=== PATIENT | female | born 1930 | race Caucasian/White ===

== ENCOUNTER 2017-04-26 13:00 | Emergency (ER) | payer OTHER, MEDICARE ==
[~2017-04-26] VITALS: Ht 162.6 cm; Wt 69.0 kg
[2017-04-26 13:05] VITALS: TEMP 36.4; Ht 162.6 cm; Wt 69.0 kg
[2017-04-26] MEDS ORDERED: TELM80TA PO (13:28)
[2017-04-26] MEDS ORDERED: FRS/40 PO (13:28)
[2017-04-26] MEDS ORDERED: ASPI81TA28 PO (13:28)
[2017-04-26] MEDS ORDERED: FERR1TAB13 PO (13:28)
[2017-04-26] MEDS ORDERED: POTA10TA PO (13:28)
[2017-04-26] MEDS ORDERED: PRAV20TA PO (13:28)
[2017-04-26] MEDS ORDERED: ACET-1256 PO (13:28)
[2017-04-26] MEDS ORDERED: AMLO-110 PO (13:28)
[2017-04-26] MEDS ORDERED: CARV3.122 PO (13:28)
[2017-04-26 14:34] LABS: BASO % 0.4 %; BASO ABS # 0.03 K/uL (0-0.2); COMPLETE YES; EOS % 7.3 %; HEMATOCRIT 31.7 % (37-47); IG% 0.1 %; LYMPH % 13.5 %; LYMPH ABS # 0.97 K/uL (1.2-3.4); MEAN CELL VOLUME 90.6 fL (80-100); MEAN CORPUSCULAR HEMOGLOBIN 28.3 pg (25-34); MEAN CORPUSCULAR HGB CONC 31.2 g/dl (32-36); MEAN PLATELET VOLUME 9.7 fL (7.4-10.4); MONO % 7.3 %; NEUT % 71.4 %; PLATELET COUNT 215 K/uL (130-400); WHITE BLOOD COUNT 7.16 K/uL (4.8-10.8)
[2017-04-26 14:47] LABS: PROTHROMBIN TIME (PATIENT) 11.2 SECONDS (9.0-12.0)
[2017-04-26 15:05] LABS: BUN/CREATININE RATIO 14.9 (10-20); CALCIUM 9.2 mg/dl (8.5-10.1); CREATININE 1.4 mg/dl (0.60-1.20); POTASSIUM 3.5 mmol/L (3.5-5.1)
--- NOTE | 2017-04-26 15:06 | DIAGNOSTIC IMAGING REPORT ---
RIGHT TIBIA/FIBULA 2 VIEWS ROUTINE CLINICAL HISTORY: Right lower leg pain status post trauma COMPARISON: None. DISCUSSION: The bones are osteopenic. No acute fractures are visualized. There are moderate osteoarthritic changes present within the knee. There are vascular calcifications present. There is calcaneal spurring. There is a corticated ossicle adjacent medial malleolus. This is felt to be old. There is a probable joint effusion within the knee. IMPRESSION: Osteopenia and degenerative change. No acute fractures are visualized. Probable suprapatellar joint effusion. Electronically signed by: Remigio Liu M.D. 04/26/2017 3:05 PM Dictated Date/Time: 04/26/2017 3:03 PM
--- NOTE | 2017-04-26 15:07 | DIAGNOSTIC IMAGING REPORT ---
PELVIS 1 OR 2 VIEW ROUTINE CLINICAL HISTORY: Pelvic pain status post trauma COMPARISON STUDY: No previous studies for comparison. FINDINGS: Degenerative changes are present within the lumbar spine. No acute fractures or dislocations are visualized. Calcifications projected over the sacrum likely reflect calcifications within uterine fibroids. There is no SI joint diastases. There is no symphysis diastases. IMPRESSION: No acute fractures. Electronically signed by: Remigio Liu M.D. 04/26/2017 3:06 PM Dictated Date/Time: 04/26/2017 3:05 PM
--- NOTE | 2017-04-26 15:08 | DIAGNOSTIC IMAGING REPORT ---
RIGHT FEMUR 3 VIEWS CLINICAL HISTORY: Fall with right leg pain. FINDINGS: AP, frog-leg, and lateral views of the right femur are correlated with pelvic radiograph performed concurrently on 04/26/2017. The skeletal structures are osteopenic. There is no radiographic evidence of right femoral fracture. The visualized right hemipelvis appears intact. Advanced arthritic change is seen in the right hip and knee joints. The overlying soft tissues are normal in appearance noting atherosclerotic calcification of the right femoral artery. Large enthesophytes arise in the anterior superior iliac spine. IMPRESSION: Osteopenia and arthritic change as above. There is no radiographic evidence of right femoral fracture. Electronically signed by: Kian Hassan M.D. 04/26/2017 3:06 PM Dictated Date/Time: 04/26/2017 3:05 PM
--- NOTE | 2017-04-26 15:10 | DIAGNOSTIC IMAGING REPORT ---
L-SPINE MIN 4 VIEWS ROUTINE CLINICAL HISTORY: Low back pain status post trauma COMPARISON STUDY: No previous studies for comparison. FINDINGS: There are surgical clips within the right upper quadrant. There is a 6 mm calcification at the level of the right L2 transverse process. This is of uncertain etiology. There is a mild lumbar scoliosis. There are moderately advanced multilevel degenerative changes with multilevel disc space narrowing. No acute fractures are visualized. There is no pathologic bowel dilatation. Pelvic basin calcifications likely relate to calcified uterine fibroids. IMPRESSION: Moderately advanced multilevel degenerative change. No acute fractures or subluxations are visualized. Electronically signed by: Remigio Liu M.D. 04/26/2017 3:08 PM Dictated Date/Time: 04/26/2017 3:07 PM
--- NOTE | 2017-04-26 16:04 | DIAGNOSTIC IMAGING REPORT ---
ULTRASOUND RIGHT VENOUS DOPP LOWER EXT UNILAT CLINICAL HISTORY: Right leg pain and swelling COMPARISON STUDY: No previous studies for comparison. FINDINGS: Real-time and color flow Doppler imaging were performed. Flow was seen within the femoral, popliteal and calf veins with no intraluminal thrombus demonstrated. The saphenous vein is patent. There is a right popliteal fossa cyst measuring 35 x 7 x 24 mm. There is right calf edema. IMPRESSION: No evidence of right lower extremity DVT. Electronically signed by: Remigio Liu M.D. 04/26/2017 4:03 PM Dictated Date/Time: 04/26/2017 3:58 PM
--- NOTE | 2017-04-26 16:09 | EMERGENCY ROOM VISIT NOTE ---
History First contact with patient: 13:23 Chief Complaint: FALL Stated Complaint: FALL - R LEG BRUISED History of Present Illness The patient is a 86 year old female who presents to the Emergency Room with complaints of fall and right leg pain. The patient had a pacemaker placed at the Hospital in [place] hometown in March and was discharged April 16. She is here staying with a friend who is helping to take care of her. She went to her gr[facility]ons [facility] on April 19. She states that they have a sunken living room. She states that she came in from outside and her transition lenses had not lightened up and she did not see the step and fell down. She complains of pain in the right posterior hip, right knee and right leg. She reports swelling and ecchymosis. She states she is able to "hobble around" with her cane. She denies striking her head or having loss of consciousness. She denies syncope. She denies any pain in her chest or trouble breathing. She denies any abdominal pain, nausea or vomiting. She does take aspirin. She states she has had blood clots in her eye in the past. Review of Systems A 10 system review of systems was completed with positives and pertinent negatives listed in the HPI. Past Medical/Surgical History Medical Problems: (1) Hypertension (2) Pacemaker (3) Sick sinus syndrome Social History Housing Status: lives alone Current/Historical Medications Scheduled Amlodipine (Norvasc), 5 MG PO BID Aspirin (Aspirin Ec), 81 MG PO DAILY Carvedilol (Coreg), 3.125 MG PO BIDM Ferrous Sulfate (Kp Ferrous Sulfate), 325 MG PO DAILY Furosemide (Lasix), 40 MG PO DAILY Potassium Chloride (K-Tabs), 10 MEQ PO DAILY Pravastatin (Pravachol ), 20 MG PO DAILY Telmisartan (Micardis), 80 MG PO DAILY Scheduled PRN Acetaminophen (Tylenol), 500 MG PO Q6 PRN for Mild Pain Allergies Coded Allergies: Celecoxib (Unverified Allergy, Intermediate, ., 04/26/17) Conjugated Estrogens (Unverified Allergy, Intermediate, ., 04/26/17) Levofloxacin (Unverified Allergy, Intermediate, ., 04/26/17) Nitrofurantoin (Unverified Allergy, Intermediate, ., 04/26/17) Quinidine (Unverified Allergy, Intermediate, HEART ALMOST STOPPED, 04/26/17 ) Tetanus Toxoid (Unverified Allergy, Intermediate, HIVES, 04/26/17) Sulfisoxazole (Unverified Adverse Reaction, Intermediate, HEADACHE, ) Physical Exam Vital Signs Date Time Temp Pulse Resp B/P (MAP) Pulse Ox O2 Delivery O2 Flow Rate FiO2 04/26/17 19:46 58 18 145/76 96 Room Air 04/26/17 19:00 60 16 137/72 96 Room Air 04/26/17 18:05 52 16 145/72 96 Room Air 04/26/17 17:07 61 18 165/92 96 Room Air 04/26/17 15:00 62 16 150/66 97 Room Air 04/26/17 13:05 36.4 66 18 155/54 97 Room Air Physical Exam VITALS: Vitals are noted on the nurse's note and reviewed by myself. Vital signs stable. GENERAL: This is an 86-year-old female, in no acute distress, nondiaphoretic, well-developed well-nourished. SKIN: There is moderate diffuse edema and ecchymosis noted over the right lower extremity particularly from the knee to the ankle. There is no tenting of the skin. Capillary reflex less than 2 seconds. HEAD: Normocephalic atraumatic. EARS: External auditory canals clear, tympanic membranes pearly farmer without erythema or effusion bilaterally. EYES: Pupils equal round and reactive to light and accommodation. Conjunctivae without injection, sclerae without icterus. Extraocular movements intact. NOSE: Patent, turbinates without inflammation or discharge. MOUTH: Mucous membranes moist. Tonsils are not enlarged. Pharynx without erythema or exudate. Uvula midline. Airway patent. Tongue does not deviate. NECK: Supple without nuchal rigidity. No lymphadenopathy. No thyromegaly. Cervical spine is nontender. No JVD. HEART: Regular rate and rhythm without murmurs gallops or rubs. LUNGS: Clear to auscultation bilaterally without wheezes, rales or rhonchino retractions or accessory muscle use. MUSCULOSKELETAL: There is tenderness to palpation in the right sciatic notch. There is no significant tenderness to palpation over the lumbar vertebrae or coccyx. There is diffuse ecchymosis and edema to the right lower extremity particularly from the knee to the ankle. There are no palpable cords. There is no significant warmth. The patient has decreased range of motion at the knee , ankle and foot secondary to pain. The calf is supple. There is no exquisite tenderness. NEURO: Patient was alert and oriented to person place and time. Deep tendon reflexes 2+ in the lower extremities bilaterally. No focal neurological deficits. Medical Decision & Procedures ER Provider Diagnostic Interpretation: [~ rep ct add3]] ULTRASOUND RIGHT VENOUS DOPP LOWER EXT UNILAT CLINICAL HISTORY: Right leg pain and swelling COMPARISON STUDY: No previous studies for comparison. FINDINGS: Real-time and color flow Doppler imaging were performed. Flow was seen within the femoral, popliteal and calf veins with no intraluminal thrombus demonstrated. The saphenous vein is patent. There is a right popliteal fossa cyst measuring 35 x 7 x 24 mm. There is right calf edema. IMPRESSION: No evidence of right lower extremity DVT. [~ rep ct add3]] RIGHT FEMUR 3 VIEWS CLINICAL HISTORY: Fall with right leg pain. FINDINGS: AP, frog-leg, and lateral views of the right femur are correlated with pelvic radiograph performed concurrently on 04/26/2017. The skeletal structures are osteopenic. There is no radiographic evidence of right femoral fracture. The visualized right hemipelvis appears intact. Advanced arthritic change is seen in the right hip and knee joints. The overlying soft tissues are normal in appearance noting atherosclerotic calcification of the right femoral artery. Large enthesophytes arise in the anterior superior iliac spine. IMPRESSION: Osteopenia and arthritic change as above. There is no radiographic evidence of right femoral fracture. L-SPINE MIN 4 VIEWS ROUTINE CLINICAL HISTORY: Low back pain status post trauma COMPARISON STUDY: No previous studies for comparison. FINDINGS: There are surgical clips within the right upper quadrant. There is a 6 mm calcification at the level of the right L2 transverse process. This is of uncertain etiology. There is a mild lumbar scoliosis. There are moderately advanced multilevel degenerative changes with multilevel disc space narrowing. No acute fractures are visualized. There is no pathologic bowel dilatation. Pelvic basin calcifications likely relate to calcified uterine fibroids. IMPRESSION: Moderately advanced multilevel degenerative change. No acute fractures or subluxations are visualized. [~ rep ct add3]] PELVIS 1 OR 2 VIEW ROUTINE CLINICAL HISTORY: Pelvic pain status post trauma COMPARISON STUDY: No previous studies for comparison. FINDINGS: Degenerative changes are present within the lumbar spine. No acute fractures or dislocations are visualized. Calcifications projected over the sacrum likely reflect calcifications within uterine fibroids. There is no SI joint diastases. There is no symphysis diastases. IMPRESSION: No acute fractures. RIGHT TIBIA/FIBULA 2 VIEWS ROUTINE CLINICAL HISTORY: Right lower leg pain status post trauma COMPARISON: None. DISCUSSION: The bones are osteopenic. No acute fractures are visualized. There are moderate osteoarthritic changes present within the knee. There are vascular calcifications present. There is calcaneal spurring. There is a corticated ossicle adjacent medial malleolus. This is felt to be old. There is a probable joint effusion within the knee. IMPRESSION: Osteopenia and degenerative change. No acute fractures are visualized. Probable suprapatellar joint effusion. Laboratory Results 04/26/17 14:15 Red Blood Count 3.50, Mean Corpuscular Volume 90.6, Mean Corpuscular Hemoglobin 28.3, Mean Corpuscular Hemoglobin Concent 31.2, Mean Platelet Volume 9.7, Neutrophils (%) (Auto) 71.4, Lymphocytes (%) (Auto) 13.5, Monocytes (%) (Auto) 7.3, Eosinophils (%) (Auto) 7.3, Basophils (%) (Auto) 0.4, Neutrophils # (Auto) 5.11, Lymphocytes # (Auto) 0.97, Monocytes # (Auto) 0.52, Eosinophils # (Auto) 0.52, Basophils # (Auto) 0.03 04/26/17 14:15 Test 04/26/17 14:15 White Blood Count 7.16 K/uL (4.8-10.8) Red Blood Count 3.50 M/uL (4.2-5.4) Hemoglobin 9.9 g/dL (12.0-16.0) Hematocrit 31.7 % (37-47) Mean Corpuscular Volume 90.6 fL (80-100) Mean Corpuscular Hemoglobin 28.3 pg (25-34) Mean Corpuscular Hemoglobin Concent 31.2 g/dl (32-36) Platelet Count 215 K/uL (130-400) Mean Platelet Volume 9.7 fL (7.4-10.4) Neutrophils (%) (Auto) 71.4 % Lymphocytes (%) (Auto) 13.5 % Monocytes (%) (Auto) 7.3 % Eosinophils (%) (Auto) 7.3 % Basophils (%) (Auto) 0.4 % Neutrophils # (Auto) 5.11 K/uL (1.4-6.5) Lymphocytes # (Auto) 0.97 K/uL (1.2-3.4) Monocytes # (Auto) 0.52 K/uL (0.11-0.59) Eosinophils # (Auto) 0.52 K/uL (0-0.5) Basophils # (Auto) 0.03 K/uL (0-0.2) RDW Standard Deviation 48.3 fL (36.4-46.3) RDW Coefficient of Variation 14.5 % (11.5-14.5) Immature Granulocyte % (Auto) 0.1 % Immature Granulocyte # (Auto) 0.01 K/uL (0.00-0.02) Prothrombin Time 11.2 SECONDS (9.0-12.0) Prothromb Time International Ratio 1.0 (0.9-1.1) Activated Partial Thromboplast Time 25.2 SECONDS (21.0-31.0) Partial Thromboplastin Ratio 1.0 Anion Gap 10.0 mmol/L (3-11) Est Creatinine Clear Calc Drug Dose 27.0 ml/min Estimated GFR () 39.1 Estimated GFR (Non- 33.7 BUN/Creatinine Ratio 14.9 (10-20) Calcium Level 9.2 mg/dl (8.5-10.1) Total Bilirubin 0.8 mg/dl (0.2-1) Aspartate Amino Transf (AST/SGOT) 25 U/L (15-37) Alanine Aminotransferase (ALT/SGPT) 25 U/L (12-78) Alkaline Phosphatase 88 U/L (45-117) Total Creatine Kinase 56 U/L (26-192) Total Protein 8.4 gm/dl (6.4-8.2) Albumin 4.1 gm/dl (3.4-5.0) Globulin 4.3 gm/dl (2.5-4.0) Albumin/Globulin Ratio 1.0 (0.9-2) ED Course The patient was seen and examined. The patient has a mild anemia. She has mild renal insufficiency. There is no previous for comparison. The patient is recovering from a hospital admission and pacemaker placement. The patient has not been active. She is not getting around well. She has fallen. She has pain and swelling in the right leg. This may represent a ligamentous or meniscal injury in the right knee. This could represent musculoskeletal pain. However, the patient is not doing well at home and may benefit from inpatient rehabilitation. At this time, case management was involved to begin a referral to [facility]. The case was signed out to Joanie Lundberg PA-C. Please see her dictation for disposition. The patient was also seen and examined by who agrees with the assessment and treatment plan. Medical Decision The differential diagnosis includes ambulatory dysfunction, cellulitis, hematoma , DVT, among others Impression Primary Impression: Fall Additional Impressions: Contusion of multiple sites Knee effusion Ambulatory dysfunction Departure Information Referrals No Doctor, Assigned (PCP) Patient Instructions [facility] Health Problem Qualifiers
--- NOTE | 2017-04-26 17:21 | EMERGENCY ROOM VISIT NOTE ---
ED Visit Note First contact with patient: 17:16 This patient was signed out to me from Jessi Salmon PA-C at change of shift. She is an 86-year-old female that presented to the emergency department after a fall. Please see her note for details. The patient and the patient's family do not feel that they are able to care for her at home. We are currently awaiting their arrival of the patient's son to make a decision whether or not the patient is going to be admitted to the hospital or discharged to [facility]. Once the patient's son arrived, the decision was made to send the patient to [facility]. Case management was involved. Transportation arrangements were made, and the patient was discharged in good condition Diagnosis: Fall, leg contusion Dispo: transfer to [facility]
--- NOTE | 2017-04-26 17:38 | EMERGENCY ROOM VISIT NOTE ---
ED Visit Note First contact with patient: 15:05 The patient was seen and examined with Ruma Salmon PA-c. I agree with the history, physical and findings. Please see the note for disposition and details.
[2017-04-26 19:46] VITALS: BP 145/76; PULSE 58; O2SAT 96
== END 2017-04-26 19:48 ==
LOC: C.EDB 13:02 → C.EDD 19:48
DX: S80.11XA Contusion of right lower leg, initial encounter (principal); S70.01XA Contusion of right hip, initial encounter; S80.01XA Contusion of right knee, initial encounter; M25.461 Effusion, right knee; R26.89 Other abnormalities of gait and mobility; W10.9XXA Fall (on) (from) unspecified stairs and steps, initial encounter; Y92.018 Other place in single-family (private) house as the place of occurrence of the external cause; I10 Essential (primary) hypertension; I49.5 Sick sinus syndrome; Z95.0 Presence of cardiac pacemaker; Z79.82 Long term (current) use of aspirin; Z86.718 Personal history of other venous thrombosis and embolism

== ENCOUNTER → 2017-04-28 | Outpatient (CLI) | payer OTHER ==
[~2017-04-28] MED LIST: ACET-1256 PO; AMLO-110 PO; ASPI81TA28 PO; CARV3.122 PO; FERR1TAB13 PO; FRS/40 PO; POTA10TA PO; PRAV20TA PO; TELM80TA PO
--- NOTE | 2017-04-28 16:29 | DIAGNOSTIC IMAGING REPORT ---
RIGHT ANKLE MIN 3 VIEWS ROUTINE CLINICAL HISTORY: Right ankle pain following injury. COMPARISON: Right tibia and fibula radiographs April 26, 2017. FINDINGS: A lucency projects over the distal right fibula. This is probably artifactual. There is no definite acute fracture. There is moderate ankle soft tissue swelling. Irregularity of the medial malleolus is chronic. Talar dome is intact. There is moderate plantar calcaneal spurring. There is mild posterior calcaneal spurring. IMPRESSION: 1. No definite fracture of the right ankle. Lucency projecting over the distal right fibula is likely artifactual. 2. Moderate ankle soft tissue swelling. Electronically signed by: Fredy Larson M.D. 04/28/2017 4:27 PM Dictated Date/Time: 04/28/2017 4:25 PM
--- NOTE | 2017-05-16 07:20 | CODING QUERY NO DIAGNOSIS ---
TREATMENT RENDERED WITHOUT A DIAGNOSIS To promote full compliance with coding requirements relating to patient care, physician participation is requested in all cases of pit operator uncertainty. Please assist us with providing a diagnosis/symptom for the test(s) below: A diagnosis/symptom was not documented on your Order. A valid diagnosis/symptom is required to bill all insurances. Please remember that we are unable to code a diagnosis of rule out, probable, possible, questionable, or suspected. Tests that require a diagnosis: * ANKLE MIN 3 VIEWS ROUTINE DIAGNOSIS: Provider Signature: Date: Thank you Mady Croton [employer] Once completed, please kindly fax back to [phone] For questions please call [phone]
== END | disposition home or self-care (01) ==
LOC: C.RAD 15:55
PROVIDERS: ATTEND Physical Medicine & Rehabilitation
DX: S82.899A Other fracture of unspecified lower leg, initial encounter for closed fracture (principal); X58.XXXA Exposure to other specified factors, initial encounter; M79.89 Other specified soft tissue disorders

== ENCOUNTER 2018-10-31 09:00 | Inpatient (IN) ==
[2018-10-31] MEDS ORDERED: MoRPHine SULFATE 4 MG/ML 1 ML CARP\\VIAL IV PRN (09:47)
[2018-10-31] MEDS ORDERED: ONDANSETRON INJ 2 MG/ML 2 ML VIAL IV STA (09:47)
--- NOTE | 2018-10-31 09:51 | XRay Report ---
XR chest 1V portable HISTORY: Sepsis COMPARISON: None. FINDINGS: No pneumothorax. There are small bilateral pleural effusions. The heart is mildly enlarged. Postoperative changes and a cardiac valve prosthesis are noted. Left-sided dual-chamber pacemaker. T here is mild central pulmonary vascular congestion without overt edema. Old, healed right-sided rib f ractures. Bibasilar densities favor atelectasis from the pleural effusions. Advanced degenerative shayan nges within the right shoulder. IMPRESSION: 1. Cardiomegaly with mild central pulmonary vascular congestion. 2. Small bilateral pleural effusions. Electronically signed by: Reid Silver M.D. 10/31/2018 9:49 AM
--- NOTE | 2018-10-31 10:03 | Emergency Department Note ---
Entered by Benita Patel acting as a scribe for Marcos Martínez DO History of Present Illness General Chief complaint: Illness Stated complaint: abd pain Source: patient, family (son) and other (nursing staff) History of Present Illness Provider complaint: abdominal pain Onset (ago): hour(s) (this morning) Location: abdomen Quality: + other (pain) Associated symptoms: + nausea/vomiting and + other (diarrhea); no fever/chills The patient is an 88 year old female who presents to the Emergency Room with complaints of abdominal pain beginning this morning. She states that she vomited this morning and has had dry heaves since. She reports a history of heart failure but denies a history of liver problems. Per nursing staff, the patient has also had diarrhea and vomiting. Nursing staff states that the patient is not febrile. Her son states that the patient has had an upset stomach since yesterday morning. Her son states that the patient ate a hamburger last night and was able to keep that down but threw up her breakfast and medications this morning. Home Medications Home Medications Medication Instructions Recorded Confirmed Type acetaminophen 325 mg PO Q6H PRN 10/31/18 10/31/18 History aspirin 81 mg PO QAM 10/31/18 10/31/18 History bacitracin 1 applic TOPICAL DAILY PRN 10/31/18 10/31/18 History carvedilol [Coreg] 3.125 mg PO HS 10/31/18 10/31/18 History dextromethorphan-guaifenesin 10 ml PO Q4 PRN 10/31/18 10/31/18 History [Robitussin Cough-Chest Joseph DM] diphenhydramine HCl [Benadryl] 25 mg PO Q8 PRN 10/31/18 10/31/18 History iron ag,[id number] 1 tab PO BID 10/31/18 10/31/18 History [Niferex (Sumalate-Quatrefolic)] losartan [Cozaar] 100 mg PO QAM 10/31/18 10/31/18 History magnesium hydroxide [Milk of 30 ml PO DAILY PRN 10/31/18 10/31/18 History Magnesia] pantoprazole [Protonix] 40 mg PO QAM 10/31/18 10/31/18 History phenyleph-min oil-petrolatum 1 applic AR BID PRN 10/31/18 10/31/18 History [Preparation H] potassium chloride [Klor-Con 10] 10 meq PO QAM 10/31/18 10/31/18 History pravastatin [Pravachol] 20 mg PO HS 10/31/18 10/31/18 History torsemide [Demadex] 20 mg PO BID 10/31/18 10/31/18 History Allergies Allergy/AdvReac Type Severity Reaction Status Date / Time celecoxib Allergy Intermediate . Unverified 10/31/18 10:50 estrogens, conjugated Allergy Intermediate . Unverified 10/31/18 10:50 levofloxacin Allergy Intermediate . Unverified 10/31/18 10:50 nitrofurantoin Allergy Intermediate . Unverified 10/31/18 10:50 quinidine Allergy Intermediate HEART Unverified 10/31/18 10:50 ALMOST STOPPED tetanus toxoid, adsorbed Allergy Intermediate HIVES Unverified 10/31/18 10:50 sulfisoxazole AdvReac Intermediate HEADACHE Unverified 10/31/18 10:50 Past Med/Surg History Medical History HTN (hypertension) (Chronic) Pacemaker (Chronic) Family History Other No pertinent family history Social History Current Living Situation: Family Other Information That Helps Us Care for You: No Feels Safe at Home: Yes Safety Concerns: Feels Safe At This Time Smoking Status: Never smoker Do You Dip or Chew Tobacco: No Second Hand Exposure: No Tobacco Cessation Education Requested by Patient: No Hx Alcohol Use: No Hx Substance Use: No Beliefs That Will Affect Care: None Preferred Language: Kinyarwanda Communication Ability: Effective 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 and A total of 10 systems reviewed and were otherwise negative Physical Exam Vital Signs Vital Signs - 24 hr 10/31/18 09:16 10/31/18 10:12 10/31/18 12:00 Temperature 36.6 C Temperature Source Oral Sepsis Recent Fever Within 48 Hours No Sepsis New/Unexplained Change in Mental Status No Sepsis Action Taken by Nursing No Action Required Pulse Rate 74 Pulse Rate [Apical] 60 60 Respiratory Rate 16 16 20 Respiratory Effort / Characteristics Non-Labored Respiratory Depth Normal Respiratory Pattern Blood Pressure 143/67 H Blood Pressure [Right Arm] 157/50 H 121/45 L Blood Pressure Mean 92 Blood Pressure Mean [Right Arm] 85 70 Pulse Oximetry 88 L 99 99 Oxygen Delivery Method Room Air Room Air Nasal Cannula Oxygen Flow Rate 3 10/31/18 12:33 10/31/18 13:00 10/31/18 13:11 Temperature Temperature Source Sepsis Recent Fever Within 48 Hours Sepsis New/Unexplained Change in Mental Status Sepsis Action Taken by Nursing Pulse Rate Pulse Rate [Apical] 60 60 Respiratory Rate 10 L 12 Respiratory Effort / Characteristics Non-Labored Non-Labored Spontaneous Short of Breath SOB on Exertion Respiratory Depth Normal Normal Shallow Respiratory Pattern Regular Blood Pressure Blood Pressure [Right Arm] 122/77 131/71 Blood Pressure Mean Blood Pressure Mean [Right Arm] 92 91 Pulse Oximetry 96 98 Oxygen Delivery Method Nasal Cannula Nasal Cannula Nasal Cannula Oxygen Flow Rate 3 3 3 10/31/18 13:30 Temperature Temperature Source Sepsis Recent Fever Within 48 Hours Sepsis New/Unexplained Change in Mental Status Sepsis Action Taken by Nursing Pulse Rate Pulse Rate [Apical] 59 L Respiratory Rate 15 Respiratory Effort / Characteristics Non-Labored Respiratory Depth Normal Respiratory Pattern Blood Pressure Blood Pressure [Right Arm] 128/51 L Blood Pressure Mean Blood Pressure Mean [Right Arm] 76 Pulse Oximetry 99 Oxygen Delivery Method Nasal Cannula Oxygen Flow Rate 3 GENERAL: The patient is awake and very uncomfortable appearing. EYES: The conjunctivae are clear. The pupils are round and reactive. EARS, NOSE, MOUTH AND THROAT: The nose is without any evidence of any deformity. Mucous membranes are moist tongue is midline NECK: There is significant JVD bilaterally. RESPIRATORY: Diminished breath sounds were noted throughout. There are rales in all lung mata. Hi or rales CARDIOVASCULAR: Regular rate and rhythm noted there no murmurs rubs or gallops normal S1 normal S2 GASTROINTESTINAL: The abdomen is very distended and diffusely tender. There is no guarding or rigidity. MUSCULOSKELETAL/EXTREMITIES: There is no evidence of gross deformity full range of motion is noted in the hips and shoulders SKIN: There is lower extremity edema noted up to the abdominal wall. NEUROLOGIC: Patient is awake alert and oriented x3. Course 0914: Past medical records reviewed. The patient was evaluated in room C1B, and a complete history and physical examination were performed. 1233: I updated the patient's family. 1244: I discussed the patient's case with Dr. Myrna Maddox who will evaluate the patient for further management. Consultations Consultation #1: Dr. Myrna Maddox Time: 12:44 Administered Medications Fentanyl Citrate (Fentanyl Citrate) 50 mcg IV Q15M PRN PRN Reason: Pain Stop: 11/14/18 12:05 Last Admin: 10/31/18 12:15 Dose: 50 mcg Discontinued Medications Furosemide (Lasix) 40 mg IV NOW STA Stop: 10/31/18 12:04 Last Admin: 10/31/18 12:16 Dose: 40 mg Ondansetron HCl (Zofran) 4 mg IV NOW STA Stop: 10/31/18 09:48 Last Admin: 10/31/18 10:13 Dose: 4 mg Medical Decision Making Differential Diagnosis Differential diagnosis: Etiologies such as biliary colic, cholecystitis, hepatitis, perihepatitis, pancreatitis, cardiac disease, pancreatitis, gastritis, peptic ulcer disease, appendicitis, ovarian cyst, ovarian torsion, pelvic inflammatory disease, cystitis, diverticulitis, mesenteric ischemia, inflammatory bowel disease, ileus , bowel obstruction, aortic pathology, shingles, as well as others were considered. Medical Records Attestation: I reviewed the patient's medical records. Home Medications Current Medication List: was personally reviewed by me Laboratory Data Attestation: I reviewed the patient's lab results. Result diagrams: 10/31/18 09:52 10/31/18 09:52 Lab Results 10/31/18 10/31/18 10/31/18 Range/Units 09:10 09:52 09:52 WBC 4.17 L (4.8-10.8) K/uL RBC 3.82 L (4.2-5.4) M/uL Hgb 9.1 L (12.0-16.0) g/dL Hct 29.8 L (37-47) % MCV 78.0 L (80-100) fL MCH 23.8 L (25-34) pg MCHC 30.5 L (32-36) g/dL RDW Std Deviation 53.3 H (36.4-46.3) fL RDW Coeff of Amos 18.6 H (11.5-14.5) % Plt Count 111 L (130-400) K/uL MPV 10.5 H (7.4-10.4) fL Immature Gran % (Auto) 0.2 % Neut % (Auto) 67.1 % Lymph % (Auto) 8.9 % Dukes % (Auto) 19.7 % Eos % (Auto) 3.4 % Baso % (Auto) 0.7 % Immature Gran # (Auto) 0.01 (0.00-0.02) K/uL Neut # (Auto) 2.80 (1.4-6.5) K/uL Lymph # (Auto) 0.37 L (1.2-3.4) K/uL Dukes # (Auto) 0.82 H (0.11-0.59) K/uL Eos # (Auto) 0.14 (0-0.5) K/uL Baso # (Auto) 0.03 (0-0.2) K/uL PT 12.5 H (9.0-12.0) Seconds INR 1.3 H (0.9-1.1) APTT 29.3 (21.0-31.0) Seconds PTT Ratio 1.1 VBG pH (7.36-7.41) VBG pCO2 (38-50) mmHg VBG pO2 mmHg VBG HCO3 mmol/L VBG O2 Saturation % VBG Base Excess mEq/L Barometric Pressure mm/Hg Sodium (136-145) mmol/L Potassium (3.5-5.1) mmol/L Chloride (98-107) mmol/L Carbon Dioxide (21-32) mmol/L Anion Gap (3-11) BUN (7-18) mg/dl Creatinine (0.6-1.2) mg/dl Est Cr Clr Drug Dosing Est GFR ( Amer) Est GFR (Non-Af Amer) BUN/Creatinine Ratio (10-20) Glucose (70-99) mg/dl Lactate (0.4-2.0) mmol/L Calcium (8.5-10.1) mg/dl Total Bilirubin (0.2-1) mg/dl AST (15-37) U/L ALT (12-78) U/L Alkaline Phosphatase (45-117) U/L Troponin I (0-0.045) ng/ml C-Reactive Protein (0-0.29) mg/dl Total Protein (6.4-8.2) gm/dl Albumin (3.4-5.0) gm/dl Globulin (2.5-4.0) gm/dl Albumin/Globulin Ratio (0.9-2) Procalcitonin (0-0.5) ng/ml Urine Color Urine Appearance (Clear) Urine pH (4.5-7.5) Ur Specific Mccausland (1.000-1.030) Urine Protein (Negative) Urine Glucose (UA) (Negative) Urine Ketones (Negative) Urine Blood (Negative) Urine Nitrite (Negative) Urine Bilirubin (Negative) Urine Urobilinogen (Negative) Ur Leukocyte Esterase (Negative) Urine WBC (Auto) (0-5) /hpf Urine RBC (Auto) (0-4) /hpf U Hyaline Cast (Auto) (0-5) /lpf U Epithel Cells (Auto) (0-5) /lpf Urine Bacteria (Auto) (Negative) Ur Renal Epithelial Cell (0-5) /lpf Amorphous Sediment (None Prsent) Stl C. diff Tox B Gene Neg C.diff Toxin B (Neg) 10/31/18 10/31/18 10/31/18 Range/Units 09:52 09:52 09:52 WBC (4.8-10.8) K/uL RBC (4.2-5.4) M/uL Hgb (12.0-16.0) g/dL Hct (37-47) % MCV (80-100) fL MCH (25-34) pg MCHC (32-36) g/dL RDW Std Deviation (36.4-46.3) fL RDW Coeff of Amos (11.5-14.5) % Plt Count (130-400) K/uL MPV (7.4-10.4) fL Immature Gran % (Auto) % Neut % (Auto) % Lymph % (Auto) % Dukes % (Auto) % Eos % (Auto) % Baso % (Auto) % Immature Gran # (Auto) (0.00-0.02) K/uL Neut # (Auto) (1.4-6.5) K/uL Lymph # (Auto) (1.2-3.4) K/uL Dukes # (Auto) (0.11-0.59) K/uL Eos # (Auto) (0-0.5) K/uL Baso # (Auto) (0-0.2) K/uL PT (9.0-12.0) Seconds INR (0.9-1.1) APTT (21.0-31.0) Seconds PTT Ratio VBG pH (7.36-7.41) VBG pCO2 (38-50) mmHg VBG pO2 mmHg VBG HCO3 mmol/L VBG O2 Saturation % VBG Base Excess mEq/L Barometric Pressure mm/Hg Sodium 139 (136-145) mmol/L Potassium 4.0 (3.5-5.1) mmol/L Chloride 105 (98-107) mmol/L Carbon Dioxide 26 (21-32) mmol/L Anion Gap 7.0 (3-11) BUN 47 H (7-18) mg/dl Creatinine 2.49 H (0.6-1.2) mg/dl Est Cr Clr Drug Dosing Not Reportable Est GFR ( Amer) 19.2 Est GFR (Non-Af Amer) 16.6 BUN/Creatinine Ratio 19.0 (10-20) Glucose 113 H (70-99) mg/dl Lactate 1.4 (0.4-2.0) mmol/L Calcium 8.5 (8.5-10.1) mg/dl Total Bilirubin 1.3 H (0.2-1) mg/dl AST 20 (15-37) U/L ALT 19 (12-78) U/L Alkaline Phosphatase 74 (45-117) U/L Troponin I 0.049 H* (0-0.045) ng/ml C-Reactive Protein 0.65 H (0-0.29) mg/dl Total Protein 8.3 H (6.4-8.2) gm/dl Albumin 3.4 (3.4-5.0) gm/dl Globulin 4.9 H (2.5-4.0) gm/dl Albumin/Globulin Ratio 0.7 L (0.9-2) Procalcitonin 0.09 (0-0.5) ng/ml Urine Color Urine Appearance (Clear) Urine pH (4.5-7.5) Ur Specific Mccausland (1.000-1.030) Urine Protein (Negative) Urine Glucose (UA) (Negative) Urine Ketones (Negative) Urine Blood (Negative) Urine Nitrite (Negative) Urine Bilirubin (Negative) Urine Urobilinogen (Negative) Ur Leukocyte Esterase (Negative) Urine WBC (Auto) (0-5) /hpf Urine RBC (Auto) (0-4) /hpf U Hyaline Cast (Auto) (0-5) /lpf U Epithel Cells (Auto) (0-5) /lpf Urine Bacteria (Auto) (Negative) Ur Renal Epithelial Cell (0-5) /lpf Amorphous Sediment (None Prsent) Stl C. diff Tox B Gene (Neg) 10/31/18 10/31/18 Range/Units 09:52 11:30 WBC (4.8-10.8) K/uL RBC (4.2-5.4) M/uL Hgb (12.0-16.0) g/dL Hct (37-47) % MCV (80-100) fL MCH (25-34) pg MCHC (32-36) g/dL RDW Std Deviation (36.4-46.3) fL RDW Coeff of Amos (11.5-14.5) % Plt Count (130-400) K/uL MPV (7.4-10.4) fL Immature Gran % (Auto) % Neut % (Auto) % Lymph % (Auto) % Dukes % (Auto) % Eos % (Auto) % Baso % (Auto) % Immature Gran # (Auto) (0.00-0.02) K/uL Neut # (Auto) (1.4-6.5) K/uL Lymph # (Auto) (1.2-3.4) K/uL Dukes # (Auto) (0.11-0.59) K/uL Eos # (Auto) (0-0.5) K/uL Baso # (Auto) (0-0.2) K/uL PT (9.0-12.0) Seconds INR (0.9-1.1) APTT (21.0-31.0) Seconds PTT Ratio VBG pH 7.37 (7.36-7.41) VBG pCO2 43 (38-50) mmHg VBG pO2 36 mmHg VBG HCO3 24 mmol/L VBG O2 Saturation 65.4 % VBG Base Excess -1.4 mEq/L Barometric Pressure 736.4 mm/Hg Sodium (136-145) mmol/L Potassium (3.5-5.1) mmol/L Chloride (98-107) mmol/L Carbon Dioxide (21-32) mmol/L Anion Gap (3-11) BUN (7-18) mg/dl Creatinine (0.6-1.2) mg/dl Est Cr Clr Drug Dosing Est GFR ( Amer) Est GFR (Non-Af Amer) BUN/Creatinine Ratio (10-20) Glucose (70-99) mg/dl Lactate (0.4-2.0) mmol/L Calcium (8.5-10.1) mg/dl Total Bilirubin (0.2-1) mg/dl AST (15-37) U/L ALT (12-78) U/L Alkaline Phosphatase (45-117) U/L Troponin I (0-0.045) ng/ml C-Reactive Protein (0-0.29) mg/dl Total Protein (6.4-8.2) gm/dl Albumin (3.4-5.0) gm/dl Globulin (2.5-4.0) gm/dl Albumin/Globulin Ratio (0.9-2) Procalcitonin (0-0.5) ng/ml Urine Color Yellow Urine Appearance Turbid H (Clear) Urine pH 5.0 (4.5-7.5) Ur Specific Mccausland 1.016 (1.000-1.030) Urine Protein Negative (Negative) Urine Glucose (UA) Negative (Negative) Urine Ketones Negative (Negative) Urine Blood 2+ H (Negative) Urine Nitrite Negative (Negative) Urine Bilirubin Negative (Negative) Urine Urobilinogen Negative (Negative) Ur Leukocyte Esterase Negative (Negative) Urine WBC (Auto) 1-5 (0-5) /hpf Urine RBC (Auto) 5-10 H (0-4) /hpf U Hyaline Cast (Auto) 0 (0-5) /lpf U Epithel Cells (Auto) >30 H (0-5) /lpf Urine Bacteria (Auto) Negative (Negative) Ur Renal Epithelial Cell 5-10 H (0-5) /lpf Amorphous Sediment Present H (None Prsent) Stl C. diff Tox B Gene (Neg) Imaging Data Radiologist's Impression: Radiology results as stated below per my review and the radiologist's interpretation: XR chest 1V portable HISTORY: Sepsis COMPARISON: None. FINDINGS: No pneumothorax. There are small bilateral pleural effusions. The heart is mildly enlarged. Postoperative changes and a cardiac valve prosthesis are noted. Left-sided dual-chamber pacemaker. There is mild central pulmonary vascular congestion without overt edema. Old, healed right-sided rib fractures. Bibasilar densities favor atelectasis from the pleural effusions. Advanced degenerative changes within the right shoulder. IMPRESSION: 1. Cardiomegaly with mild central pulmonary vascular congestion. 2. Small bilateral pleural effusions. Electronically signed by: Reid Silver M.D. 10/31/2018 9:49 AM ABDOMEN AND PELVIS CT WITHOUT CONTRAST CT DOSE: 1093.70 mGy.cm HISTORY: Generalized abdominal pain. vomiting TECHNIQUE: Multiaxial CT images of the abdomen and pelvis were performed without contrast. A dose lowering technique was utilized adhering to the principles of ALARA. COMPARISON STUDY: None. FINDINGS: Moderate right and small left pleural effusions. Consolidation within the bilateral lower lobes posteriorly likely represent compressive atelectasis. The heart is mildly enlarged. Pacemaker wires are noted. Aortic valve prosthesis is noted. No pneumoperitoneum. No pneumatosis. No suspicious lytic or blastic osseous lesions. Severe body wall edema. Cholecystectomy. The unenhanced liver, adrenal glands, pancreas, and kidneys are unremarkable. No renal or ureteral stones. No hydronephrosis. The spleen is mildly enlarged measuring 13 cm in length. Calcified plaque throughout the normal caliber abdominal aorta. No significant retroperitoneal lymphadenopathy. Small amount of ascites is present. Calcifications within the uterus consistent with fibroids. The bladder is not well-distended but appears unremarkable. Suboptimal evaluation for bowel pathology due to the lack of intravenous and oral contrast. However, there is no definite bowel wall thickening or obstruction. Sigmoid diverticulosis. No evidence for diverticulitis. IMPRESSION: 1. Severe body wall edema, bilateral pleural effusions, and a small amount of ascites. 2. Mild splenomegaly. 3. No definite bowel wall thickening or obstruction. 4. Cholecystectomy. 5. Calcified uterine fibroids. 6. Colonic diverticulosis. No evidence for diverticulitis. Electronically signed by: Reid Silver M.D. 10/31/2018 11:37 AM ECG Data Attestation: I personally reviewed and interpreted this ECG as follows: Indication: abdominal pain Rate (beats per minute): 61 Rhythm: other (atrial paced) Findings: + ST depression (inferior and lateral); no PAC, no PVC and no ectopy Comparison ECG Date: no prior available Blood Pressure Blood Pressure Findings: Low blood pressure Blood Pressure Disposition: further management by hospitalist CHELA Valentino The patient is an 88-year-old female who presented to the emergency department for an evaluation of difficulty breathing and abdominal pain nausea vomiting and diarrhea. The patient had very distended abdomen with anasarca. I discussed the patient's laboratory and radiographic studies with her. She was found to have signs of congestive failure with an elevated creatinine. She was treated with a small amount of Lasix and a Meade catheter was placed. She was reevaluated multiple times. The patient does not have a local physician. At this time this does appear to be consistent with volume overload. I discussed this case with the on-call [facility] hospitalist. They have agreed to evaluate the patient in the emergency department for further management and disposition. Impression & Plan Pancytopenia, Anasarca, CHF (congestive heart failure) Discharge Plan Visit Data Chief Complaint: Illness Stated Complaint: abd pain ED Provider: Marcos Martínez Discharge Problem: Pancytopenia, Anasarca, CHF (congestive heart failure) Patient Disposition: Being Evaluated by Hospitalist Forms Stand Alone Forms: My [facility] Prescriptions Prescriptions: No Action acetaminophen 325 mg Tablet 325 mg PO Q6H PRN (Reason: Pain) RF: 0 torsemide [Demadex] 20 mg Tablet 20 mg PO BID RF: 0 bacitracin 500 unit/gram Ointment 1 applic TOPICAL DAILY PRN (Reason: REMOVAL OF PICC) RF: 0 potassium chloride [Klor-Con 10] 10 mEq tablet extended release 10 meq PO QAM RF: 0 aspirin 81 mg Tablet,Delayed Release (Dr/Ec) 81 mg PO QAM RF: 0 carvedilol [Coreg] 3.125 mg tablet 3.125 mg PO HS RF: 0 magnesium hydroxide [Milk of Magnesia] 400 mg/5 mL Suspension 30 ml PO DAILY PRN (Reason: Constipation) RF: 0 pantoprazole [Protonix] 40 mg Tablet,Delayed Release (Dr/Ec) 40 mg PO QAM RF: 0 diphenhydramine HCl [Benadryl] 25 mg Capsule 25 mg PO Q8 PRN (Reason: Itching) RF: 0 pravastatin [Pravachol] 20 mg tablet 20 mg PO HS RF: 0 dextromethorphan-guaifenesin [Robitussin Cough-Chest Joseph DM] 5-100 mg/5 mL Liquid 10 ml PO Q4 PRN (Reason: Cough) RF: 0 losartan [Cozaar] 100 mg tablet 100 mg PO QAM RF: 0 phenyleph-min oil-petrolatum [Preparation H] 0.25-14-74.9 % Ointment 1 applic AR BID PRN (Reason: Itching) RF: 0 iron ag,[id number] [Niferex (Sumalate-Quatrefolic)] 150 mg iron- 60 mg-1 mg Tablet 1 tab PO BID RF: 0 Referrals Referrals: PCP,NO [Primary Care Provider] - The scribe's documentation has been prepared under my direction and personally reviewed by me in its entirety. I confirm that the note above accurately reflects all work, treatment, procedures, and medical decision making performed by me.
[2018-10-31 10:07] LABS: Base Excess VBG -1.4 mEq/L; Oxygen Saturation VBG 65.4 %; pH VBG 7.37 (7.36-7.41)
[2018-10-31 10:12] LABS: INR 1.3 (0.9-1.1); Partial Thromboplastin Ratio 1.1; Partial Thromboplastin Time 29.3 Seconds (21.0-31.0); Prothrombin Time 12.5 Seconds (9.0-12.0)
[2018-10-31 10:16] LABS: Hematocrit (blood only) 29.8 % (37-47); Hemoglobin 9.1 g/dL (12.0-16.0); Mean Corpuscular Hgb Conc 30.5 g/dL (32-36); Mean Platelet Volume 10.5 fL (7.4-10.4); Platelet Count 111 K/uL (130-400); RDW Coefficient of Variation 18.6 % (11.5-14.5); RDW Standard Deviation 53.3 fL (36.4-46.3); Red Blood Count 3.82 M/uL (4.2-5.4); White Blood Count 4.17 K/uL (4.8-10.8)
[2018-10-31 10:19] LABS: Alanine Aminotransferase 19 U/L (12-78); Albumin Level 3.4 gm/dl (3.4-5.0); Aspartate Aminotransferase 20 U/L (15-37); Blood Urea Nitrogen 47 mg/dl (7-18); C Reactive Protein 0.65 mg/dl (0-0.29); Calcium 8.5 mg/dl (8.5-10.1); Carbon Dioxide 26 mmol/L (21-32); Chloride 105 mmol/L (98-107); Est GFR (African American) 19.2; Est GFR (Non-African American) 16.6; Glucose 113 mg/dl (70-99); Sodium 139 mmol/L (136-145)
[2018-10-31 10:28] LABS: Albumin Globulin Ratio 0.7 (0.9-2); Alkaline Phosphatase 74 U/L (45-117); Bilirubin,Total 1.3 mg/dl (0.2-1); Globulin 4.9 gm/dl (2.5-4.0); Total Protein 8.3 gm/dl (6.4-8.2); Troponin I 0.049 ng/ml (0-0.045)
[2018-10-31 10:30] LABS: Basophils # (auto) 0.03 K/uL (0-0.2); Basophils % (auto) 0.7 %; Eosinophils # (auto) 0.14 K/uL (0-0.5); Eosinophils % (auto) 3.4 %; Immature Granulocytes # (auto) 0.01 K/uL (0.00-0.02); Immature Granulocytes % (auto) 0.2 %; Lymphocytes # (auto) 0.37 K/uL (1.2-3.4); Lymphocytes % (auto) 8.9 %; Monocytes # (auto) 0.82 K/uL (0.11-0.59); Monocytes % (auto) 19.7 %; Neutrophils % (auto) 67.1 %
--- NOTE | 2018-10-31 11:38 | CT Scan Report ---
ABDOMEN AND PELVIS CT WITHOUT CONTRAST CT DOSE: 1093.70 mGy.cm HISTORY: Generalized abdominal pain. vomiting TECHNIQUE: Multiaxial CT images of the abdomen and pelvis were performed without contrast. A dose lo wering technique was utilized adhering to the principles of ALARA. COMPARISON STUDY: None. FINDINGS: Moderate right and small left pleural effusions. Consolidation within the bilateral lower l obes posteriorly likely represent compressive atelectasis. The heart is mildly enlarged. Pacemaker wi res are noted. Aortic valve prosthesis is noted. No pneumoperitoneum. No pneumatosis. No suspicious l ytic or blastic osseous lesions. Severe body wall edema. Cholecystectomy. The unenhanced liver, adren al glands, pancreas, and kidneys are unremarkable. No renal or ureteral stones. No hydronephrosis. Th e spleen is mildly enlarged measuring 13 cm in length. Calcified plaque throughout the normal caliber abdominal aorta. No significant retroperitoneal lymphadenopathy. Small amount of ascites is present. Calcifications within the uterus consistent with fibroids. The bladder is not well-distended but madelaine ears unremarkable. Suboptimal evaluation for bowel pathology due to the lack of intravenous and oral contrast. However, there is no definite bowel wall thickening or obstruction. Sigmoid diverticulosis. No evidence for diverticulitis. IMPRESSION: 1. Severe body wall edema, bilateral pleural effusions, and a small amount of ascites. 2. Mild splenomegaly. 3. No definite bowel wall thickening or obstruction. 4. Cholecystectomy. 5. Calcified uterine fibroids. 6. Colonic diverticulosis. No evidence for diverticulitis. Electronically signed by: Reid Silver M.D. 10/31/2018 11:37 AM
[2018-10-31] MEDS ORDERED: FUROSEMIDE 40 MG/4 ML VIAL IV STA (12:03)
[2018-10-31] MEDS ORDERED: fentaNYL citrate 100 MCG/2 ML VIAL IV PRN (12:06)
[2018-10-31 12:07] LABS: Appearance Urine Turbid (Clear); Bacteria Urine Automated Negative (Negative); Bilirubin Urine Negative (Negative); Blood Urine 2+ (Negative); Color Urine Yellow; Epithelial Cell Urine Auto >30 /lpf (0-5); Glucose Urine UA Negative (Negative); Ketones Urine Negative (Negative); Leukocyte Esterase Urine Negative (Negative); Nitrite Urine Negative (Negative); Protein Urine Negative (Negative); Specific Gravity Urine 1.016 (1.000-1.030); Urobilinogen Urine Negative (Negative)
[2018-10-31 12:27] LABS: Amorphous Sediment Urine Present (None Prsent); Cast Urine Automated 0 /lpf (0-5)
--- NOTE | 2018-10-31 13:01 | History & Physical Report ---
Date of Service October 31, 2018 Assessment & Plan (1) CHF (congestive heart failure): - Admit to tele PCU - Trend cardiac biomarkers, initial set was elevated - EKG reviewed showing an atrial paced rhythm - Check 2 D echo - Cardiology consulted - Have requested HIM records from [facility] from recent hospitalization - Lasix 40 mg IV given in the ER, will continue with 60 mg IV twice daily with severe anasarca. Patient's creatinine = 2.49 currently, likely will improve with diuresis with severe hypervolemia. - PT/OT consulted (2) Anasarca: -Checking hepatic panel -Continue diuresis as above -Will consult nephrology to assist with volume status and electrolytes, Dr. Villafuerte. -abdominal CT reviewed: 1. Severe body wall edema, bilateral pleural effusions, and a small amount of ascites. 2. Mild splenomegaly. 3. No definite bowel wall thickening or obstruction. 4. Cholecystectomy. 5. Calcified uterine fibroids. 6. Colonic diverticulosis. No evidence for diverticulitis. (3) Pacemaker: -Cardiology to determine if needs for pacemaker interrogation (4) Hypertension: Continue on carvedilol 3.125 mg p.o. HS, losartan 100 mg daily, aspirin 81 mg daily -Holding torsemide with IV diuresis as above (5) HLD (hyperlipidemia): -Continue pravastatin 20 mg HS (6) Sick sinus syndrome: -Status post pacemaker insertion. (7) Pancytopenia: -Follow a.m. labs, unknown cause of the underlying pancytopenia. Await records from outside hospital for more history. (8) Nausea & vomiting: (9) Diarrhea: - Possible GI virus? Monitor for increased signs of infection - FOllow BCx - C diff pending - No fluids with severe hypervolemia (10) DVT prophylaxis: -Teds, SCDs, Lovenox subcu History of Present Illness Primary Care Provider: NO PCP This is a 88 yo F with PMHx of HTN, HLD, CHF, baseline kidney disease, recent history of pneumonia. Discussion was held with her son over the phone as the patient is unable to provide adequate history. Pt was recently admitted to [facility] for about 6 weeks for possible cellulitis and pneumonia as well as CHF exacerbation. She was recently discharged from inpatient rehab on 10/27/18 and went to live with her son, Skyler in [place]. Prior to this admission at [facility] she was living at home by herself. Today the pt breathing worsened while sitting at rest, but had been progressively getting worse over the past ~3d. Patient is poorly compliant with fluid restriction guidelines and sodium restriction despite her excess of fluid and has chronically dry mouth. Patient's son notes she has had increased confusion as well with baseline difficulty with recall of events and lack of short term memory. She does use a walker at baseline. Does not require supplemental O2. Pt had increased nausea and vomiting, diarrhea which started last evening and called 911 this morning. Pts son and were home but report she did not remember that she was in her son's house, and thought that she was alone. Allergies Allergy/AdvReac Type Severity Reaction Status Date / Time celecoxib Allergy Intermediate . Unverified 10/31/18 10:50 estrogens, conjugated Allergy Intermediate . Unverified 10/31/18 10:50 levofloxacin Allergy Intermediate . Unverified 10/31/18 10:50 nitrofurantoin Allergy Intermediate . Unverified 10/31/18 10:50 quinidine Allergy Intermediate HEART Unverified 10/31/18 10:50 ALMOST STOPPED tetanus toxoid, adsorbed Allergy Intermediate HIVES Unverified 10/31/18 10:50 sulfisoxazole AdvReac Intermediate HEADACHE Unverified 10/31/18 10:50 Home Medications Home Medications Medication Instructions Recorded Confirmed Type acetaminophen 325 mg PO Q6H PRN 10/31/18 10/31/18 History aspirin 81 mg PO QAM 10/31/18 10/31/18 History bacitracin 1 applic TOPICAL DAILY PRN 10/31/18 10/31/18 History carvedilol [Coreg] 3.125 mg PO HS 10/31/18 10/31/18 History dextromethorphan-guaifenesin 10 ml PO Q4 PRN 10/31/18 10/31/18 History [Robitussin Cough-Chest Joseph DM] diphenhydramine HCl [Benadryl] 25 mg PO Q8 PRN 10/31/18 10/31/18 History iron ag,[id number] 1 tab PO BID 10/31/18 10/31/18 History [Niferex (Sumalate-Quatrefolic)] losartan [Cozaar] 100 mg PO QAM 10/31/18 10/31/18 History magnesium hydroxide [Milk of 30 ml PO DAILY PRN 10/31/18 10/31/18 History Magnesia] pantoprazole [Protonix] 40 mg PO QAM 10/31/18 10/31/18 History phenyleph-min oil-petrolatum 1 applic [place] BID PRN 10/31/18 10/31/18 History [Preparation H] potassium chloride [Klor-Con 10] 10 meq PO QAM 10/31/18 10/31/18 History pravastatin [Pravachol] 20 mg PO HS 10/31/18 10/31/18 History torsemide [Demadex] 20 mg PO BID 10/31/18 10/31/18 History Past Med/Surg History Medical History HTN (hypertension) (Chronic) Pacemaker (Chronic) Family History Other No pertinent family history Social History Current Living Situation: Family Other Information That Helps Us Care for You: No Feels Safe at Home: Yes Safety Concerns: Feels Safe At This Time Smoking Status: Never smoker Do You Dip or Chew Tobacco: No Second Hand Exposure: No Tobacco Cessation Education Requested by Patient: No Hx Alcohol Use: No Hx Substance Use: No Beliefs That Will Affect Care: None Preferred Language: Nepali Communication Ability: Effective Rehab Specialist Required: No Review of Systems Unobtainable due to cognitive status Physical Exam 2 Vital Signs (Past 24 Hours): Last Vital Signs Temp 36.6 C 10/31/18 09:16 Pulse 60 10/31/18 12:33 Resp 10 L 10/31/18 12:33 BP 122/77 10/31/18 12:33 Pulse Ox 96 10/31/18 12:33 Physical Exam: General: awake, alert, complaining of catheter, unable to provide history. Head: Normocephalic, atraumatic ENT: PERRL, EOMI, no pharyngeal exudate, mucous membranes dry Chest: + on 3L via NC, + crackles throughout, faint inspiratory wheeze Cardiac: Regular rate and rhythm, HR in 60s, faint murmur, 2+ JVD, normal peripheral pulses, good capillary refill, vertical chest scar and pacer in the L chest wall. Abdominal: + anasarca, NABS x 4 quadrants, +distended, nontender to light palpation, + grimace with deep palpation, no rebound, guarding or tenderness Extremities: +gross edema with 2+ pitting throughout BLE, no peripheral edema or erythema, calfs nontender to palpation Neuro: AA, oriented to self, not to date or place. speech is clear, + difficulty with recall of events, short-term memory Constitutional: WD/WN, vitals as above Eyes: normal visual mata by confrontation and + anicteric sclerae Neck: normal visual inspection and trachea midline Respiratory: normal respiratory effort Auscultation: + wheezes neg resp distress Cardiovascular: Rate/Rhythm: regular rate and regular rhythm Gastrointestinal (Abdomen): Inspection/Auscultation: abdomen not distended Percussion/Palpation: abdomen soft; abdomen nontender Musculoskeletal: Head/Neck/Chest: normocephalic and head atraumatic b/l LE edema, + pedal pulses Skin: no rashes, warm and dry Neurologic: awake and + confused (answers some questions but needs aroused frequently. Does not answer all questions) Speech / Cognition: normal speech Psychiatric: Orientation: alert and oriented to person Lymphatic: Exam as done by Mady Roy DO Results & Data Diagnostic Findings ABDOMEN AND PELVIS CT WITHOUT CONTRAST CT DOSE: 1093.70 mGy.cm HISTORY: Generalized abdominal pain. vomiting TECHNIQUE: Multiaxial CT images of the abdomen and pelvis were performed without contrast. A dose lowering technique was utilized adhering to the principles of ALARA. COMPARISON STUDY: None. FINDINGS: Moderate right and small left pleural effusions. Consolidation within the bilateral lower lobes posteriorly likely represent compressive atelectasis. The heart is mildly enlarged. Pacemaker wires are noted. Aortic valve prosthesis is noted. No pneumoperitoneum. No pneumatosis. No suspicious lytic or blastic osseous lesions. Severe body wall edema. Cholecystectomy. The unenhanced liver, adrenal glands, pancreas, and kidneys are unremarkable. No renal or ureteral stones. No hydronephrosis. The spleen is mildly enlarged measuring 13 cm in length. Calcified plaque throughout the normal caliber abdominal aorta. No significant retroperitoneal lymphadenopathy. Small amount of ascites is present. Calcifications within the uterus consistent with fibroids. The bladder is not well-distended but appears unremarkable. Suboptimal evaluation for bowel pathology due to the lack of intravenous and oral contrast. However, there is no definite bowel wall thickening or obstruction. Sigmoid diverticulosis. No evidence for diverticulitis. IMPRESSION: 1. Severe body wall edema, bilateral pleural effusions, and a small amount of ascites. 2. Mild splenomegaly. 3. No definite bowel wall thickening or obstruction. 4. Cholecystectomy. 5. Calcified uterine fibroids. 6. Colonic diverticulosis. No evidence for diverticulitis. XR chest 1V portable HISTORY: Sepsis COMPARISON: None. FINDINGS: No pneumothorax. There are small bilateral pleural effusions. The heart is mildly enlarged. Postoperative changes and a cardiac valve prosthesis are noted. Left-sided dual-chamber pacemaker. There is mild central pulmonary vascular congestion without overt edema. Old, healed right-sided rib fractures. Bibasilar densities favor atelectasis from the pleural effusions. Advanced degenerative changes within the right shoulder. IMPRESSION: 1. Cardiomegaly with mild central pulmonary vascular congestion. 2. Small bilateral pleural effusions. ECG Additional Comments: 31-OCT-2018 10:02:24 [facility] Poor data quality, interpretation may be adversely affected Atrial-paced rhythm with prolonged AV conduction Nonspecific ST and T wave abnormality Abnormal ECG No previous ECGs available Vent. rate 61 BPM GA interval 266 ms QRS duration 90 ms QT/QTc 442/444 ms P-R-T axes -[id number] 221 Code Status & VTE Plan Code Status DNR-discussed with son over the phone who is power of time study statistician. Supervising Physician Co-Signing Physician Notes Pt seen and examined by me. Denies chest pain or SOB. Her biggest concern is discomfort from li placement. States she has been eating. Family not present during my exam. Agree with HPI/ROS as noted by PA See above for my exam in PE section Agree with plan as outlined above LE swelling and anasarca--lasix Elevated cr CXR noted for pleural effusions Neg for infection on CXR, UA _ (1) CHF (congestive heart failure) Heart failure chronicity: unspecified Heart failure type: unspecified Qualified Code(s): I50.9 - Heart failure, unspecified
--- NOTE | 2018-10-31 17:04 | Communication Note ---
Date of Service: October 31, 2018 Patient new to the area. Brought to the ED today because of confusion, abdominal pain, fluid retention. She was thought to be an unassigned patient and was admitted by the [facility] Medicine team. It became apparent that she is establishing with Dr. Feliz ([facility]) for primary care. We will transfer the patient to the [facility] Medicine service and assume care. Son Skyler called and given update. Recently hospitalized at [facility] in [place] with CHF, pneumonia, cellulitis. Transferred to [facility] in [place] for skilled care, discharged last week. Now staying in [facility] with family. Skyler will sign release of information for [facility] and [facility] when he returns to the hospital.
[2018-10-31] MEDS ORDERED: ACETAMINOPHEN 325 MG TAB PO PRN (17:05)
[2018-10-31] MEDS ORDERED: ACETAMINOPHEN 325 MG TAB ONE (17:41)
[2018-10-31 17:45] LABS: Albumin Level 3.3 gm/dl (3.4-5.0); Bilirubin Direct 0.6 mg/dl (0-0.2); Bilirubin,Total 1.1 mg/dl (0.2-1); Total Protein 7.8 gm/dl (6.4-8.2); Troponin I 0.047 ng/ml (0-0.045)
[2018-10-31] MEDS ORDERED: PATIENT'S HEIGHT AND/OR WEIGHT NEEDED SCH (18:00)
[2018-10-31] MEDS: ENOXAPARIN INJ 30 MG/0.3 ML SYR SQ SCH ×2 (18:41→19:46)
[2018-10-31] MEDS: IRON POLYSACCHARIDE COMPLEX 150 MG CAPSULE PO SCH (19:47)
[2018-10-31] MEDS: CARVEDILOL 3.125 MG TAB PO SCH (19:47)
[2018-10-31] MEDS: PRAVASTATIN SOD 20 MG TAB PO SCH (19:48)
--- NOTE | 2018-10-31 20:00 | XRay Report ---
XR hip LT 2-3V w pelvis CLINICAL HISTORY: left hip pain COMPARISON: 04/26/2017 DISCUSSION: No acute fractures are visualized. There are no destructive lesions. There are mild degen erative changes. Pelvic basin calcifications likely related to calcified uterine fibroids. IMPRESSION: No significant change from the preceding 2017 study. Minor degenerative change. No acute fractures Electronically signed by: Remigio Liu M.D. 10/31/2018 7:58 PM
[2018-10-31] MEDS ORDERED: FUROSEMIDE 40 MG/4 ML VIAL IV SCH (21:00)
[2018-10-31] MEDS: FUROSEMIDE 60 MG in SYRINGE 0 ML IV SCH (21:22)
[2018-11-01] MEDS: HYDROmorphone INJ 0.5 MG/0.5 ML SYR IV PRN ×2 (05:49→23:10)
[2018-11-01 05:57] LABS: Hematocrit (blood only) 28.5 % (37-47); Hemoglobin 8.4 g/dL (12.0-16.0); Mean Corpuscular Hgb Conc 29.5 g/dL (32-36); Mean Corpuscular Volume 79.4 fL (80-100); Platelet Count 105 K/uL (130-400); RDW Coefficient of Variation 18.4 % (11.5-14.5); RDW Standard Deviation 53.9 fL (36.4-46.3); Red Blood Count 3.59 M/uL (4.2-5.4); White Blood Count 4.02 K/uL (4.8-10.8)
[2018-11-01 06:02] LABS: INR 1.3 (0.9-1.1); Prothrombin Time 12.5 Seconds (9.0-12.0)
[2018-11-01 06:29] LABS: Albumin Level 3.1 gm/dl (3.4-5.0); BUN Creatinine Ratio 19.7 (10-20); Calcium 8.2 mg/dl (8.5-10.1); Creatinine Clr Calc Pharmacy 14.6 ml/min; Est GFR (African American) 17.5; Est GFR (Non-African American) 15.1; Magnesium 2.7 mg/dl (1.8-2.4); Potassium 4.4 mmol/L (3.5-5.1)
[2018-11-01 06:31] LABS: Albumin Globulin Ratio 0.7 (0.9-2); Bilirubin,Total 0.9 mg/dl (0.2-1); Globulin 4.3 gm/dl (2.5-4.0); Phosphorus 5.5 mg/dl (2.5-4.9); Total Protein 7.4 gm/dl (6.4-8.2)
[2018-11-01] MEDS: FUROSEMIDE 60 MG in SYRINGE 0 ML IV SCH ×2 (08:23→17:24)
[2018-11-01] MEDS: PANTOprazole 40 MG TAB PO SCH (08:23)
[2018-11-01] MEDS: POTASSIUM CHLORIDE 10 MEQ TABCR PO SCH (08:23)
[2018-11-01] MEDS: ASPIRIN 81 MG ECTAB PO SCH (08:23)
[2018-11-01] MEDS: IRON POLYSACCHARIDE COMPLEX 150 MG CAPSULE PO SCH ×2 (08:24→21:57)
[2018-11-01] MEDS: BACITRACIN OINT 15 GM TUBE TOP PRN (08:24)
--- NOTE | 2018-11-01 08:46 | Nephrology Consultation ---
Date of Consultation November 01, 2018 Assessment & Plan (1) Renal insufficiency: baseline creatinine unknown; presenting creatinine 2.4, up to 2.7 today; chemistries acceptable; no obvious renal lesions on imaging, though UA suggestive of tubular damage. no information available in EPIC or scanned charts -hold cozaar while we get more info about baseline renal function -recommend HIM consult to get outside records from recent [facility] stay >> H&P, d/c summary; consults done. I would order but not sure where that facility is located; nursing efforts to locate this appreciated -bladder scan -- some concern for urinary retention after li removed at her request Present on Admission?: Yes (2) Anasarca: concern for liver dysfunction >> given low plts, anemia, mild elevation in INR; need to eval for other causes such as HF, nephrotic syndrome. no reported hx of liver dz; mild elevation in direct bilirubin noted -agree w/ lasix as currently ordered and FR 1.2L -added <2 gm daily Na diet -will eval for nephrotic syndrome -f/u cardiology recs -daily standing wts, I/O ordered Present on Admission?: Yes History of Present Illness Reason for Consultation: volume mgt Requesting Physician: Dr Roy Attending Physician: Ana Ulloa, DO History of Present Illness 88 y/o F whom I'm asked to evaluate for best mgt of anasarca and volume overload. PMH includes HTN, HF, CKD w/ unknown baseline, baseline cognitive impairment, recent 6 wk admission per report to OSH for cellulitis, HF, PNA, chronic ambulatory dysfunction/walker dependent. She had been d/c from inpt rehab to stay w/ her son who lives locally. Noted there to have 72 hrs of worsening sob, confusion, N/V. She takes full dose cozaar and 20 mg bid torsemide as OP. her presenting creatinine was 2.5, up to 2.7 today. UA w/ some renal epithelial cells. She was started on lasix 60 mg IV bid on presentation. At eval today on rounds 0900 she was obtunded/unable to answer questions or give ROS; had had some pain meds for L hip pain. No report of fall and hip Xray w/o frx. Cardiology following as well. Allergies Allergy/AdvReac Type Severity Reaction Status Date / Time celecoxib Allergy Intermediate . Unverified 10/31/18 10:50 estrogens, conjugated Allergy Intermediate . Unverified 10/31/18 10:50 levofloxacin Allergy Intermediate . Unverified 10/31/18 10:50 nitrofurantoin Allergy Intermediate . Unverified 10/31/18 10:50 quinidine Allergy Intermediate HEART Unverified 10/31/18 10:50 ALMOST STOPPED tetanus toxoid, adsorbed Allergy Intermediate HIVES Unverified 10/31/18 10:50 sulfisoxazole AdvReac Intermediate HEADACHE Unverified 10/31/18 10:50 Home Medications Home Medications Medication Instructions Recorded Confirmed Type acetaminophen 325 mg PO Q6H PRN 10/31/18 10/31/18 History aspirin 81 mg PO QAM 10/31/18 10/31/18 History bacitracin 1 applic TOPICAL DAILY PRN 10/31/18 10/31/18 History carvedilol [Coreg] 3.125 mg PO HS 10/31/18 10/31/18 History dextromethorphan-guaifenesin 10 ml PO Q4 PRN 10/31/18 10/31/18 History [Robitussin Cough-Chest Joseph DM] diphenhydramine HCl [Benadryl] 25 mg PO Q8 PRN 10/31/18 10/31/18 History iron ag,[id number] 1 tab PO BID 10/31/18 10/31/18 History [Niferex (Sumalate-Quatrefolic)] losartan [Cozaar] 100 mg PO QAM 10/31/18 10/31/18 History magnesium hydroxide [Milk of 30 ml PO DAILY PRN 10/31/18 10/31/18 History Magnesia] pantoprazole [Protonix] 40 mg PO QAM 10/31/18 10/31/18 History phenyleph-min oil-petrolatum 1 applic [place] BID PRN 10/31/18 10/31/18 History [Preparation H] potassium chloride [Klor-Con 10] 10 meq PO QAM 10/31/18 10/31/18 History pravastatin [Pravachol] 20 mg PO HS 10/31/18 10/31/18 History torsemide [Demadex] 20 mg PO BID 10/31/18 10/31/18 History Patient History Medical History HTN (hypertension) (Chronic) Surgical History Pacemaker (Chronic) Family History Other No pertinent family history Social History Current Living Situation: Family Other Information That Helps Us Care for You: No Feels Safe at Home: Yes Safety Concerns: Feels Safe At This Time Smoking Status: Never smoker Do You Dip or Chew Tobacco: No Second Hand Exposure: No Tobacco Cessation Education Requested by Patient: No Hx Alcohol Use: No Hx Substance Use: No Beliefs That Will Affect Care: None Communication Ability: Unable Review of Systems unable to obtain d/t clinical condition Physical Exam 2 Vital Signs (Past 24 Hours): Last Vital Signs Temp 36.7 C 11/01/18 08:06 Pulse 60 11/01/18 08:06 Resp 14 11/01/18 08:06 BP 130/60 11/01/18 08:06 Pulse Ox 97 11/01/18 08:06 Constitutional: well developed and well nourished lying flat on 02NC, slight belly breathing/ snoring and arouseable but can't participate in hx/ ros Eyes: EOM intact bilaterally ENMT: Ears: no external ear abnormality Nose: no external nose abnormality Mouth: + dry oral mucous membranes Neck: no nuchal rigidity Respiratory: normal respiratory effort and + paradoxical thoraco-abdominal movement; no respiratory distress and no labored breathing Auscultation: + diminished lung sounds Cardiovascular: Rate/Rhythm: regular rate and regular rhythm Extremities: no edema Gastrointestinal (Abdomen): Inspection/Auscultation: + abdomen distended and normal bowel sounds Percussion/Palpation: + guarding (some abd fullness); abdomen nontender +bs Musculoskeletal: Extremities: + muscle atrophy; no cyanosis and no petechiae Skin: + rash (? contact dermatitis base of R neck) Neurologic: + obtunded Psychiatric: Motor Behavior: no abnormal motor movements Genitourinary: no li Results & Data Laboratory Results Abnormal lab results 10/31/18 10/31/18 10/31/18 Range/Units 09:52 09:52 09:52 WBC 4.17 L (4.8-10.8) K/uL RBC 3.82 L (4.2-5.4) M/uL Hgb 9.1 L (12.0-16.0) g/dL Hct 29.8 L (37-47) % MCV 78.0 L (80-100) fL MCH 23.8 L (25-34) pg MCHC 30.5 L (32-36) g/dL RDW Std Deviation 53.3 H (36.4-46.3) fL RDW Coeff of Amos 18.6 H (11.5-14.5) % Plt Count 111 L (130-400) K/uL MPV 10.5 H (7.4-10.4) fL Lymph # (Auto) 0.37 L (1.2-3.4) K/uL [place] # (Auto) 0.82 H (0.11-0.59) K/uL ESR (0-21) mm/hr PT 12.5 H (9.0-12.0) Seconds INR 1.3 H (0.9-1.1) BUN 47 H (7-18) mg/dl Creatinine 2.49 H (0.6-1.2) mg/dl Glucose 113 H (70-99) mg/dl Calcium (8.5-10.1) mg/dl Phosphorus (2.5-4.9) mg/dl Magnesium (1.8-2.4) mg/dl Total Bilirubin 1.3 H (0.2-1) mg/dl Direct Bilirubin (0-0.2) mg/dl Troponin I 0.049 H* (0-0.045) ng/ml C-Reactive Protein 0.65 H (0-0.29) mg/dl Total Protein 8.3 H (6.4-8.2) gm/dl Albumin (3.4-5.0) gm/dl Globulin 4.9 H (2.5-4.0) gm/dl Albumin/Globulin Ratio 0.7 L (0.9-2) Urine Appearance (Clear) Urine Blood (Negative) Urine RBC (Auto) (0-4) /hpf U Epithel Cells (Auto) (0-5) /lpf Ur Renal Epithelial Cell (0-5) /lpf Amorphous Sediment (None Prsent) 10/31/18 10/31/18 10/31/18 Range/Units 09:52 11:30 16:33 WBC (4.8-10.8) K/uL RBC (4.2-5.4) M/uL Hgb (12.0-16.0) g/dL Hct (37-47) % MCV (80-100) fL MCH (25-34) pg MCHC (32-36) g/dL RDW Std Deviation (36.4-46.3) fL RDW Coeff of Amos (11.5-14.5) % Plt Count (130-400) K/uL MPV (7.4-10.4) fL Lymph # (Auto) (1.2-3.4) K/uL [place] # (Auto) (0.11-0.59) K/uL ESR 44 H (0-21) mm/hr PT (9.0-12.0) Seconds INR (0.9-1.1) BUN (7-18) mg/dl Creatinine (0.6-1.2) mg/dl Glucose (70-99) mg/dl Calcium (8.5-10.1) mg/dl Phosphorus (2.5-4.9) mg/dl Magnesium (1.8-2.4) mg/dl Total Bilirubin 1.1 H (0.2-1) mg/dl Direct Bilirubin 0.6 H (0-0.2) mg/dl Troponin I 0.047 H* (0-0.045) ng/ml C-Reactive Protein (0-0.29) mg/dl Total Protein (6.4-8.2) gm/dl Albumin 3.3 L (3.4-5.0) gm/dl Globulin (2.5-4.0) gm/dl Albumin/Globulin Ratio (0.9-2) Urine Appearance Turbid H (Clear) Urine Blood 2+ H (Negative) Urine RBC (Auto) 5-10 H (0-4) /hpf U Epithel Cells (Auto) >30 H (0-5) /lpf Ur Renal Epithelial Cell 5-10 H (0-5) /lpf Amorphous Sediment Present H (None Prsent) 11/01/18 11/01/18 11/01/18 Range/Units 05:48 05:48 05:48 WBC 4.02 L (4.8-10.8) K/uL RBC 3.59 L (4.2-5.4) M/uL Hgb 8.4 L (12.0-16.0) g/dL Hct 28.5 L (37-47) % MCV 79.4 L (80-100) fL MCH 23.4 L (25-34) pg MCHC 29.5 L (32-36) g/dL RDW Std Deviation 53.9 H (36.4-46.3) fL RDW Coeff of Amos 18.4 H (11.5-14.5) % Plt Count 105 L (130-400) K/uL MPV (7.4-10.4) fL Lymph # (Auto) (1.2-3.4) K/uL [place] # (Auto) (0.11-0.59) K/uL ESR (0-21) mm/hr PT 12.5 H (9.0-12.0) Seconds INR 1.3 H (0.9-1.1) BUN 53 H (7-18) mg/dl Creatinine 2.69 H (0.6-1.2) mg/dl Glucose 113 H (70-99) mg/dl Calcium 8.2 L (8.5-10.1) mg/dl Phosphorus 5.5 H (2.5-4.9) mg/dl Magnesium 2.7 H (1.8-2.4) mg/dl Total Bilirubin (0.2-1) mg/dl Direct Bilirubin (0-0.2) mg/dl Troponin I (0-0.045) ng/ml C-Reactive Protein (0-0.29) mg/dl Total Protein (6.4-8.2) gm/dl Albumin 3.1 L (3.4-5.0) gm/dl Globulin 4.3 H (2.5-4.0) gm/dl Albumin/Globulin Ratio 0.7 L (0.9-2) Urine Appearance (Clear) Urine Blood (Negative) Urine RBC (Auto) (0-4) /hpf U Epithel Cells (Auto) (0-5) /lpf Ur Renal Epithelial Cell (0-5) /lpf Amorphous Sediment (None Prsent) Diagnostic Findings CT abd/pelvis noncon HISTORY: Generalized abdominal pain. vomiting COMPARISON STUDY: None. FINDINGS: Moderate right and small left pleural effusions. Consolidation within the bilateral lower lobes posteriorly likely represent compressive atelectasis. The heart is mildly enlarged. Pacemaker wires are noted. Aortic valve prosthesis is noted. No pneumoperitoneum. No pneumatosis. No suspicious lytic or blastic osseous lesions. Severe body wall edema. Cholecystectomy. The unenhanced liver, adrenal glands, pancreas, and kidneys are unremarkable. No renal or ureteral stones. No hydronephrosis. The spleen is mildly enlarged measuring 13 cm in length. Calcified plaque throughout the normal caliber abdominal aorta. No significant retroperitoneal lymphadenopathy. Small amount of ascites is present. Calcifications within the uterus consistent with fibroids. The bladder is not well-distended but appears unremarkable. Suboptimal evaluation for bowel pathology due to the lack of intravenous and oral contrast. However, there is no definite bowel wall thickening or obstruction. Sigmoid diverticulosis. No evidence for diverticulitis. IMPRESSION: 1. Severe body wall edema, bilateral pleural effusions, and a small amount of ascites. 2. Mild splenomegaly. 3. No definite bowel wall thickening or obstruction. 4. Cholecystectomy. 5. Calcified uterine fibroids. 6. Colonic diverticulosis. No evidence for diverticulitis. cxr 1. Cardiomegaly with mild central pulmonary vascular congestion. 2. Small bilateral pleural effusions.
[2018-11-01] MEDS ORDERED: LOSARTAN POTASSIUM 50 MG TAB PO SCH (09:00)
--- NOTE | 2018-11-01 10:49 | Hospitalist Progress Note ---
Date of Service November 01, 2018 Assessment & Plan (1) CHF (congestive heart failure): The patient examined as fluid overload, however, appears intravascularly dry with low urine output that is concentrated appearing. Despite no urine output despite minimal urine output overnight, she has 100 cc of urine on bladder scan this morning. Echocardiogram revealed severe RV dysfunction. Appreciate cardiology and nephrology input continue Lasix IV for now. Low-salt diet and fluid restriction per nephrology. Still awaiting records from outside hospital where she was recently admitted. (2) Renal insufficiency: Uncertain baseline. Continue management per nephrology. (3) Anasarca: Plan as above. (4) Diarrhea: Uncertain if this is improved as patient is somnolent. (5) Nausea & vomiting: Uncertain if this is improved as patient is somnolent (6) Left hip pain: Severe left hip pain on arrival and throughout the night. Patient was given 0.25 mg of IV Dilaudid this morning and is extremely somnolent. Left hip x-ray yesterday revealed degenerative changes of the joint but no acute fracture. Will reassess further once patient is more awake. She may benefit from scheduled Tylenol to stay ahead of pain but would want her to wake up more and discuss this plan with her prior to starting. (7) Pacemaker: Defer to cardiology for pacemaker interrogation. (8) DVT prophylaxis: Switch Lovenox to heparin in setting of renal insufficiency. DO NOT RESUSCITATE Ana Ulloa DO [facility] hospitalist Subjective 88-year-old female presented to the ER with abdominal pain in conjunction with nausea, vomiting, diarrhea. The vomiting began that same day. No fever was reported. The patient was recently admitted to an outside hospital for cellulitis, pneumonia, CHF exacerbation. She was discharged from an inpatient rehab on 27 October and went to live with her son. She was living alone prior to this. On arrival to the ER she was hemodynamically stable and afebrile and oxygenating 88% on room air. She was administered nasal cannula with improvement in oxygen saturation to the high 90s. Clinically she was felt to be volume overloaded likely secondary to CHF. Anasarca was present on exam. Creatinine was elevated with no baseline renal function. She was given 40 mg of IV Lasix in the ER. A Meade is not present, and she was recorded to have approximately 450 cc output in response. An echo reveals severe right ventricular dysfunction and moderate TR with an EF of 55%. This morning she was administered approximately 0.25 mg of IV Dilaudid, and currently is very somnolent. She is unable to answer questions. Physical Exam 2 Vital Signs (Past 24 Hours): Last Vital Signs Temp 36.7 C 11/01/18 08:06 Pulse 60 11/01/18 08:06 Resp 14 11/01/18 08:06 BP 130/60 11/01/18 08:06 Pulse Ox 97 11/01/18 08:06 CONSTITUTIONAL: WNWD, vitals as above, somnolent EYES: PERRL, normal conjuctivae, no scleral icterus ENT: MMM NECK: non-vesicular erythematous papular rash that is scattered on the R neck/ shoulder. There is a well-healed punctum site where a prior R IJ was present. RESPIRATORY: clear to auscultation bilaterally, no crackles, rales or wheezes, normal respiratory effort CARDIOVASCULAR: regular rate and rhythm, S1 and 2 heard without murmurs, gallops or rubs, 3+ pitting edema up to and involving abdomen. GASTROINTESTINAL: normal bowel sounds, soft, nondistended, 3+ pitting edema MUSCULOSKELETAL: unable to examine as patient is somnolent. SKIN: warm and dry, rash as above. NEUROLOGIC: unable to examine 2/2 somnolence. Results & Data Laboratory Results Short CBC 11/01/18 Range/Units 05:48 WBC 4.02 L (4.8-10.8) K/uL Hgb 8.4 L (12.0-16.0) g/dL Hct 28.5 L (37-47) % Plt Count 105 L (130-400) K/uL BMP 11/01/18 05:48 Sodium 136 Potassium 4.4 Chloride 104 Carbon Dioxide 27 BUN 53 H Creatinine 2.69 H Glucose 113 H Calcium 8.2 L Cardiac Enzymes 10/31/18 11/01/18 Range/Units 16:33 00:22 Troponin I 0.047 H* 0.037 (0-0.045) ng/ml Liver Function 10/31/18 11/01/18 Range/Units 16:33 05:48 Total Bilirubin 1.1 H 0.9 (0.2-1) mg/dl Direct Bilirubin 0.6 H (0-0.2) mg/dl AST 21 20 (15-37) U/L ALT 16 15 (12-78) U/L Alkaline Phosphatase 73 68 (45-117) U/L Albumin 3.3 L 3.1 L (3.4-5.0) gm/dl Urine 10/31/18 Range/Units 11:30 Urine Color Yellow Urine Appearance Turbid H (Clear) Urine pH 5.0 (4.5-7.5) Ur Specific [place] 1.016 (1.000-1.030) Urine Protein Negative (Negative) Urine Glucose (UA) Negative (Negative) Medications Administered Current Inpatient Medications Acetaminophen (Tylenol) 325 mg PO Q6H PRN PRN Reason: Pain Stop: 11/30/18 17:04 Last Admin: 10/31/18 17:50 Dose: 325 mg Aspirin (Ecotrin Ectab) 81 mg PO QAM [facility] Stop: 12/01/18 08:59 Last Admin: 11/01/18 08:23 Dose: 81 mg Bacitracin (Bacitracin) 1 appln TOP DAILY PRN PRN Reason: REMOVAL OF PICC Stop: 11/30/18 17:04 Last Admin: 11/01/18 08:24 Dose: 1 appln Carvedilol (Coreg) 3.125 mg PO HS [facility], [facility]1983 Stop: 11/30/18 20:59 Last Admin: 10/31/18 19:47 Dose: 3.125 mg Diphenhydramine HCl (Benadryl) 25 mg PO Q8 PRN PRN Reason: Itching Stop: 11/30/18 17:04 Guaifenesin/Dextromethorphan (Robitussin Cough-Chest Dm) 10 ml PO Q4 PRN PRN Reason: Cough Stop: 11/30/18 17:04 Heparin Sodium (Porcine) (Heparin Sodium (Porcine)) 5,000 units SQ Q8 ROSALINE Stop: 12/01/18 13:59 Hydromorphone HCl (Dilaudid) 0.25 mg IV Q2H PRN PRN Reason: Severe Pain Stop: 11/14/18 18:31 Last Admin: 11/01/18 05:49 Dose: 0.25 mg Furosemide 60 mg/ Syringe 6 mls @ 4 mls/min IV [id number] ROSALINE Stop: 11/30/18 20:59 Last Admin: 11/01/18 08:23 Dose: 4 mls/min Magnesium Hydroxide (Milk Of Magnesia) 30 ml PO DAILY PRN PRN Reason: Constipation Stop: 11/30/18 17:04 Miscellaneous (Order Awaiting Action) 1 ea N/A QS [facility] Stop: 12/01/18 00:00 Last Admin: 11/01/18 08:22 Dose: Not Given Ondansetron HCl (Zofran) 4 mg IV Q6H PRN PRN Reason: Nausea Stop: 11/30/18 23:17 Pantoprazole Sodium (Protonix) 40 mg PO QAM [facility] Stop: 12/01/18 08:59 Last Admin: 11/01/18 08:23 Dose: 40 mg Polysaccharide Iron Complex (Niferex-150 W/Vit C Cap) 150 mg PO BID [facility] Stop: 11/30/18 20:59 Last Admin: 11/01/18 08:24 Dose: 150 mg Potassium Chloride (Klor-Con M10) 10 meq PO QAM [facility] Stop: 12/01/18 08:59 Last Admin: 11/01/18 08:23 Dose: 10 meq Pravastatin Sodium (Pravachol) 20 mg PO HS [facility] Stop: 11/30/18 20:59 Last Admin: 10/31/18 19:48 Dose: 20 mg _ (1) CHF (congestive heart failure) Heart failure chronicity: unspecified Heart failure type: unspecified Qualified Code(s): I50.9 - Heart failure, unspecified
--- NOTE | 2018-11-01 11:47 | Cardiology Consultation ---
Date of Consultation November 01, 2018 Assessment & Plan (1) Acute on chronic right heart failure: (2) Renal insufficiency: (3) Pacemaker: On telemetry, sinus rhythm with atrial pacing is present. As noted above, she does have a midline sternotomy incision which is well-healed , and although I do not make mention of this on her echocardiogram report, question if she has had a history of aortic valve replacement perhaps with a stentless bioprosthetic aortic valve as there appears to be postoperative changes noted on the limited visualization of the heart on the noncontrast CT of the abdomen and pelvis. Based on her medication list, would speculate that volume overload has been an issue because she has been on torsemide 20 mg twice daily. Not sure what her baseline renal function is, but as noted by other providers, record release has been performed. I believe that institution may have Epic and therefore may be able to link our outpatient records with [facility] once appropriate consent form filled out in the meantime, fax reports have been requested. Patient apparently recently received Dilaudid for ongoing abdominal discomfort this would explain her somnolence. She received 40 mg of IV furosemide on arrival to the emergency room yesterday, and is currently on furosemide 60 mg IV twice daily. Agree with transitioning her DVT prophylaxis to subcutaneous heparin instead of Lovenox given renal insufficiency. Nephrology input is noted and appreciated. 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 We need to cautiously monitor her electrolytes given renal insufficiency. She apparently had lived independently prior to her recent hospitalization earlier this month, but I am still uncertain of what her baseline level of disability is. We will attempt to determine what kind of pacemaker she has when her records arrive. History of Present Illness Attending Physician: Ana Ulloa DO History of Present Illness Jamaal Gray is an 88 year old female seen in cardiology consultation per the request of Dr. Delgadillo and Dr. Ulloa of the [facility] hospitalist group for the evaluation of right heart failure. The patient has received her past care at [facility] where she was apparently admitted approximately 6 weeks ago for cellulitis, pneumonia, and CHF. She was subsequently discharged from inpatient rehabilitation on 10/27/18, and has since been living in [place] with her son. Records are not available at present, and the patient is somnolent and unable to provide history. The admitting team had apparently reached out to the patient's son, Skyler, but he was unable to provide much in the way of details of her past history and recent events. Apparently yesterday patient had increased nausea, vomiting, last evening prompting transfer from home to the emergency department at [facility] by EMS. She has since been found to have marketed volume overload with significant lower extremity edema, ascites, and moderate to large bilateral pleural effusions. Significant renal insufficiency is present with presenting creatinine of 2.49 which is trended up to 2.69 today. Her calculated GFR is in the range of 15-16 mL/min/m. PMH: -Unobtainable at present, however, she does have a midline sternotomy on exam, and based on her EKG, chest x-ray, and CT findings she has a dual-chamber pacemaker (ui architect unknown), and I would speculate that she has had a bioprosthetic aortic valve replacement with a stentless bioprosthesis based on her CT. Allergies Allergy/AdvReac Type Severity Reaction Status Date / Time celecoxib Allergy Intermediate . Unverified 10/31/18 10:50 estrogens, conjugated Allergy Intermediate . Unverified 10/31/18 10:50 levofloxacin Allergy Intermediate . Unverified 10/31/18 10:50 nitrofurantoin Allergy Intermediate . Unverified 10/31/18 10:50 quinidine Allergy Intermediate HEART Unverified 10/31/18 10:50 ALMOST STOPPED tetanus toxoid, adsorbed Allergy Intermediate HIVES Unverified 10/31/18 10:50 sulfisoxazole AdvReac Intermediate HEADACHE Unverified 10/31/18 10:50 Home Medications Home Medications Medication Instructions Recorded Confirmed Type acetaminophen 325 mg PO Q6H PRN 10/31/18 10/31/18 History aspirin 81 mg PO QAM 10/31/18 10/31/18 History bacitracin 1 applic TOPICAL DAILY PRN 10/31/18 10/31/18 History carvedilol [Coreg] 3.125 mg PO HS 10/31/18 10/31/18 History dextromethorphan-guaifenesin 10 ml PO Q4 PRN 10/31/18 10/31/18 History [Robitussin Cough-Chest Joseph DM] diphenhydramine HCl [Benadryl] 25 mg PO Q8 PRN 10/31/18 10/31/18 History iron [id number] 1 tab PO BID 10/31/18 10/31/18 History [Niferex (Sumalate-Quatrefolic)] losartan [Cozaar] 100 mg PO QAM 10/31/18 10/31/18 History magnesium hydroxide [Milk of 30 ml PO DAILY PRN 10/31/18 10/31/18 History Magnesia] pantoprazole [Protonix] 40 mg PO QAM 10/31/18 10/31/18 History phenyleph-min oil-petrolatum 1 applic HI BID PRN 10/31/18 10/31/18 History [Preparation H] potassium chloride [Klor-Con 10] 10 meq PO QAM 10/31/18 10/31/18 History pravastatin [Pravachol] 20 mg PO HS 10/31/18 10/31/18 History torsemide [Demadex] 20 mg PO BID 10/31/18 10/31/18 History Patient History Medical History HTN (hypertension) (Chronic) Pacemaker (Chronic) Family History Other No pertinent family history Social History Current Living Situation: Family Other Information That Helps Us Care for You: No Feels Safe at Home: Yes Safety Concerns: Feels Safe At This Time Smoking Status: Never smoker Do You Dip or Chew Tobacco: No Second Hand Exposure: No Tobacco Cessation Education Requested by Patient: No Hx Alcohol Use: No Hx Substance Use: No Beliefs That Will Affect Care: None Preferred Language: Romanian Communication Ability: Effective Civil Transportation Engineer Required: No Review of Systems Unobtainable due to current somnolence Physical Exam 2 Vital Signs (Past 24 Hours): Last Vital Signs Temp 36.7 C 11/01/18 08:06 Pulse 60 11/01/18 08:06 Resp 14 11/01/18 08:06 BP 130/60 11/01/18 08:06 Pulse Ox 97 11/01/18 08:06 Constitutional: + ill appearing Respiratory: Decreased breath sounds bilaterally at the bases Cardiovascular: Rate/Rhythm: regular rhythm Heart Sounds: + murmur (1/6 systolic murmur) Extremities: + edema (2+ lower extremity edema to the thighs /waist, abdomen findings consistent with fluid retention) Gastrointestinal (Abdomen): Percussion/Palpation: + abdomen tender (Mildly tender on palpation) and + ascites Results & Data Laboratory Results Mild troponin elevation of 0.049 and 0.047 NG per mL x2, the third measurement performed this morning was normal at 0.037. EKG performed 10/31/18 revealed sinus rhythm with atrial pacing nonspecific diffuse T wave flattening. Echocardiogram performed today and reviewed independently by the undersigned Moderate concentric left ventricular hypertrophy is present, abnormal septal motion is present consistent with pressure/volume overload, the remaining left ventricular segments are normal. The qualitative left ventricular ejection fraction equals 55%. The right ventricle is not well visualized, however severe right ventricular chamber dilatation and severe right ventricular systolic dysfunction appears present on limited visualization. Mild mitral regurgitation is present Moderate tricuspid regurgitation is present. At least mild pulmonary hypertension is present with Of the pulmonary artery systolic pressure 45 mmHg Large bilateral pleural effusions noted on echocardiogram
--- NOTE | 2018-11-01 13:35 | XRay Report ---
XR chest 1V portable CLINICAL HISTORY: persistent hypoxia/wheezing, track changes dyspnea COMPARISON STUDY: 10/31/2018 FINDINGS: Mild cardiomegaly. Small bilateral pleural effusions unchanged. Prominent pulmonary vascula ture. Bipolar cardiac pacemaker in good position. IMPRESSION: Mild congestive heart failure. No change from the prior study. The above report was generated using voice recognition software. It may contain grammatical, syntax or spelling errors. Electronically signed by: Stefano Avendano M.D. 11/01/2018 1:33 PM
[2018-11-01] MEDS: HEPARIN SOD 5,000 UNIT/0.5 ML VIAL SQ SCH ×2 (14:20→21:57)
[2018-11-01] MEDS: PRAVASTATIN SOD 20 MG TAB PO SCH (21:56)
[2018-11-01] MEDS: CARVEDILOL 3.125 MG TAB PO SCH (21:57)
[2018-11-02 05:56] LABS: Hematocrit (blood only) 27.2 % (37-47); Hemoglobin 8.1 g/dL (12.0-16.0); Mean Corpuscular Hgb Conc 29.8 g/dL (32-36); Mean Corpuscular Volume 78.6 fL (80-100); Platelet Count 108 K/uL (130-400); RDW Coefficient of Variation 18.5 % (11.5-14.5); RDW Standard Deviation 53.6 fL (36.4-46.3); Red Blood Count 3.46 M/uL (4.2-5.4); White Blood Count 4.29 K/uL (4.8-10.8)
[2018-11-02] MEDS: HEPARIN SOD 5,000 UNIT/0.5 ML VIAL SQ SCH ×3 (06:23→21:35)
[2018-11-02 06:36] LABS: Albumin Level 2.9 gm/dl (3.4-5.0); BUN Creatinine Ratio 18.8 (10-20); Creatinine Clr Calc Pharmacy 11.4 ml/min; Est GFR (Non-African American) 11.2; Potassium 4.9 mmol/L (3.5-5.1)
[2018-11-02 06:39] LABS: Albumin Globulin Ratio 0.7 (0.9-2); Bilirubin,Total 0.8 mg/dl (0.2-1); Globulin 3.9 gm/dl (2.5-4.0); Total Protein 6.8 gm/dl (6.4-8.2)
--- NOTE | 2018-11-02 07:30 | Nephrology Progress Note ---
Date of Service November 02, 2018 Assessment & Plan (1) Renal insufficiency: baseline creatinine unknown; presenting creatinine 2.4, up to 2.7 then 3.4 today; oliguric. chemistries acceptable; no obvious renal lesions on imaging, though UA suggestive of tubular damage. no information available in EPIC or scanned charts -hold cozaar while we get more info about baseline renal function -there is a stat HIM consult to get outside records from recent [facility] stay > > H&P, d/c summary; consults done. no documents yet; have asked floor team to f /u on this -no indication for dialysis at this time; she is a poor candidate should the need arise -given how fast her renal function is worsening, ordered repeat bmp 1500 >> up to 3.6 now WORRISOME for her overall prx; alerted Dr Ulloa who is assessing pt, discussing goals of care w/ son (2) Anasarca: likeliest cause is R HF; concern though for liver dysfunction (again likeliest congestive hepatopathy) >> given low plts, anemia/pancytopenia, mild elevation in INR; need to eval for other causes such as nephrotic syndrome. -w/ worsening renal function, lowered lasix to 30 mg and increased frequency to qid iv -cont FR 1.2L and <2 gm daily Na diet -will eval for nephrotic syndrome --waiting on prot/creat ratio which is 400 mg daily -f/u cardiology recs -daily standing wts, I/O ordered Subjective seen on rounds this am. has sitter. once again obtunded -- only time I get any reaction from pt is rolling her slightly to listen to lungs -- at which poin tshe screams in pain; states from back. oliguric. no other ROS; takint minimal PO Physical Exam 2 Vital Signs (Past 24 Hours): Last Vital Signs Temp 36.8 C 11/02/18 06:58 Pulse 68 11/02/18 06:58 Resp 14 11/02/18 06:58 BP 113/46 L 11/02/18 06:58 Pulse Ox 96 11/02/18 06:58 Constitutional: well developed and well nourished obtunded; responds to noxious stimuli only, on 02nc ENMT: Ears: no external ear abnormality Nose: no external nose abnormality Mouth: + dry oral mucous membranes Neck: no nuchal rigidity Respiratory: + labored breathing and + paradoxical thoraco-abdominal movement ; no respiratory distress Auscultation: + diminished lung sounds, + rhonchi and + wheezes Cardiovascular: Rate/Rhythm: regular rate and regular rhythm anasarca Gastrointestinal (Abdomen): Inspection/Auscultation: + abdomen distended and normal bowel sounds Percussion/Palpation: abdomen nontender Musculoskeletal: Extremities: + muscle atrophy; no cyanosis and no petechiae Skin: + rash (? contact dermatitis base of R neck) Neurologic: + obtunded Psychiatric: Motor Behavior: no abnormal motor movements Genitourinary: li w/ scant urine Results & Data Laboratory Results Abnormal lab results 11/02/18 11/02/18 Range/Units 05:42 05:42 WBC 4.29 L (4.8-10.8) K/uL RBC 3.46 L (4.2-5.4) M/uL Hgb 8.1 L (12.0-16.0) g/dL Hct 27.2 L (37-47) % MCV 78.6 L (80-100) fL MCH 23.4 L (25-34) pg MCHC 29.8 L (32-36) g/dL RDW Std Deviation 53.6 H (36.4-46.3) fL RDW Coeff of Amos 18.5 H (11.5-14.5) % Plt Count 108 L (130-400) K/uL Sodium 135 L (136-145) mmol/L BUN 64 H (7-18) mg/dl Creatinine 3.43 H D (0.6-1.2) mg/dl Calcium 8.0 L (8.5-10.1) mg/dl Albumin 2.9 L (3.4-5.0) gm/dl Albumin/Globulin Ratio 0.7 L (0.9-2) Diagnostic Findings TTE mod CLVH; EF 55%; suboptimal study but strong suggestions of poor RV systolic function
[2018-11-02] MEDS: POTASSIUM CHLORIDE 10 MEQ TABCR PO SCH (08:55)
[2018-11-02] MEDS: FUROSEMIDE 30 MG in SYRINGE 0 ML IV SCH ×4 (08:55→20:49)
[2018-11-02] MEDS: PANTOprazole 40 MG TAB PO SCH (08:55)
[2018-11-02] MEDS: IRON POLYSACCHARIDE COMPLEX 150 MG CAPSULE PO SCH ×2 (08:55→20:51)
[2018-11-02] MEDS: ASPIRIN 81 MG ECTAB PO SCH (08:55)
--- NOTE | 2018-11-02 09:01 | Hospitalist Progress Note ---
Date of Service November 02, 2018 Assessment & Plan (1) CHF (congestive heart failure): Acute right heart failure. I discussed the options of continued diuresis versus he assist with both the patient and her son, Skyler. They need to discuss the decision together later this morning, however, Skyler is leaning towards continuing diuresis without hemodialysis at this point. He was made aware of the ramifications of this including the fact that her kidneys are not responding and she may not make it very much longer without dialysis support. He verbalized understanding of this and understands the aggressive nature of hemodialysis in this 88-year-old fragile female. Will await decision by the patient and her family and will proceed with diuresis per Dr. Ortiz's change Lasix schedule today. Repeat BMP in a.m. Wheezing present on exam likely secondary to vascular congestion, however, will offer duo nebs to see if this may improve her breathing. Continue supportive oxygen. Continue carvedilol, holding losartan in setting of renal failure, held potassium supplementation as level is 4.9 this morning. As an aside, we are still awaiting records from [facility]. The equal opportunity specialist is actively engaging staff at medical records there to obtain these records today. (2) Renal insufficiency: Acute on chronic renal failure, CKD stage III last checked 2017. Awaiting records as above. Options for continued diuresis versus hemodialysis presented to patient as above. Awaiting patient and family decision on this. Continue diuresis and setting of significant volume overload. Holding Cozaar. (3) Anasarca: Plan as above. Not much improved today. DILIP hose applied (4) Diarrhea: Resolved, normal stool yesterday. (5) Nausea & vomiting: Resolved, patient is tolerating p.o. However, she is not eating much at this point and has significant right upper quadrant and epigastric tenderness. This may be secondary to body wall edema, however, will obtain a lipase to rule out acute pancreatitis. CT of the abdomen and pelvis on admission with no evidence of bowel obstruction or thickening and there was no evidence of infection present. Scheduled Tylenol to take the edge off and reduce the need for narcotic medication. (6) Left hip pain: appears to be intermittent which is consistent with son's report (7) Pacemaker: (8) Contact dermatitis: Rash on R shoulder has improved significantly without treatment. It is nonvesicular and more consistent with a contact dermatitis secondary to an adhesive dressing applied during her recent hospital stay around a R IJ central catheter. Zoster not favored, and isolation precautions were removed. (9) DVT prophylaxis: Heparin DO NOT RESUSCITATE Ana Ulloa DO [facility] Hospitalist Subjective 88-year-old female with severe acute right heart failure and worsening kidney function despite diuretic therapy. She reports her breathing is somewhat improved today. She reports abdominal pain that she feels is about the same as last hospitalization with not much change. She cannot identify if this pain is more superficial consistent with body wall edema versus a deeper more internal pain but reports she has pain in her vaginal area as well as the right upper quadrant. She earlier reported back pain to another provider but denies this now. She had been placed on a one-to-one observation overnight for some intermittent delirium. She appears to be more clear this morning is answering questions appropriately. I discussed the options moving forward regarding continued diuresis versus hemodialysis and she prefers to talk to her children first before making decision. She understands that if she was to go on hemodialysis she would need to be a full code and okay with that. She has not vomited, but is eating very little. She reports a rash on her neck is itchy but is not burning or painful. Overnight she was given Dilaudid IV again and did very well with it without becoming somnolent as she was yesterday morning. Physical Exam 2 Vital Signs (Past 24 Hours): Last Vital Signs Temp 36.8 C 11/02/18 06:58 Pulse 68 11/02/18 06:58 Resp 14 11/02/18 06:58 BP 113/46 L 11/02/18 06:58 Pulse Ox 96 11/02/18 06:58 CONSTITUTIONAL: WNWD, vitals as above, somnolent EYES: normal conjuctivae, no scleral icterus, pupils are equal and round ENT: MMM NECK: non-vesicular erythematous papular rash that is scattered on the R neck/ shoulder which is improved today. There is a well-healed punctum site where a prior R IJ was present. RESPIRATORY: significant wheezing throughout all lung mata with occasional rales-appears improved today. (Of note yesterday's documentation was inaccurate. 11/01: lungs were not assessed initially 2/2 somnolence. Later when she was more awake, significant wheezing throughout lungs was noted.) CARDIOVASCULAR: regular rate and rhythm, S1 and 2 heard without murmurs, gallops or rubs, 3+ pitting edema of bilateral lower extremities up to and involving abdomen. GASTROINTESTINAL: normal bowel sounds, soft, nondistended, 3+ pitting edema MUSCULOSKELETAL: generalized weakness. SKIN: warm and dry, rash as above. NEUROLOGIC: alert and oriented, except to what day it is. She answers all questions appropriately. She is able to recall events that lead to the hospitalization. CN 2-12 grossly intact. Results & Data Laboratory Results Short CBC 11/02/18 Range/Units 05:42 WBC 4.29 L (4.8-10.8) K/uL Hgb 8.1 L (12.0-16.0) g/dL Hct 27.2 L (37-47) % Plt Count 108 L (130-400) K/uL BMP 11/02/18 05:42 Sodium 135 L Potassium 4.9 Chloride 104 Carbon Dioxide 25 BUN 64 H Creatinine 3.43 H D Glucose 82 Calcium 8.0 L Liver Function 11/02/18 Range/Units 05:42 Total Bilirubin 0.8 (0.2-1) mg/dl AST 17 (15-37) U/L ALT 14 (12-78) U/L Alkaline Phosphatase 57 (45-117) U/L Albumin 2.9 L (3.4-5.0) gm/dl Medications Administered Current Inpatient Medications Acetaminophen (Tylenol) 1,000 mg PO Q8H [facility] Stop: 12/02/18 08:59 Albuterol (Duoneb) 3 ml NEB QIDR [facility] Stop: 12/02/18 11:59 Aspirin (Ecotrin Ectab) 81 mg PO QAM [facility] Stop: 12/01/18 08:59 Last Admin: 11/02/18 08:55 Dose: 81 mg Bacitracin (Bacitracin) 1 appln TOP DAILY PRN PRN Reason: REMOVAL OF PICC Stop: 11/30/18 17:04 Last Admin: 11/01/18 08:24 Dose: 1 appln Carvedilol (Coreg) 3.125 mg PO HS [facility] Stop: 11/30/18 20:59 Last Admin: 11/01/18 21:57 Dose: 3.125 mg Guaifenesin/Dextromethorphan (Robitussin Cough-Chest Dm) 10 ml PO Q4 PRN PRN Reason: Cough Stop: 11/30/18 17:04 Heparin Sodium (Porcine) (Heparin Sodium (Porcine)) 5,000 units SQ Q8 [facility] Stop: 12/01/18 13:59 Last Admin: 11/02/18 06:23 Dose: 5,000 units Hydromorphone HCl (Dilaudid) 0.25 mg IV Q2H PRN PRN Reason: Severe Pain Stop: 11/14/18 18:31 Last Admin: 11/01/18 23:10 Dose: 0.25 mg Furosemide 30 mg/ Syringe 3 mls @ 4 mls/min IV QID [facility] Stop: 12/02/18 07:59 Last Admin: 11/02/18 08:55 Dose: 4 mls/min Magnesium Hydroxide (Milk Of Magnesia) 30 ml PO DAILY PRN PRN Reason: Constipation Stop: 11/30/18 17:04 Ondansetron HCl (Zofran) 4 mg IV Q6H PRN PRN Reason: Nausea Stop: 11/30/18 23:17 Pantoprazole Sodium (Protonix) 40 mg PO QAM [facility] Stop: 12/01/18 08:59 Last Admin: 11/02/18 08:55 Dose: 40 mg Polysaccharide Iron Complex (Niferex-150 W/Vit C Cap) 150 mg PO BID [facility] Stop: 11/30/18 20:59 Last Admin: 11/02/18 08:55 Dose: 150 mg Pravastatin Sodium (Pravachol) 20 mg PO HS [facility] Stop: 11/30/18 20:59 Last Admin: 11/01/18 21:56 Dose: 20 mg _ (1) CHF (congestive heart failure) Heart failure chronicity: unspecified Heart failure type: unspecified Qualified Code(s): I50.9 - Heart failure, unspecified
[2018-11-02] MEDS ORDERED: ACETAMINOPHEN 500 MG TAB ONE (09:10)
--- NOTE | 2018-11-02 10:13 | Cardiology Progress Note ---
Date of Service November 02, 2018 Assessment & Plan (1) Acute on chronic right heart failure: (2) Pacemaker: Telemetry reveals sinus rhythm and atrial paced rhythm in the 60-70 bpm range. The patient has a midline sternotomy, although records are not available, I believe she may have had valve surgery perhaps a bioprosthetic aortic valve in the past. Await records. Meade catheter in place as I had seen her yesterday, and IV diuretics had been continued. She does not have significant urine output however and her creatinine continues to climb. Echocardiogram reveals right ventricular chamber Dilatation and diffuse RV hypokinesis with preserved LVEF. Prognosis is poor. She is actually not mobilizing much in way of fluid, and I anticipate hemodialysis would be tolerated poorly from a hemodynamic standpoint given her RV dysfunction. Her primary Lining Caser is Dr Lombardo of [facility]. I left a message requesting Dr Lombardo call me back to discuss her history and condition. I think it would be helpful in terms of prognosis to determine the chronicity vs acuity of these issues as our team has not seen the patient in the past. Case discussed with Dr Ulloa. Subjective Chief complaint: Follow-up lower extremity edema Subjective: Patient continues to have significant abdominal, lower extremity swelling. She is more alert today, but very hard of hearing. A Meade catheter has been placed, however her urine output has been minimal and her creatinine continues to trend up from 2.49 on admission to 2.69 yesterday at 3.43 today With diuretics. Physical Exam 2 Vital Signs (Past 24 Hours): Last Vital Signs Temp 36.8 C 11/02/18 06:58 Pulse 68 11/02/18 06:58 Resp 14 11/02/18 06:58 BP 113/46 L 11/02/18 06:58 Pulse Ox 96 11/02/18 06:58 Constitutional: Chronically ill in appearance, Frail Respiratory: Auscultation: + diminished lung sounds (Decreased breath sounds the bases bilaterally) Cardiovascular: Extremities: + edema (2-3+ lower extremity edema) Regular rhythm, 1/6 systolic murmur Gastrointestinal (Abdomen): Inspection/Auscultation: + abdominal edema
[2018-11-02 10:31] LABS: Total Protein Urine Random 52.9 mg/dl (0-11.9)
[2018-11-02] MEDS: ALBUT/IPRATROP 3MG/0.5MG NEB 3 ML VIAL NEB SCH ×3 (11:16→19:04)
[2018-11-02] MEDS: ACETAMINOPHEN 500 MG TAB PO SCH ×2 (13:32→21:36)
[2018-11-02 15:56] LABS: Calcium 8.1 mg/dl (8.5-10.1); Creatinine Clr Calc Pharmacy 10.9 ml/min; Est GFR (African American) 12.3; Est GFR (Non-African American) 10.6; Potassium 5.1 mmol/L (3.5-5.1)
[2018-11-02] MEDS: PRAVASTATIN SOD 20 MG TAB PO SCH (20:50)
[2018-11-02] MEDS: CARVEDILOL 3.125 MG TAB PO SCH (20:52)
[2018-11-02] MEDS: HYDROmorphone INJ 0.5 MG/0.5 ML SYR IV PRN (22:42)
[2018-11-03] MEDS: HEPARIN SOD 5,000 UNIT/0.5 ML VIAL SQ SCH ×3 (06:03→22:19)
[2018-11-03] MEDS: ACETAMINOPHEN 500 MG TAB PO SCH ×3 (06:04→22:19)
[2018-11-03 06:56] LABS: Hematocrit (blood only) 27.7 % (37-47); Hemoglobin 8.5 g/dL (12.0-16.0); Mean Corpuscular Hgb Conc 30.7 g/dL (32-36); Mean Corpuscular Volume 77.4 fL (80-100); Mean Platelet Volume 9.7 fL (7.4-10.4); Platelet Count 114 K/uL (130-400); RDW Coefficient of Variation 18.4 % (11.5-14.5); Red Blood Count 3.58 M/uL (4.2-5.4); White Blood Count 4.15 K/uL (4.8-10.8)
[2018-11-03] MEDS: ALBUT/IPRATROP 3MG/0.5MG NEB 3 ML VIAL NEB SCH ×3 (07:11→15:12)
--- NOTE | 2018-11-03 07:24 | Nephrology Progress Note ---
Date of Service November 03, 2018 Assessment & Plan (1) Renal insufficiency: baseline creatinine per outside records 1.3-1.5 as of 09/2018; presenting creatinine 2.4, up to 2.7 then 3.4 then 3.7 today; oliguric initially but uop improved. chemistries acceptable though K climbing; no obvious renal lesions on imaging, though UA suggestive of tubular damage. -hold cozaar -no indication for dialysis at this time; she is a poor candidate should the need arise > not sure she would tolerate sitting still for the procedure, not sure she can tolerate hemodynamic changes >> trying to promote shared decision making here; pt has little insight into her clinical condition and will need reinforcement/reiteration -- not aware of current heart, kidney issues or their connection. not wanting "a lot of things done to me" but feels alternative is "to ;" which she also naturally does not want. Tried to redirect conversation to quality of life more than quantity concerns but this will need to be reinforced. 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 -diuresis in R HF can be challenging: will increase lasix and add metolazone 2.5 mg increase lasix to 40 mg and cont increased frequency to qid iv -cont FR 1.2L and <2 gm daily Na diet -f/u cardiology recs -daily standing wts, I/O ordered -wrap legs / apply teds if cardiology does not object Subjective seen on rounds this am at 0745. for the first time (3rd day I've seen her) she is awake on my exam. denies sob though sitter states pt did sit up suddenly - exhibit orthopnea, PND. no N or vomiting. no back / hip pain mentioned. no palpitations. not aware of edema. a bit more UOP here. no rash, no f/c; some PO. no focal numbness/weakness. states she is unaware that kidneys were worse, that she has heard of dialysis but does not know much about it. states that she does not want to but also does not want "a lot of things done to me" and that "I hate needles." Physical Exam 2 Vital Signs (Past 24 Hours): Last Vital Signs Temp 36.4 C L 11/03/18 06:54 Pulse 112 H 11/03/18 06:54 Resp 18 11/03/18 06:54 BP 117/66 11/03/18 06:54 Pulse Ox 93 11/03/18 06:54 Constitutional: well developed and well nourished on RA at my exam, A& 0 x 2-3 Eyes: EOM intact bilaterally ENMT: Ears: no external ear abnormality Nose: no external nose abnormality Mouth: + dry oral mucous membranes very RUBY Neck: no nuchal rigidity Respiratory: + labored breathing; no respiratory distress Auscultation: + diminished lung sounds, + crackles, + rhonchi and + wheezes Cardiovascular: Rate/Rhythm: regular rate and regular rhythm anasarca unchanged Gastrointestinal (Abdomen): Inspection/Auscultation: + abdomen distended and normal bowel sounds Percussion/Palpation: abdomen nontender Musculoskeletal: Extremities: + muscle atrophy; no cyanosis and no petechiae Skin: + rash Neurologic: awake Motor/Sensory: normal movement gaona, fluent speech Psychiatric: A+Ox3, euthymic affect Orientation: cooperative Eye Contact : good eye contact Motor Behavior: no abnormal motor movements and + psychomotor retardation Speech: normal rate/rhythm/volume of speech Affect : + flat affect Results & Data Laboratory Results Abnormal lab results 11/02/18 11/03/18 11/03/18 Range/Units 15:10 06:05 06:05 WBC 4.15 L (4.8-10.8) K/uL RBC 3.58 L (4.2-5.4) M/uL Hgb 8.5 L (12.0-16.0) g/dL Hct 27.7 L (37-47) % MCV 77.4 L (80-100) fL MCH 23.7 L (25-34) pg MCHC 30.7 L (32-36) g/dL RDW Std Deviation 52.0 H (36.4-46.3) fL RDW Coeff of Amos 18.4 H (11.5-14.5) % Plt Count 114 L (130-400) K/uL Sodium 134 L 135 L (136-145) mmol/L BUN 68 H 73 H (7-18) mg/dl Creatinine 3.59 H 3.74 H (0.6-1.2) mg/dl Glucose 106 H (70-99) mg/dl Calcium 8.1 L 8.0 L (8.5-10.1) mg/dl Magnesium 2.9 H (1.8-2.4) mg/dl
[2018-11-03 07:30] LABS: BUN Creatinine Ratio 19.6 (10-20); Creatinine Clr Calc Pharmacy 10.4 ml/min; Est GFR (African American) 11.7; Est GFR (Non-African American) 10.1; Magnesium 2.9 mg/dl (1.8-2.4); Potassium 4.9 mmol/L (3.5-5.1)
[2018-11-03] MEDS: metOLazone 2.5 MG TABLET PO SCH ×2 (08:44→20:16)
[2018-11-03] MEDS: PANTOprazole 40 MG TAB PO SCH (09:14)
[2018-11-03] MEDS: IRON POLYSACCHARIDE COMPLEX 150 MG CAPSULE PO SCH ×2 (09:14→20:15)
[2018-11-03] MEDS: ASPIRIN 81 MG ECTAB PO SCH (09:14)
[2018-11-03] MEDS: FUROSEMIDE 40 MG in SYRINGE 0 ML IV SCH ×4 (09:15→20:15)
--- NOTE | 2018-11-03 14:30 | Hospitalist Progress Note ---
Date of Service November 03, 2018 Assessment & Plan (1) CHF (congestive heart failure): Acute right heart failure. Family is consistently against hemodialysis. Will stay the course with diuretic therapy for now. Cont carvedilol. Hold losartan in setting of HANNAH. She is mobilizing more urine today. (2) Renal insufficiency: Acute on chronic renal failure, CKD stage III last checked 2017. Continue diuresis and setting of significant volume overload. Management per Nephrology. Holding Cozaar. (3) Anasarca: (4) Nausea & vomiting: Resolved with no abdominal pain on exam today. She is tolerating PO. (5) Left hip pain: appears to be intermittent which is consistent with son's report. Not an issue today. (6) Pacemaker: (7) Contact dermatitis: Rash on R shoulder has improved significantly without treatment. It is nonvesicular and more consistent with a contact dermatitis secondary to an adhesive dressing applied during her recent hospital stay around a R IJ central catheter. Zoster not favored, and isolation precautions were removed. (8) DVT prophylaxis: Heparin DO NOT RESUSCITATE Clear discussion with son, Skyler, today regarding state of things. He is in favor of continuing dialysis efforts and if this does not work and she declines further transitioning to comfort care. For now we will continue efforts with diuresis and improving urine output. He understands that if she has a cardiac event during this hospitalization she will not be resuscitated and he is okay with that. Ana Ulloa DO [facility] Hospitalist Subjective 88-year-old female with severe acute right heart failure and worsening kidney function despite diuretic therapy. Denies SOB or pain. Has some abdominal pain in the injection site for heparin she just received. Otherwise asymptomatic. I again tried to address the overall issues with her, and despite Dr. Garcia's conversation with her about this, she didn't remember that or seem to understand her issues well. She continues to defer to her son for decision making. Physical Exam 2 Vital Signs (Past 24 Hours): Last Vital Signs Temp 36.4 C L 11/03/18 10:52 Pulse 108 H 11/03/18 11:05 Resp 16 11/03/18 11:05 BP 125/68 11/03/18 10:52 Pulse Ox 94 11/03/18 11:05 CONSTITUTIONAL: WNWD, vitals as above, alert and oriented. Sitting in bedside chair. EYES: normal conjuctivae, no scleral icterus, pupils are equal and round ENT: MMM NECK: non-vesicular erythematous papular rash that is scattered on the R neck/ shoulder which is again improved today. There is a well-healed punctum site where a prior R IJ was present. RESPIRATORY: wheezing/rhonchi throughout all lung mata but improved today. CARDIOVASCULAR: regular rate and rhythm, S1 and 2 heard without murmurs, gallops or rubs, 3+ pitting edema of bilateral lower extremities up to and involving abdomen. GASTROINTESTINAL: normal bowel sounds, soft, nondistended, 3+ pitting edema, some ecchymosis around injection sites present. MUSCULOSKELETAL: generalized weakness. SKIN: warm and dry, rash as above. NEUROLOGIC: CN 2-12 grossly intact. Results & Data Laboratory Results Short CBC 11/03/18 Range/Units 06:05 WBC 4.15 L (4.8-10.8) K/uL Hgb 8.5 L (12.0-16.0) g/dL Hct 27.7 L (37-47) % Plt Count 114 L (130-400) K/uL BMP 11/03/18 06:05 Sodium 135 L Potassium 4.9 Chloride 104 Carbon Dioxide 24 BUN 73 H Creatinine 3.74 H Glucose 83 Calcium 8.0 L Medications Administered Current Inpatient Medications Acetaminophen (Tylenol) 1,000 mg PO Q8H [facility] Stop: 12/02/18 08:59 Last Admin: 11/03/18 13:34 Dose: 1,000 mg Albuterol (Duoneb) 3 ml NEB Q2R PRN PRN Reason: SOB, wheezing Stop: 12/03/18 15:26 Aspirin (Ecotrin Ectab) 81 mg PO QAM [facility] Stop: 12/01/18 08:59 Last Admin: 11/03/18 09:14 Dose: 81 mg Bacitracin (Bacitracin) 1 appln TOP DAILY PRN PRN Reason: REMOVAL OF PICC Stop: 11/30/18 17:04 Last Admin: 11/01/18 08:24 Dose: 1 appln Carvedilol (Coreg) 3.125 mg PO HS [facility] Stop: 11/30/18 20:59 Last Admin: 11/02/18 20:52 Dose: 3.125 mg Guaifenesin/Dextromethorphan (Robitussin Cough-Chest Dm) 10 ml PO Q4 PRN PRN Reason: Cough Stop: 11/30/18 17:04 Heparin Sodium (Porcine) (Heparin Sodium (Porcine)) 5,000 units SQ Q8 [facility] Stop: 12/01/18 13:59 Last Admin: 11/03/18 13:35 Dose: 5,000 units Hydromorphone HCl (Dilaudid) 0.25 mg IV Q2H PRN PRN Reason: Severe Pain Stop: 11/14/18 18:31 Last Admin: 11/02/18 22:42 Dose: 0.25 mg Hydroxyzine HCl (Vistaril) 10 mg PO Q6H PRN PRN Reason: Itching Stop: 12/03/18 14:30 Last Admin: 11/03/18 14:55 Dose: 10 mg Furosemide 40 mg/ Syringe 4 mls @ 4 mls/min IV QID [facility] Stop: 12/03/18 07:59 Last Admin: 11/03/18 16:24 Dose: 4 mls/min Magnesium Hydroxide (Milk Of Magnesia) 30 ml PO DAILY PRN PRN Reason: Constipation Stop: 11/30/18 17:04 Metolazone (Zaroxolyn) 2.5 mg PO BID@0830,2030 [facility] Stop: 12/03/18 07:29 Last Admin: 11/03/18 08:44 Dose: 2.5 mg Ondansetron HCl (Zofran) 4 mg IV Q6H PRN PRN Reason: Nausea Stop: 11/30/18 23:17 Pantoprazole Sodium (Protonix) 40 mg PO QAM [facility] Stop: 12/01/18 08:59 Last Admin: 11/03/18 09:14 Dose: 40 mg Polysaccharide Iron Complex (Niferex-150 W/Vit C Cap) 150 mg PO BID [facility] Stop: 11/30/18 20:59 Last Admin: 11/03/18 09:14 Dose: 150 mg Pravastatin Sodium (Pravachol) 20 mg PO HS [facility] Stop: 11/30/18 20:59 Last Admin: 11/02/18 20:50 Dose: 20 mg _ (1) CHF (congestive heart failure) Heart failure chronicity: unspecified Heart failure type: unspecified Qualified Code(s): I50.9 - Heart failure, unspecified
[2018-11-03] MEDS: hydrOXYzine HCl 10 MG TAB PO PRN (14:55)
[2018-11-03] MEDS ORDERED: ALBUT/IPRATROP 3MG/0.5MG NEB 3 ML VIAL NEB PRN (15:27)
[2018-11-03] MEDS: CARVEDILOL 3.125 MG TAB PO SCH (20:15)
[2018-11-03] MEDS: PRAVASTATIN SOD 20 MG TAB PO SCH (20:16)
[2018-11-04] MEDS: ACETAMINOPHEN 500 MG TAB PO SCH ×4 (06:28→21:38)
[2018-11-04] MEDS: HEPARIN SOD 5,000 UNIT/0.5 ML VIAL SQ SCH ×3 (06:28→21:37)
[2018-11-04 06:58] LABS: BUN Creatinine Ratio 20.3 (10-20); Calcium 8.2 mg/dl (8.5-10.1); Creatinine Clr Calc Pharmacy 11.9 ml/min; Est GFR (African American) 13.9; Potassium 3.5 mmol/L (3.5-5.1)
[2018-11-04] MEDS: PANTOprazole 40 MG TAB PO SCH (08:32)
[2018-11-04] MEDS: ASPIRIN 81 MG ECTAB PO SCH (08:33)
[2018-11-04] MEDS: IRON POLYSACCHARIDE COMPLEX 150 MG CAPSULE PO SCH ×2 (08:33→20:59)
[2018-11-04] MEDS: metOLazone 2.5 MG TABLET PO SCH ×2 (08:33→20:59)
[2018-11-04] MEDS: FUROSEMIDE 40 MG in SYRINGE 0 ML IV SCH ×4 (08:34→21:40)
[2018-11-04] MEDS ORDERED: SODIUM CHLORIDE 0.65% NA SOLN 45 ML (OCEAN) ONE (08:43)
[2018-11-04] MEDS ORDERED: SODIUM CHLORIDE 0.65% NA SOLN 45 ML (OCEAN) NAE PRN (09:36)
--- NOTE | 2018-11-04 14:52 | Hospitalist Progress Note ---
Date of Service November 04, 2018 Assessment & Plan (1) CHF (congestive heart failure): Acute right heart failure. Improved on Metolazone and Lasix QID. Cont carvedilol. Hold losartan in setting of HANNAH. She is mobilizing more urine today, with approx 2-3 liters output daily over the past 48 hours. (2) Renal insufficiency: Acute on chronic renal failure, CKD stage III last checked 2017. Continue diuresis and setting of significant volume overload. Management per Nephrology. Holding Cozaar. (3) Anasarca: Plan as above. This is improved. (4) Pacemaker: (5) DVT prophylaxis: Heparin DO NOT RESUSCITATE Dispo-cont current treatment plan. Ana Ulloa DO [facility] Hospitalist Subjective +generalized malaise "I just dont feel well" tolerating some PO denies abdominal pain. Physical Exam 2 Vital Signs (Past 24 Hours): Last Vital Signs Temp 36.7 C 11/04/18 11:14 Pulse 83 11/04/18 11:14 Resp 19 11/04/18 11:14 BP 157/78 H 11/04/18 11:14 Pulse Ox 93 11/04/18 11:14 CONSTITUTIONAL: WNWD, vitals as above, alert and oriented. Ill-appearing, fatigued. EYES: normal conjuctivae, no scleral icterus ENT: MMM RESPIRATORY: coarse rhonchi throughout with scattered wheezes. CARDIOVASCULAR: regular rate and rhythm, S1 and 2 heard without murmurs, gallops or rubs, 1+ pitting edema of bilateral lower extremities up to and involving abdomen, but this is also improved. GASTROINTESTINAL: normal bowel sounds, soft, nondistended MUSCULOSKELETAL: generalized weakness. SKIN: warm and dry, rash as above. NEUROLOGIC: CN 2-12 grossly intact. Results & Data Laboratory Results [facility] 11/05/18 04:40 Sodium 137 Potassium 3.2 L Chloride 101 Carbon Dioxide 29 BUN 69 H Creatinine 2.99 H Glucose 107 H Calcium 8.5 Medications Administered Current Inpatient Medications Acetaminophen (Tylenol) 1,000 mg PO Q8H [facility] Stop: 12/02/18 08:59 Last Admin: 11/05/18 13:22 Dose: Not Given Albuterol (Duoneb) 3 ml NEB Q2R PRN PRN Reason: SOB, wheezing Stop: 02/17/19 15:26 Aspirin (Ecotrin Ectab) 81 mg PO QAM [facility] Stop: 12/01/18 08:59 Last Admin: 11/05/18 08:25 Dose: 81 mg Bacitracin (Bacitracin) 1 appln TOP DAILY PRN PRN Reason: REMOVAL OF PICC Stop: 11/30/18 17:04 Last Admin: 11/01/18 08:24 Dose: 1 appln Carvedilol (Coreg) 3.125 mg PO HS [facility] Stop: 11/30/18 20:59 Last Admin: 11/04/18 20:58 Dose: 3.125 mg Guaifenesin/Dextromethorphan (Robitussin Cough-Chest Dm) 10 ml PO Q4 PRN PRN Reason: Cough Stop: 11/30/18 17:04 Last Admin: 11/05/18 00:43 Dose: 10 ml Heparin Sodium (Porcine) (Heparin Sodium (Porcine)) 5,000 units SQ Q8 [facility] Stop: 12/01/18 13:59 Last Admin: 11/05/18 13:23 Dose: 5,000 units Hydromorphone HCl (Dilaudid) 0.25 mg IV Q2H PRN PRN Reason: Severe Pain Stop: 11/14/18 18:31 Last Admin: 11/05/18 02:21 Dose: 0.25 mg Hydroxyzine HCl (Vistaril) 10 mg PO Q6H PRN PRN Reason: Itching Stop: 12/03/18 14:30 Last Admin: 11/04/18 20:58 Dose: 10 mg Furosemide 40 mg/ Syringe 4 mls @ 4 mls/min IV QID [facility] Stop: 12/03/18 07:59 Last Admin: 11/05/18 18:05 Dose: 4 mls/min Magnesium Hydroxide (Milk Of Magnesia) 30 ml PO DAILY PRN PRN Reason: Constipation Stop: 11/30/18 17:04 Metolazone (Zaroxolyn) 2.5 mg PO BID@0830,2030 [facility] Stop: 12/03/18 07:29 Last Admin: 11/05/18 08:25 Dose: 2.5 mg Ondansetron HCl (Zofran) 4 mg IV Q6H PRN PRN Reason: Nausea Stop: 11/30/18 23:17 Pantoprazole Sodium (Protonix) 40 mg PO QAM [facility] Stop: 12/01/18 08:59 Last Admin: 11/05/18 08:26 Dose: 40 mg Polysaccharide Iron Complex (Niferex-150 W/Vit C Cap) 150 mg PO BID [facility] Stop: 11/30/18 20:59 Last Admin: 11/05/18 08:25 Dose: 150 mg Pravastatin Sodium (Pravachol) 20 mg PO HS [facility] Stop: 11/30/18 20:59 Last Admin: 11/04/18 20:58 Dose: 20 mg Sodium Chloride (Manati Nasal) 1 sprays SARATH QID PRN PRN Reason: Nasal Congestion Stop: 12/04/18 09:35 _ (1) CHF (congestive heart failure) Heart failure chronicity: unspecified Heart failure type: unspecified Qualified Code(s): I50.9 - Heart failure, unspecified
--- NOTE | 2018-11-04 15:30 | Nephrology Progress Note ---
Date of Service November 04, 2018 Assessment & Plan (1) Renal insufficiency: baseline creatinine per outside records 1.3-1.5 as of 09/2018; presenting creatinine 2.4, up to 2.7 then peak at 3.4. Cr down to 3.2 today; -no indication for dialysis at this time; she is a poor candidate should the need arise > not sure she would tolerate sitting still for the procedure, not sure she can tolerate hemodynamic changes. -Monitor renal function with daily BMP in setting of diuresis (2) Anasarca: from R HF; liver dysfunction likeliest from congestive hepatopathy >> given low plts, anemia/pancytopenia, mild elevation in INR; no nephrotic syndrome. -diuresis in R HF can be challenging: will Continue metolazone 2.5 mg and lasix 40 mg qid -cont FR 1.2L and <2 gm daily Na diet -Target net negative 2lires daily. Subjective Patient complaining of fatigue and abdominal pain. She is responding to diuretics but still marked swelling. Cr down to 3.2 today Review of Systems All systems reviewed & are unremarkable except as noted in HPI & below Physical Exam 2 Vital Signs (Past 24 Hours): Last Vital Signs Temp 36.7 C 11/04/18 11:14 Pulse 83 11/04/18 11:14 Resp 19 11/04/18 11:14 BP 157/78 H 11/04/18 11:14 Pulse Ox 93 11/04/18 11:14 Physical Exam: General exam: Ill appearing, no acute distress HEENT: Pupils are equal and reactive to light Neck: No JVD, neck is supple trachea is midline Respiratory system: Clear breath sounds bilaterally. Gastrointestinal: Abdomen is soft, soft tissue edema in the flanks, bowel sounds are present CVS: Regular rate and rhythm. No murmurs, rubs or gallops Musculoskeletal: No joint or muscle tenderness Extremities: Non tender, 2+ edema, peripheral pulses are present Neuro: Oriented, no tremors, no focal neurological deficits Skin: No rashes Results & Data Laboratory Results reviewed, cr 3.2 and K 3.5
[2018-11-04] MEDS: hydrOXYzine HCl 10 MG TAB PO PRN (20:58)
[2018-11-04] MEDS: CARVEDILOL 3.125 MG TAB PO SCH (20:58)
[2018-11-04] MEDS: PRAVASTATIN SOD 20 MG TAB PO SCH (20:58)
[2018-11-05] MEDS: GUAIFENESIN/DEXTROM SYRUP 200MG/20MG 10ML UDC PO PRN ×2 (00:43→20:41)
[2018-11-05] MEDS: HYDROmorphone INJ 0.5 MG/0.5 ML SYR IV PRN (02:21)
[2018-11-05 05:51] LABS: BUN Creatinine Ratio 22.9 (10-20); Calcium 8.5 mg/dl (8.5-10.1); Est GFR (African American) 15.4; Est GFR (Non-African American) 13.3; Potassium 3.2 mmol/L (3.5-5.1)
[2018-11-05] MEDS: HEPARIN SOD 5,000 UNIT/0.5 ML VIAL SQ SCH ×3 (06:25→22:20)
[2018-11-05] MEDS: ACETAMINOPHEN 500 MG TAB PO SCH ×3 (06:30→22:20)
[2018-11-05] MEDS: metOLazone 2.5 MG TABLET PO SCH ×2 (08:25→20:41)
[2018-11-05] MEDS: IRON POLYSACCHARIDE COMPLEX 150 MG CAPSULE PO SCH ×2 (08:25→20:41)
[2018-11-05] MEDS: FUROSEMIDE 40 MG in SYRINGE 0 ML IV SCH ×4 (08:25→21:25)
[2018-11-05] MEDS: ASPIRIN 81 MG ECTAB PO SCH (08:25)
[2018-11-05] MEDS: PANTOprazole 40 MG TAB PO SCH (08:26)
[2018-11-05] MEDS ORDERED: POTASSIUM CHLORIDE 20 MEQ TABCR PO ONE (08:45)
--- NOTE | 2018-11-05 15:49 | Nephrology Progress Note ---
Date of Service November 05, 2018 Assessment & Plan (1) Renal insufficiency: baseline creatinine per outside records 1.3-1.5 as of 09/2018; presenting creatinine 2.4, up to 2.7 then peak at 3.4. Cr down to 2.9 today; -no indication for dialysis at this time; she is a poor candidate should the need arise > not sure she would tolerate sitting still for the procedure, not sure she can tolerate hemodynamic changes. -Monitor renal function with daily BMP in setting of diuresis (2) Anasarca: from R HF; liver dysfunction likeliest from congestive hepatopathy >> given low plts, anemia/pancytopenia, mild elevation in INR; no nephrotic syndrome. -diuresis in R HF can be challenging: will Continue metolazone 2.5 mg and lasix 40 mg qid -cont FR 1.2L and <2 gm daily Na diet -Target net negative 2litres daily. Subjective Patient is drowsy today. Did not give much history but denied pain or shortness of breath. She continues to respond well to diuretics with net negative of 2.3 L. Review of Systems Unobtainable due to cognitive status Physical Exam 2 Vital Signs (Past 24 Hours): Last Vital Signs Temp 36.6 C 11/05/18 12:36 Pulse 60 11/05/18 12:36 Resp 16 11/05/18 12:36 BP 141/54 H 11/05/18 12:36 Pulse Ox 99 11/05/18 12:36 Physical Exam: General exam: Drowsy but arousable, appears comfortable, no acute distress HEENT: Pupils are equal and reactive to light Neck: No JVD, neck is supple trachea is midline Respiratory system: Clear breath sounds bilaterally. Gastrointestinal: Abdomen is soft, non distended, non tender, bowel sounds are present CVS: Regular rate and rhythm. No murmurs, rubs or gallops Musculoskeletal: No joint or muscle tenderness Extremities: Non tender, 3+ edema, peripheral pulses are present Neuro: Oriented, no tremors, no focal neurological deficits Skin: No rashes
[2018-11-05] MEDS: CARVEDILOL 3.125 MG TAB PO SCH (20:41)
[2018-11-05] MEDS: PRAVASTATIN SOD 20 MG TAB PO SCH (20:41)
[2018-11-06] MEDS: ACETAMINOPHEN 500 MG TAB PO SCH ×3 (06:34→22:01)
[2018-11-06] MEDS: HEPARIN SOD 5,000 UNIT/0.5 ML VIAL SQ SCH ×3 (06:34→22:01)
[2018-11-06 07:19] LABS: Hemoglobin 8.6 g/dL (12.0-16.0); Mean Corpuscular Hgb Conc 30.7 g/dL (32-36); Mean Corpuscular Volume 77.6 fL (80-100); Mean Platelet Volume 9.1 fL (7.4-10.4); Platelet Count 101 K/uL (130-400); RDW Coefficient of Variation 19.6 % (11.5-14.5); RDW Standard Deviation 52.8 fL (36.4-46.3); Red Blood Count 3.61 M/uL (4.2-5.4); White Blood Count 4.16 K/uL (4.8-10.8)
[2018-11-06] MEDS: IRON POLYSACCHARIDE COMPLEX 150 MG CAPSULE PO SCH ×2 (07:35→21:34)
[2018-11-06] MEDS: metOLazone 2.5 MG TABLET PO SCH ×2 (07:35→21:30)
[2018-11-06] MEDS: ASPIRIN 81 MG ECTAB PO SCH (07:35)
[2018-11-06] MEDS: PANTOprazole 40 MG TAB PO SCH (07:35)
[2018-11-06 07:46] LABS: BUN Creatinine Ratio 22.5 (10-20); Calcium 8.5 mg/dl (8.5-10.1); Creatinine Clr Calc Pharmacy 13.2 ml/min; Est GFR (African American) 16.4; Est GFR (Non-African American) 14.1; Magnesium 2.7 mg/dl (1.8-2.4)
--- NOTE | 2018-11-06 09:29 | Nephrology Progress Note ---
Date of Service November 06, 2018 Assessment & Plan (1) Renal insufficiency: baseline creatinine per outside records 1.3-1.5 as of 09/2018; presenting creatinine 2.4, up to 2.7 then peak at 3.4. Cr down to 2.8 today; volume status is improving with net loss of about 8.5 kg since admission -no indication for dialysis at this time; she is a poor candidate should the need arise > not sure she would tolerate sitting still for the procedure, not sure she can tolerate hemodynamic changes. -Monitor renal function with daily BMP in setting of diuresis (2) Anasarca: from R HF; liver dysfunction likeliest from congestive hepatopathy >> given low plts, anemia/pancytopenia, mild elevation in INR; no nephrotic syndrome. -diuresis in R HF can be challenging: will Continue metolazone 2.5 mg and lasix 40 mg qid -cont FR 1.2L and <2 gm daily Na diet -Target net negative 2litres daily. -She will likely need around 100 mg of torsemide daily on discharge Subjective Patient feels better today. She is sitting up in the chair eating breakfast. No shortness of breath. She has lost about 8.5 kg since admission. She continues to respond well to diuretics. Review of Systems All systems reviewed & are unremarkable except as noted in HPI & below Physical Exam 2 Vital Signs (Past 24 Hours): Last Vital Signs Temp 36.5 C 11/06/18 07:15 Pulse 61 11/06/18 07:15 Resp 16 11/06/18 07:15 BP 136/62 11/06/18 07:15 Pulse Ox 92 11/06/18 07:15 Physical Exam: General exam: Appears comfortable, sitting up in chair, no acute distress HEENT: Pupils are equal and reactive to light Neck: No JVD, neck is supple trachea is midline Respiratory system: Clear breath sounds bilaterally. Gastrointestinal: Abdomen is soft, non distended, non tender, bowel sounds are present CVS: Regular rate and rhythm. No murmurs, rubs or gallops Musculoskeletal: No joint or muscle tenderness Extremities: Non tender, 2+ edema, peripheral pulses are present Neuro: Orientedx2 , no tremors, no focal neurological deficits Skin: No rashes
[2018-11-06] MEDS ORDERED: POTASSIUM CHLORIDE 20 MEQ TABCR PO SCH (09:30)
[2018-11-06] MEDS: ONDANSETRON INJ 2 MG/ML 2 ML VIAL IV PRN (09:42)
[2018-11-06] MEDS: FUROSEMIDE 40 MG in SYRINGE 0 ML IV SCH ×4 (09:42→22:02)
[2018-11-06 10:31] LABS: Iron 20 mcg/dl (35-150)
[2018-11-06] MEDS: POTASSIUM CHLORIDE 20 MEQ TABCR PO SCH ×2 (12:57→16:47)
--- NOTE | 2018-11-06 14:54 | Hospitalist Progress Note ---
Date of Service November 06, 2018 Assessment & Plan (1) CHF (congestive heart failure): Acute right heart failure. Improved on Metolazone and Lasix QID. Cont carvedilol. Hold losartan in setting of HANNAH. Continues to make urine and diurese. she appears exhausted. We discussed palliative care options. (2) Renal insufficiency: Acute on chronic renal failure, CKD stage III last checked 2017. Continue diuresis and setting of significant volume overload. Improving. Management per Nephrology. Holding Cozaar. (3) Anasarca: Plan as above. This is improved. (4) Pacemaker: (5) DVT prophylaxis: Heparin DO NOT RESUSCITATE Dispo-cont current treatment plan. Ana Ulloa DO [facility] Hospitalist Subjective Denies abdominal pain Denies other pain ROS is limited as patient is very fatigued and needs questions repeated and sometimes doesn't respond ambrosio PO Physical Exam 2 Vital Signs (Past 24 Hours): Last Vital Signs Temp 36.6 C 11/06/18 10:55 Pulse 60 11/06/18 10:55 Resp 16 11/06/18 10:55 BP 125/43 L 11/06/18 10:55 Pulse Ox 92 11/06/18 10:55 CONSTITUTIONAL: WNWD, vitals as above, alert and oriented. Ill-appearing, fatigued. EYES: normal conjuctivae, no scleral icterus ENT: MMM RESPIRATORY: coarse rhonchi throughout are improved, no respiratory distress or conversational dyspnea. CARDIOVASCULAR: regular rate and rhythm, S1 and 2 heard without murmurs, gallops or rubs, 1+ pitting edema of bilateral lower extremities up to and involving abdomen, but this is also improved. GASTROINTESTINAL: normal bowel sounds, soft, nondistended MUSCULOSKELETAL: generalized weakness. SKIN: warm and dry, rash as above. NEUROLOGIC: CN 2-12 grossly intact. Results & Data Laboratory Results Short CBC 11/06/18 Range/Units 07:04 WBC 4.16 L (4.8-10.8) K/uL Hgb 8.6 L (12.0-16.0) g/dL Hct 28.0 L (37-47) % Plt Count 101 L (130-400) K/uL BMP 11/06/18 07:04 Sodium 138 Potassium 3.0 L Chloride 99 Carbon Dioxide 29 BUN 64 H Creatinine 2.84 H Glucose 171 H Calcium 8.5 Medications Administered Current Inpatient Medications Acetaminophen (Tylenol) 1,000 mg PO Q8H [facility] Stop: 12/02/18 08:59 Last Admin: 11/06/18 22:01 Dose: Not Given Albuterol (Duoneb) 3 ml NEB Q2R PRN PRN Reason: SOB, wheezing Stop: 12/03/18 15:26 Aspirin (Ecotrin Ectab) 81 mg PO QAM [facility] Stop: 12/01/18 08:59 Last Admin: 11/06/18 07:35 Dose: 81 mg Bacitracin (Bacitracin) 1 appln TOP DAILY PRN PRN Reason: REMOVAL OF PICC Stop: 11/30/18 17:04 Last Admin: 11/01/18 08:24 Dose: 1 appln Carvedilol (Coreg) 3.125 mg PO HS [facility] Stop: 11/30/18 20:59 Last Admin: 11/06/18 21:34 Dose: 3.125 mg Guaifenesin/Dextromethorphan (Robitussin Cough-Chest Dm) 10 ml PO Q4 PRN PRN Reason: Cough Stop: 11/30/18 17:04 Last Admin: 11/05/18 20:41 Dose: 10 ml Heparin Sodium (Porcine) (Heparin Sodium (Porcine)) 5,000 units SQ Q8 [facility] Stop: 12/01/18 13:59 Last Admin: 11/06/18 22:01 Dose: 5,000 units Hydromorphone HCl (Dilaudid) 0.25 mg IV Q2H PRN PRN Reason: Severe Pain Stop: 11/14/18 18:31 Last Admin: 11/06/18 23:19 Dose: 0.25 mg Hydroxyzine HCl (Vistaril) 10 mg PO Q6H PRN PRN Reason: Itching Stop: 12/03/18 14:30 Last Admin: 11/04/18 20:58 Dose: 10 mg Furosemide 40 mg/ Syringe 4 mls @ 4 mls/min IV QID [facility]ALINE Stop: 12/03/18 07:59 Last Admin: 11/06/18 22:02 Dose: 4 mls/min Magnesium Hydroxide (Milk Of Magnesia) 30 ml PO DAILY PRN PRN Reason: Constipation Stop: 11/30/18 17:04 Metolazone (Zaroxolyn) 2.5 mg PO BID@0830,2030 [facility] Stop: 12/03/18 07:29 Last Admin: 11/06/18 21:30 Dose: 2.5 mg Ondansetron HCl (Zofran) 4 mg IV Q6H PRN PRN Reason: Nausea Stop: 11/30/18 23:17 Last Admin: 11/06/18 09:42 Dose: 4 mg Pantoprazole Sodium (Protonix) 40 mg PO QAM [facility] Stop: 12/01/18 08:59 Last Admin: 11/06/18 07:35 Dose: 40 mg Polysaccharide Iron Complex (Niferex-150 W/Vit C Cap) 150 mg PO BID [facility] Stop: 11/30/18 20:59 Last Admin: 11/06/18 21:34 Dose: 150 mg Pravastatin Sodium (Pravachol) 20 mg PO HS [facility] Stop: 11/30/18 20:59 Last Admin: 11/06/18 21:33 Dose: 20 mg Sodium Chloride (Saline Nasal) 1 sprays SARATH QID PRN PRN Reason: Nasal Congestion Stop: 12/04/18 09:35 _ (1) CHF (congestive heart failure) Heart failure chronicity: unspecified Heart failure type: unspecified Qualified Code(s): I50.9 - Heart failure, unspecified
[2018-11-06] MEDS: PRAVASTATIN SOD 20 MG TAB PO SCH (21:33)
[2018-11-06] MEDS: CARVEDILOL 3.125 MG TAB PO SCH (21:34)
[2018-11-06] MEDS: HYDROmorphone INJ 0.5 MG/0.5 ML SYR IV PRN (23:19)
--- NOTE | 2018-11-07 03:26 | Hospitalist Progress Note ---
Date of Service November 05, 2018 Assessment & Plan (1) CHF (congestive heart failure): Acute right heart failure. Improved on Metolazone and Lasix QID. Cont carvedilol. Hold losartan in setting of HANNAH. Continues to make urine and diurese. (2) Renal insufficiency: Acute on chronic renal failure, CKD stage III last checked 2017. Continue diuresis and setting of significant volume overload. Improving. Management per Nephrology. Holding Cozaar. (3) Anasarca: Plan as above. This is improved. (4) Pacemaker: (5) DVT prophylaxis: Heparin DO NOT RESUSCITATE Dispo-cont current treatment plan. Ana Ulloa DO [facility] Hospitalist Subjective doing fine overall without much to say. intermittent abdominal discomfort seemingly related to DVT prophylaxis vs body wall edema. tolerating PO Physical Exam 2 Vital Signs (Past 24 Hours): Last Vital Signs Temp 37.0 C 11/06/18 23:54 Pulse 61 11/06/18 23:54 Resp 16 11/06/18 23:54 BP 132/46 L 11/06/18 23:54 Pulse Ox 93 11/06/18 23:54 CONSTITUTIONAL: WNWD, vitals as above, alert and oriented. Ill-appearing, fatigued. EYES: normal conjuctivae, no scleral icterus ENT: MMM RESPIRATORY: coarse rhonchi throughout with scattered wheezes. CARDIOVASCULAR: regular rate and rhythm, S1 and 2 heard without murmurs, gallops or rubs, 1+ pitting edema of bilateral lower extremities up to and involving abdomen GASTROINTESTINAL: normal bowel sounds, soft, nondistended MUSCULOSKELETAL: generalized weakness. SKIN: warm and dry, rash as above. NEUROLOGIC: CN 2-12 grossly intact. _ (1) CHF (congestive heart failure) Heart failure chronicity: unspecified Heart failure type: unspecified Qualified Code(s): I50.9 - Heart failure, unspecified
[2018-11-07] MEDS: ACETAMINOPHEN 500 MG TAB PO SCH ×3 (05:47→23:39)
[2018-11-07] MEDS: HEPARIN SOD 5,000 UNIT/0.5 ML VIAL SQ SCH ×3 (05:48→21:01)
[2018-11-07 07:19] LABS: BUN Creatinine Ratio 24.7 (10-20); Calcium 8.6 mg/dl (8.5-10.1); Creatinine Clr Calc Pharmacy 13.5 ml/min; Est GFR (African American) 16.9; Est GFR (Non-African American) 14.6; Potassium 4.6 mmol/L (3.5-5.1)
[2018-11-07] MEDS: FUROSEMIDE 40 MG in SYRINGE 0 ML IV SCH ×4 (08:31→20:59)
[2018-11-07] MEDS: IRON POLYSACCHARIDE COMPLEX 150 MG CAPSULE PO SCH ×2 (08:32→20:56)
[2018-11-07] MEDS: ASPIRIN 81 MG ECTAB PO SCH (08:32)
[2018-11-07] MEDS: PANTOprazole 40 MG TAB PO SCH (08:33)
--- NOTE | 2018-11-07 09:39 | Nephrology Progress Note ---
Date of Service November 07, 2018 Assessment & Plan (1) Renal insufficiency: baseline creatinine per outside records 1.3-1.5 as of 09/2018; presenting creatinine 2.4, up to 2.7 then peak at 3.4. Cr down to 2.77 today; volume status is improving with net loss of about 8.5 kg since admission -no indication for dialysis at this time; she is a poor candidate should the need arise > not sure she would tolerate sitting still for the procedure, not sure she can tolerate hemodynamic changes. -Monitor renal function with daily BMP in setting of diuresis (2) Anasarca: from R HF; liver dysfunction likeliest from congestive hepatopathy >> given low plts, anemia/pancytopenia, mild elevation in INR; no nephrotic syndrome. -diuresis in R HF can be challenging: will Continue metolazone 2.5 mg and lasix 40 mg qid. Will simplify regimen towards discharge. -cont FR 1.2L and <2 gm daily Na diet -Target net negative 2litres daily. -She will likely need around 100 mg of torsemide daily on discharge Subjective Patient with CKD and volume overload. Patient feels better today. She is sleepy this morning. No shortness of breath. She has lost about 8.5 kg since admission. She continues to respond well to diuretics. ROS All other systems were reviewed and negative except as noted in HPI Physical Exam 2 Vital Signs (Past 24 Hours): Last Vital Signs Temp 37.0 C 11/07/18 06:53 Pulse 61 11/07/18 06:53 Resp 18 11/07/18 06:53 BP 157/62 H 11/07/18 06:53 Pulse Ox 98 11/07/18 06:53 Physical Exam: General exam: Appears comfortable, no acute distress HEENT: Pupils are equal and reactive to light Neck: No JVD, neck is supple trachea is midline Respiratory system: Clear breath sounds bilaterally. Gastrointestinal: Abdomen is soft, non distended, non tender, bowel sounds are present CVS: Regular rate and rhythm. No murmurs, rubs or gallops Musculoskeletal: No joint or muscle tenderness Extremities: Non tender, 2+ edema, peripheral pulses are present Neuro: Oriented, no tremors, no focal neurological deficits Skin: No rashes
[2018-11-07] MEDS: metOLazone 2.5 MG TABLET PO SCH ×2 (09:50→20:56)
--- NOTE | 2018-11-07 14:45 | Hospitalist Progress Note ---
Date of Service November 07, 2018 Assessment & Plan (1) CHF (congestive heart failure): Acute right heart failure. Improved on Metolazone and Lasix QID. Cont carvedilol. Hold losartan in setting of HANNAH. Continues to make urine and diurese. (2) Renal insufficiency: Acute on chronic renal failure, CKD stage III last checked 2017. Continue diuresis and setting of significant volume overload. Continues to improve. Management per Nephrology. (3) Anasarca: Plan as above. This is improved. (4) Pacemaker: (5) Epistaxis: Some epistaxis that began overnight and is minimal in the setting of dry, wintry weather. No trauma. She is on heparin which, with her immobility and comorbidities I would like to continue, for DVT prophylaxis. However, if her bleeding becomes more consistent or concerning to family or staff, we will plan to hold. (6) DVT prophylaxis: Heparin DO NOT RESUSCITATE Dispo-cont current treatment plan. I spoke wtih both son and DIL today and addressed her clear exhaustion. Despite the improvement we are making from a treatment standpoint, she is absolutely exhausted. We again readdressed the palliative care option-which I also addressed with her overnight. Cont to monitor progress. Ana Ulloa, DO [facility] Hospitalist Subjective 88 yo F who appears exhausted again today. Some development of epistaxis on heparin overnight that is reported to be minimal by nursing staff. The patient denies any symptoms at this time. DIL at bedside, care plan discussed with her. Physical Exam 2 Vital Signs (Past 24 Hours): Last Vital Signs Temp 36.2 C L 11/07/18 11:07 Pulse 60 11/07/18 11:07 Resp 18 11/07/18 11:07 BP 129/56 L 11/07/18 11:07 Pulse Ox 98 11/07/18 06:53 CONSTITUTIONAL: WNWD, vitals as above, alert and oriented. Ill-appearing, fatigued, exhausted. so tired it appears difficult to speak. Some bright red blood on her gown. EYES: normal conjuctivae, no scleral icterus ENT: MMM, no trauma or bleeding in nose. RESPIRATORY: coarse rhonchi throughout are again improved, more air movement today that is clear. No respiratory distress. CARDIOVASCULAR: regular rate and rhythm, S1 and 2 heard without murmurs, gallops or rubs, 1+ pitting edema of bilateral lower extremities up to thighs, but this is also improved. GASTROINTESTINAL: normal bowel sounds, soft, nondistended. Limited exam as patient cannot move well and she is sitting up in the chair. MUSCULOSKELETAL: generalized weakness. SKIN: warm and dry NEUROLOGIC: CN 2-12 grossly intact. Results & Data Laboratory Results [facility] 11/07/18 06:00 Sodium 139 Potassium 4.6 D Chloride 101 Carbon Dioxide 30 BUN 69 H Creatinine 2.77 H Glucose 98 Calcium 8.6 Medications Administered Current Inpatient Medications Acetaminophen (Tylenol) 1,000 mg PO Q8H [facility] Stop: 12/02/18 08:59 Last Admin: 11/07/18 08:34 Dose: 1,000 mg Albuterol (Duoneb) 3 ml NEB Q2R PRN PRN Reason: SOB, wheezing Stop: 12/03/18 15:26 Aspirin (Ecotrin Ectab) 81 mg PO QAM [facility] Stop: 12/01/18 08:59 Last Admin: 11/07/18 08:32 Dose: 81 mg Bacitracin (Bacitracin) 1 appln TOP DAILY PRN PRN Reason: REMOVAL OF PICC Stop: 11/30/18 17:04 Last Admin: 11/01/18 08:24 Dose: 1 appln Carvedilol (Coreg) 3.125 mg PO HS [facility] Stop: 11/30/18 20:59 Last Admin: 11/06/18 21:34 Dose: 3.125 mg Guaifenesin/Dextromethorphan (Robitussin Cough-Chest Dm) 10 ml PO Q4 PRN PRN Reason: Cough Stop: 11/30/18 17:04 Last Admin: 11/05/18 20:41 Dose: 10 ml Heparin Sodium (Porcine) (Heparin Sodium (Porcine)) 5,000 units SQ Q8 [facility] Stop: 12/01/18 13:59 Last Admin: 11/07/18 05:48 Dose: 5,000 units Hydromorphone HCl (Dilaudid) 0.25 mg IV Q2H PRN PRN Reason: Severe Pain Stop: 11/14/18 18:31 Last Admin: 11/06/18 23:19 Dose: 0.25 mg Hydroxyzine HCl (Vistaril) 10 mg PO Q6H PRN PRN Reason: Itching Stop: 12/03/18 14:30 Last Admin: 11/04/18 20:58 Dose: 10 mg Furosemide 40 mg/ Syringe 4 mls @ 4 mls/min IV QID [facility] Stop: 12/03/18 07:59 Last Admin: 11/07/18 08:31 Dose: 4 mls/min Magnesium Hydroxide (Milk Of Magnesia) 30 ml PO DAILY PRN PRN Reason: Constipation Stop: 11/30/18 17:04 Metolazone (Zaroxolyn) 2.5 mg PO BID@0830,2030 [facility] Stop: 12/03/18 07:29 Last Admin: 11/07/18 09:50 Dose: 2.5 mg Ondansetron HCl (Zofran) 4 mg IV Q6H PRN PRN Reason: Nausea Stop: 11/30/18 23:17 Last Admin: 11/06/18 09:42 Dose: 4 mg Pantoprazole Sodium (Protonix) 40 mg PO QAM [facility] Stop: 12/01/18 08:59 Last Admin: 11/07/18 08:33 Dose: 40 mg Polysaccharide Iron Complex (Niferex-150 W/Vit C Cap) 150 mg PO BID [facility] Stop: 11/30/18 20:59 Last Admin: 11/07/18 08:32 Dose: 150 mg Pravastatin Sodium (Pravachol) 20 mg PO HS [facility] Stop: 11/30/18 20:59 Last Admin: 11/06/18 21:33 Dose: 20 mg Sodium Chloride ([place] Nasal) 1 sprays SARATH QID PRN PRN Reason: Nasal Congestion Stop: 12/04/18 09:35 _ (1) CHF (congestive heart failure) Heart failure chronicity: unspecified Heart failure type: unspecified Qualified Code(s): I50.9 - Heart failure, unspecified
[2018-11-07] MEDS ORDERED: INFLUENZA VACCINE HIGH DOSE 65+ 0.5 ML SYR IM ONE (15:30)
[2018-11-07] MEDS ORDERED: PNEUMOCOCCAL POLYSACCHARIDES 25 MCG/0.5 ML VIAL/SYR IM ONE (15:30)
[2018-11-07] MEDS ORDERED: SODIUM CHLORIDE 0.65% NA SOLN 45 ML (OCEAN) PRN (19:16)
[2018-11-07] MEDS: PRAVASTATIN SOD 20 MG TAB PO SCH (20:56)
[2018-11-07] MEDS: CARVEDILOL 3.125 MG TAB PO SCH (20:59)
[2018-11-08] MEDS: HYDROmorphone INJ 0.5 MG/0.5 ML SYR IV PRN (01:06)
[2018-11-08] MEDS: ACETAMINOPHEN 500 MG TAB PO SCH ×3 (05:35→22:58)
[2018-11-08] MEDS: HEPARIN SOD 5,000 UNIT/0.5 ML VIAL SQ SCH ×3 (05:36→22:08)
[2018-11-08 07:02] LABS: BUN Creatinine Ratio 28.9 (10-20); Calcium 8.9 mg/dl (8.5-10.1); Creatinine Clr Calc Pharmacy 14.8 ml/min; Est GFR (African American) 18.9; Est GFR (Non-African American) 16.3; Potassium 4.1 mmol/L (3.5-5.1)
[2018-11-08] MEDS: IRON POLYSACCHARIDE COMPLEX 150 MG CAPSULE PO SCH ×2 (07:45→20:20)
[2018-11-08] MEDS: FUROSEMIDE 40 MG in SYRINGE 0 ML IV SCH ×4 (07:45→22:08)
[2018-11-08] MEDS: ASPIRIN 81 MG ECTAB PO SCH (07:46)
[2018-11-08] MEDS: PANTOprazole 40 MG TAB PO SCH (08:30)
[2018-11-08] MEDS: metOLazone 2.5 MG TABLET PO SCH ×2 (08:31→20:20)
[2018-11-08] MEDS: MAGNESIUM HYDROXIDE SUSP 30 ML UDC PO PRN ×2 (12:11→22:27)
[2018-11-08] MEDS ORDERED: COUGH DROP (SUGAR FREE) LOZ 24 LOZ/1 BOX BUCCAL ONE (13:35)
[2018-11-08] MEDS ORDERED: COUGH DROP (SUGAR FREE) LOZ 24 LOZ/1 BOX BUCCAL PRN (13:40)
--- NOTE | 2018-11-08 14:05 | Hospitalist Progress Note ---
Date of Service November 08, 2018 Assessment & Plan (1) CHF (congestive heart failure): Acute on chronic right heart failure. Receiving diuretic therapy with furosemide and metoloazone. Improved. (2) Renal insufficiency: Serum creatinine 2.19 day of admission, cristhian as high as 3.74. CKD III with superimposed HANNAH. Nephrology consulted. Creatinine today = 2.52. (3) Anasarca: Receiving diuretic therapy with furosemide and metoloazone. (4) Cough: Congested cough. Afebrile. Check chest x-ray and influenza PCR. (5) DVT prophylaxis: SQ heparin. Ambulate as tolerated. (6) Discharge planning issues: Anticipated need for skilled care. Case Management following. Family Medicine follow-up with Dr. Seymour. Family visiting and given update. Subjective Recheck for multiple medical problems. Patient was seen in her room around 1350. [id number] was visiting. Patient is very fatigued. No fever. Congested cough and mild dyspnea. No chest pain. Appetite fair. No nausea or vomiting. Meade catheter removed. Physical Exam 2 Vital Signs (Past 24 Hours): Last Vital Signs Temp 36.4 C L 11/08/18 11:31 Pulse 60 11/08/18 11:31 Resp 16 11/08/18 11:31 BP 150/50 H 11/08/18 11:31 Pulse Ox 95 11/08/18 11:31 Constitutional: + ill appearing; no acute distress Respiratory: no respiratory distress Auscultation: + rhonchi and + wheezes Cardiovascular: Rate/Rhythm: regular rate and regular rhythm Heart Sounds: + murmur (II/ sys murmur LSB); no gallop and no cardiac rub Vessels: no JVD Extremities: + edema (2+); no calf tenderness Gastrointestinal (Abdomen): normal bowel sounds, soft, nontender, no hepatosplenomegaly Skin: no rashes, warm and dry Psychiatric: Orientation: alert and oriented x 3 Results & Data Laboratory Results Laboratory Results - last 24 hr 11/08/18 06:16 Sodium 137 Potassium 4.1 Chloride 98 Carbon Dioxide 31 Anion Gap 7.0 BUN 73 H Creatinine 2.52 H Est Cr Clr Drug Dosing 14.8 Est GFR ( Amer) 18.9 Est GFR (Non-Af Amer) 16.3 BUN/Creatinine Ratio 28.9 H Glucose 119 H Calcium 8.9 _ (1) CHF (congestive heart failure) Heart failure chronicity: unspecified Heart failure type: unspecified Qualified Code(s): I50.9 - Heart failure, unspecified
--- NOTE | 2018-11-08 14:42 | XRay Report ---
XR chest 1V portable CLINICAL HISTORY: 88 years-old Female presenting with cough. TECHNIQUE: Portable upright AP view of the chest was obtained. COMPARISON: 11/01/2018. FINDINGS: Left subclavian pacer with leads to the right atrium and right ventricular apex. 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 Atherosclerosis of aortic arch. Cardiac silhouette moderately enlarg ed. Heterogeneity of lung parenchyma. Bibasilar hazy opacities with small bilateral layering pleural effusions. No pneumothorax. Degenerative changes of the thoracic spine. Upper abdomen normal. IMPRESSION: 1. Cardiomegaly. No piper volume overload or pulmonary edema. Findings have improved since prior exa m. 2. Bilateral layering pleural effusions and extensive passive atelectasis. Electronically signed by: Benjamin Au M.D. 11/08/2018 2:41 PM
[2018-11-08 18:00] LABS: Influenza A virus by PCR Neg for Influ A (Neg); Influenza B virus by PCR Neg for Influ B (Neg)
--- NOTE | 2018-11-08 18:40 | Nephrology Progress Note ---
Date of Service November 08, 2018 Assessment & Plan (1) Renal insufficiency: baseline creatinine per outside records 1.3-1.5 as of 09/2018; presenting creatinine 2.4, up to 2.7 then peak at 3.4. Cr down to 2.5 today; volume status is improving with net loss over 8.5 kg since admission -Monitor renal function with daily BMP in setting of diuresis (2) Anasarca: from R HF; liver dysfunction likeliest from congestive hepatopathy >> given low plts, anemia/pancytopenia, mild elevation in INR; no nephrotic syndrome. -diuresis in R HF can be challenging: will Continue metolazone 2.5 mg bid and lasix 40 mg qid. Will simplify regimen towards discharge. -cont FR 1.2L and <2 gm daily Na diet -Target net negative 2litres daily. -She will likely need around 100 mg of torsemide daily on discharge Subjective Patient with CKD and volume overload. Patient feels better today. She wants us to remove li citing pain and discomfort. No shortness of breath. She has lost about 8.5 kg since admission. She continues to respond well to diuretics. ROS All other systems were reviewed and negative except as noted in HPI Physical Exam 2 Vital Signs (Past 24 Hours): Last Vital Signs Temp 36.4 C L 11/08/18 15:06 Pulse 62 11/08/18 15:06 Resp 16 11/08/18 15:06 BP 147/71 H 11/08/18 15:06 Pulse Ox 91 11/08/18 15:06 Physical Exam: General exam: Appears comfortable, no acute distress HEENT: Pupils are equal and reactive to light Neck: No JVD, neck is supple trachea is midline Respiratory system: Clear breath sounds bilaterally. Gastrointestinal: Abdomen is soft, non distended, non tender, bowel sounds are present CVS: Regular rate and rhythm. No murmurs, rubs or gallops Musculoskeletal: No joint or muscle tenderness Extremities: Non tender, 2+ edema, peripheral pulses are present Neuro: Oriented, no tremors, no focal neurological deficits Skin: No rashes
[2018-11-08] MEDS: PRAVASTATIN SOD 20 MG TAB PO SCH (20:19)
[2018-11-08] MEDS: CARVEDILOL 3.125 MG TAB PO SCH (20:22)
[2018-11-09] MEDS: HEPARIN SOD 5,000 UNIT/0.5 ML VIAL SQ SCH ×3 (06:06→22:17)
[2018-11-09 06:44] LABS: Hematocrit (blood only) 31.3 % (37-47); Hemoglobin 9.6 g/dL (12.0-16.0); Mean Corpuscular Hgb Conc 30.7 g/dL (32-36); Mean Corpuscular Volume 78.4 fL (80-100); Mean Platelet Volume 10.3 fL (7.4-10.4); Platelet Count 132 K/uL (130-400); RDW Coefficient of Variation 21.5 % (11.5-14.5); RDW Standard Deviation 60.1 fL (36.4-46.3); Red Blood Count 3.99 M/uL (4.2-5.4); White Blood Count 6.27 K/uL (4.8-10.8)
[2018-11-09 07:11] LABS: BUN Creatinine Ratio 34.8 (10-20); Calcium 9.2 mg/dl (8.5-10.1); Creatinine Clr Calc Pharmacy 17.4 ml/min; Est GFR (African American) 22.7; Est GFR (Non-African American) 19.6; Potassium 3.6 mmol/L (3.5-5.1)
[2018-11-09] MEDS: metOLazone 2.5 MG TABLET PO SCH ×2 (07:25→20:05)
[2018-11-09] MEDS: IRON POLYSACCHARIDE COMPLEX 150 MG CAPSULE PO SCH ×2 (09:23→20:05)
[2018-11-09] MEDS: FUROSEMIDE 40 MG in SYRINGE 0 ML IV SCH ×4 (09:23→20:04)
[2018-11-09] MEDS: ASPIRIN 81 MG ECTAB PO SCH (09:23)
[2018-11-09] MEDS: ACETAMINOPHEN 325 MG TAB PO SCH ×2 (09:23→17:33)
[2018-11-09] MEDS: PANTOprazole 40 MG TAB PO SCH (09:23)
--- NOTE | 2018-11-09 10:41 | Nephrology Progress Note ---
Date of Service November 09, 2018 Assessment & Plan (1) Renal insufficiency: baseline creatinine per outside records 1.3-1.5 as of 09/2018; presenting creatinine 2.4, up to 2.7 then peak at 3.4. Cr down to 2.1 today; volume status is improving. Weight today of 75 kg a 2.5 kg increase in 1 day might not to be accurate. Family members looking into rehab choices. They appreciated the progress in terms of diuresis. Try to get standing weights whenever possible. -Monitor renal function with daily BMP in setting of diuresis (2) Anasarca: from R HF; liver dysfunction likeliest from congestive hepatopathy >> given low plts, anemia/pancytopenia, mild elevation in INR; no nephrotic syndrome. -diuresis in R HF can be challenging: will Continue metolazone 2.5 mg bid and lasix 40 mg qid for today. Starting tomorrow morning we will give torsemide 100 mg daily and metolazone 2.5 mg Tuesday. -cont FR 1.2L and <2 gm daily Na diet -Target net negative 2litres daily. Subjective Patient with CKD and volume overload. Patient feels better today. She was sitting up in the chair. Meade catheter was removed yesterday. Son was at the bedside, although with the progress in terms of diuresis. Still making decisions about rehab choices.. No shortness of breath. She continues to respond well to diuretics, today's weight may not be accurate. Still has fatigue ROS All other systems were reviewed and negative except as noted in HPI Physical Exam 2 Vital Signs (Past 24 Hours): Last Vital Signs Temp 36.6 C 11/09/18 06:57 Pulse 62 11/09/18 06:57 Resp 18 11/09/18 06:57 BP 165/78 H 11/09/18 06:57 Pulse Ox 91 11/09/18 06:57 Physical Exam: General exam: Appears comfortable, no acute distress HEENT: Pupils are equal and reactive to light Neck: No JVD, neck is supple trachea is midline Respiratory system: Clear breath sounds bilaterally. Gastrointestinal: Abdomen is soft, non distended, non tender, bowel sounds are present CVS: Regular rate and rhythm. No murmurs, rubs or gallops Musculoskeletal: No joint or muscle tenderness Extremities: Non tender, 2+ edema, peripheral pulses are present Neuro: Oriented, no tremors, no focal neurological deficits Skin: No rashes Results & Data Laboratory Results Creatinine 2.1, BUN of 76
[2018-11-09] MEDS: CARVEDILOL 3.125 MG TAB PO SCH (20:03)
[2018-11-09] MEDS: PRAVASTATIN SOD 20 MG TAB PO SCH (20:04)
--- NOTE | 2018-11-09 20:13 | Hospitalist Progress Note ---
Date of Service November 09, 2018 Assessment & Plan (1) CHF (congestive heart failure): Acute on chronic right heart failure. Receiving diuretic therapy with furosemide and metoloazone. Improved. (2) Renal insufficiency: Serum creatinine 2.19 day of admission, cristhian as high as 3.74. CKD III with superimposed HANNAH. Nephrology consulted. Creatinine today = 2.17. Follow. (3) Anasarca: Receiving diuretic therapy with furosemide and metoloazone. (4) Cough: Congested cough. Afebrile. Chest x-ray 11/08 demonstrated improved pulmonary edema, no infiltrates. Influenza PCR negative. (5) DVT prophylaxis: SQ heparin. Ambulate as tolerated. (6) Discharge planning issues: Anticipated need for skilled care. Case Management following. Family Medicine follow-up with Dr. Seymour. Subjective Recheck for multiple medical problems. Patient was seen in her room around 1999. Feels somewhat better. Out of bed to chair for several hours today. No fever. Occasional cough. No chest pain. Appetite fair. No nausea or vomiting. Voiding without difficulty. Physical Exam 2 Vital Signs (Past 24 Hours): Last Vital Signs Temp 37.1 C 11/09/18 20:00 Pulse 81 11/09/18 20:00 Resp 20 11/09/18 20:00 BP 155/51 H 11/09/18 20:00 Pulse Ox 92 11/09/18 20:00 Constitutional: no acute distress Respiratory: no respiratory distress Auscultation: + rhonchi and + wheezes Cardiovascular: Rate/Rhythm: regular rate and regular rhythm Heart Sounds: + murmur (II/ sys murmur LSB); no gallop and no cardiac rub Vessels: no JVD Extremities: + edema (2+); no calf tenderness Gastrointestinal (Abdomen): normal bowel sounds, soft, nontender, no hepatosplenomegaly Skin: no rashes, warm and dry Psychiatric: Orientation: alert Results & Data Laboratory Results Short CBC 11/09/18 Range/Units 06:28 WBC 6.27 (4.8-10.8) K/uL Hgb 9.6 L (12.0-16.0) g/dL Hct 31.3 L (37-47) % Plt Count 132 (130-400) K/uL BMP 11/09/18 06:28 Sodium 136 Potassium 3.6 Chloride 98 Carbon Dioxide 33 H BUN 76 H Creatinine 2.17 H D Glucose 122 H Calcium 9.2 _ (1) CHF (congestive heart failure) Heart failure chronicity: unspecified Heart failure type: unspecified Qualified Code(s): I50.9 - Heart failure, unspecified
[2018-11-10] MEDS: ACETAMINOPHEN 325 MG TAB PO SCH ×3 (01:07→16:20)
[2018-11-10] MEDS ORDERED: LEVALBUTEROL HCL 0.63 MG/3 ML NEB NEB PRN (02:58)
[2018-11-10 06:11] LABS: Hematocrit (blood only) 28.1 % (37-47); Hemoglobin 8.6 g/dL (12.0-16.0); Mean Corpuscular Hgb Conc 30.6 g/dL (32-36); Mean Corpuscular Volume 78.1 fL (80-100); Mean Platelet Volume 9.6 fL (7.4-10.4); Platelet Count 116 K/uL (130-400); RDW Coefficient of Variation 21.6 % (11.5-14.5); RDW Standard Deviation 60.3 fL (36.4-46.3); White Blood Count 5.43 K/uL (4.8-10.8)
[2018-11-10 06:39] LABS: BUN Creatinine Ratio 33.2 (10-20); Calcium 8.7 mg/dl (8.5-10.1); Est GFR (African American) 21.9; Est GFR (Non-African American) 18.9; Potassium 3.1 mmol/L (3.5-5.1)
[2018-11-10] MEDS ORDERED: POTASSIUM CHLORIDE 10 MEQ TABCR PO ONE (07:00)
[2018-11-10] MEDS: IRON POLYSACCHARIDE COMPLEX 150 MG CAPSULE PO SCH ×2 (08:22→19:54)
[2018-11-10] MEDS: PANTOprazole 40 MG TAB PO SCH (08:22)
[2018-11-10] MEDS: ASPIRIN 81 MG ECTAB PO SCH (08:22)
[2018-11-10] MEDS: metOLazone 2.5 MG TABLET PO SCH (08:22)
[2018-11-10] MEDS: FUROSEMIDE 40 MG in SYRINGE 0 ML IV SCH (08:22)
[2018-11-10] MEDS: HEPARIN SOD 5,000 UNIT/0.5 ML VIAL SQ SCH ×2 (08:23→19:57)
[2018-11-10] MEDS ORDERED: POTASSIUM CHLORIDE 20 MEQ TABCR PO STA (08:38)
[2018-11-10] MEDS: TORSEMIDE 20 MG TAB PO SCH (10:17)
--- NOTE | 2018-11-10 10:44 | Nephrology Progress Note ---
Date of Service November 10, 2018 Assessment & Plan (1) Renal insufficiency: baseline creatinine per outside records 1.3-1.5 as of 09/2018; presenting creatinine 2.4, peak at 3.4. Cr stable at 2.2 today; volume status is improving. Weight today of 73.5kg. Try to get standing weights whenever possible. -Monitor renal function with daily BMP in setting of diuresis (2) Anasarca: from R HF; liver dysfunction likeliest from congestive hepatopathy >> given low plts, anemia/pancytopenia, mild elevation in INR; no nephrotic syndrome. -Will reduce diuretics dose: metolazone 2.5 mg daily and torsemide 100mg mg daily. -cont FR 1.2L and <2 gm daily Na diet -Target net negative 1-2litres daily. (3) Anemia of renal disease: Hb 8.6 today. Recent iron sats of 20. Will start ferrous sulphate 325mg po bid. She might epogen at some point Subjective Patient with CKD and volume overload. Patient feels better today. Complaining of abdominal distension. No shortness of breath. She continues to respond well to diuretics, weight down to 73.5kg today. Still has fatigue, unable to ambulate. Review of Systems All systems reviewed & are unremarkable except as noted in HPI & below Physical Exam 2 Vital Signs (Past 24 Hours): Last Vital Signs Temp 36.7 C 11/10/18 07:17 Pulse 73 11/10/18 07:17 Resp 19 11/10/18 07:17 BP 156/71 H 11/10/18 07:17 Pulse Ox 91 11/10/18 07:17 Physical Exam: General exam: Appears comfortable, no acute distress HEENT: Pupils are equal and reactive to light Neck: No JVD, neck is supple trachea is midline Respiratory system: Clear breath sounds bilaterally. Gastrointestinal: Abdomen is soft, non distended, non tender, bowel sounds are present CVS: Regular rate and rhythm. No murmurs, rubs or gallops Musculoskeletal: No joint or muscle tenderness Extremities: Non tender, 2+ edema, peripheral pulses are present Neuro: Oriented, no tremors, no focal neurological deficits Skin: Chronic venous stasis changes in the legs Results & Data Laboratory Results k is 3.1 and cr stable at 2.2. hb 8.6
[2018-11-10] MEDS: hydrOXYzine HCl 10 MG TAB PO PRN (11:40)
[2018-11-10] MEDS: FERROUS SULFATE 325 MG TAB PO SCH (16:21)
[2018-11-10] MEDS: PRAVASTATIN SOD 20 MG TAB PO SCH (19:54)
[2018-11-10] MEDS: CARVEDILOL 3.125 MG TAB PO SCH (19:55)
--- NOTE | 2018-11-10 20:04 | Hospitalist Progress Note ---
Date of Service November 10, 2018 Assessment & Plan (1) CHF (congestive heart failure): Acute on chronic right heart failure. Received diuretic therapy with IV furosemide and metoloazone with improvement. Weight down about 9 kg. Transitioned to metoloazone 2.5 mg daily + torsemide 100 mg daily. (2) Anasarca: Diuretic therapy as noted above. (3) Renal insufficiency: Serum creatinine 2.19 day of admission, cristhian as high as 3.74. CKD III with superimposed HANNAH. Nephrology consulted. Creatinine today = 2.23. Follow. (4) Cough: Congested cough. Afebrile. Chest x-ray 11/08 demonstrated improved pulmonary edema, no infiltrates. Influenza PCR negative. (5) DVT prophylaxis: SQ heparin. Ambulate as tolerated. (6) Discharge planning issues: Anticipated need for skilled care. Case Management following. Family Medicine follow-up with Dr. Seymour. Subjective Recheck for multiple medical problems. Patient was seen in her room around 1945. [id number] visiting. Tired. No fever. Occasional cough. No chest pain. Appetite fair. No nausea or vomiting. Voiding without difficulty. Physical Exam 2 Vital Signs (Past 24 Hours): Last Vital Signs Temp 36.5 C 11/10/18 19:41 Pulse 60 11/10/18 19:41 Resp 17 11/10/18 19:41 BP 121/47 L 11/10/18 19:41 Pulse Ox 93 11/10/18 19:41 Constitutional: + ill appearing; no acute distress Respiratory: no respiratory distress Auscultation: + rhonchi Cardiovascular: Rate/Rhythm: regular rate and regular rhythm Heart Sounds: + murmur (II/ sys murmur LSB); no gallop and no cardiac rub Vessels: no JVD Extremities: + edema (1-2+); no calf tenderness Gastrointestinal (Abdomen): normal bowel sounds, soft, nontender, no hepatosplenomegaly Skin: no rashes, warm and dry Psychiatric: Orientation: alert and oriented x 3 Results & Data Laboratory Results Short CBC 11/10/18 Range/Units 05:48 WBC 5.43 (4.8-10.8) K/uL Hgb 8.6 L (12.0-16.0) g/dL Hct 28.1 L (37-47) % Plt Count 116 L (130-400) K/uL [facility] 11/10/18 05:48 Sodium 137 Potassium 3.1 L Chloride 97 L Carbon Dioxide 35 H BUN 74 H Creatinine 2.23 H Glucose 104 H Calcium 8.7 _ (1) CHF (congestive heart failure) Heart failure chronicity: unspecified Heart failure type: unspecified Qualified Code(s): I50.9 - Heart failure, unspecified
[2018-11-11] MEDS: ACETAMINOPHEN 325 MG TAB PO SCH ×3 (01:23→16:05)
[2018-11-11 07:32] LABS: BUN Creatinine Ratio 31.8 (10-20); Calcium 8.5 mg/dl (8.5-10.1); Creatinine Clr Calc Pharmacy 15.8 ml/min; Est GFR (African American) 20.5; Est GFR (Non-African American) 17.7; Potassium 3.4 mmol/L (3.5-5.1)
--- NOTE | 2018-11-11 09:06 | Nephrology Progress Note ---
Date of Service November 11, 2018 Assessment & Plan (1) Renal insufficiency: baseline creatinine per outside records 1.3-1.5 as of 09/2018; presenting creatinine 2.4, peak at 3.4. First standing wt from 11/04 was 79.4kg. Cr slightly up to 2.4 today; volume status is improving. Weight today of 73.3kg > 72.9. Try to get standing weights whenever possible. -Monitor renal function with daily BMP in setting of diuresis (2) Anasarca: from R HF; liver dysfunction likeliest from congestive hepatopathy >> given low plts, anemia/pancytopenia, mild elevation in INR; no nephrotic syndrome. CXR 11/08 still w/ layering effusions/passive atelectasis but improved / resolved plm edema -as of yesterday on reduced diuretics dose: metolazone 2.5 mg daily and torsemide 100mg mg daily. -cont FR 1.2L and <2 gm daily Na diet -Target net negative 1-1.5 liters daily. -started her on daily po K supplement 20 MEq (3) Anemia of renal disease: Hb 8.6 yesterday. Recent iron sats of 20. Started ferrous sulfate 325mg po bid on 11/10. could consider epogen at some point -recheck cbc tomorrow ordered Subjective states "I'm doing badly" -- struggles to say why at first; then states legs itch. c/o dry mouth not relieved by hard candy or cough drops. +generalized weakness denies sob. does not notice/bothered by cough. no chest pain; does not notice change in edema. no n/v/d/c; no dysuria/gross hematuria. no rash. no acute vision changes/unchanged hearing problems. no f/c. Physical Exam 2 Vital Signs (Past 24 Hours): Last Vital Signs Temp 36.6 C 11/11/18 06:53 Pulse 75 11/11/18 06:53 Resp 20 11/11/18 06:53 BP 129/65 11/11/18 06:53 Pulse Ox 94 11/11/18 06:53 Constitutional: well developed and well nourished very hard of hearing, sitting in chair wrapped in blankets on RA NAD Eyes: EOM intact bilaterally ENMT: Ears: no external ear abnormality Nose: no external nose abnormality Mouth: + dry oral mucous membranes Neck: no nuchal rigidity Respiratory: no respiratory distress Auscultation: + diminished lung sounds hacking thick cough multiple times in exam Cardiovascular: Rate/Rhythm: regular rate and regular rhythm Extremities: + edema (1-2+) Gastrointestinal (Abdomen): Inspection/Auscultation: + abdomen distended and normal bowel sounds Percussion/Palpation: abdomen nontender Musculoskeletal: Extremities: + muscle atrophy; no cyanosis and no petechiae Skin: no rashes Neurologic: awake Motor/Sensory: normal movement Psychiatric: A+Ox3, euthymic affect Orientation: cooperative Eye Contact : good eye contact Motor Behavior: no abnormal motor movements and + psychomotor retardation Speech: normal rate/rhythm/volume of speech Affect : + flat affect Genitourinary: no li Results & Data Laboratory Results Abnormal lab results 11/11/18 Range/Units 06:41 Potassium 3.4 L (3.5-5.1) mmol/L Chloride 97 L (98-107) mmol/L BUN 75 H (7-18) mg/dl Creatinine 2.36 H (0.6-1.2) mg/dl BUN/Creatinine Ratio 31.8 H (10-20) Glucose 106 H (70-99) mg/dl
[2018-11-11] MEDS: TORSEMIDE 20 MG TAB PO SCH (09:38)
[2018-11-11] MEDS: FERROUS SULFATE 325 MG TAB PO SCH ×2 (09:38→16:05)
[2018-11-11] MEDS: ASPIRIN 81 MG ECTAB PO SCH (09:39)
[2018-11-11] MEDS: HEPARIN SOD 5,000 UNIT/0.5 ML VIAL SQ SCH ×2 (09:39→22:29)
[2018-11-11] MEDS: IRON POLYSACCHARIDE COMPLEX 150 MG CAPSULE PO SCH ×2 (09:39→22:29)
[2018-11-11] MEDS: PANTOprazole 40 MG TAB PO SCH (09:39)
[2018-11-11] MEDS: metOLazone 2.5 MG TABLET PO SCH (09:40)
[2018-11-11] MEDS: BACITRACIN OINT 15 GM TUBE TOP PRN (10:42)
[2018-11-11] MEDS: hydrOXYzine HCl 10 MG TAB PO PRN (13:58)
[2018-11-11] MEDS: POTASSIUM CHLORIDE PWD 20 MEQ PACK PO SCH (16:06)
[2018-11-11] MEDS ORDERED: hydrOXYzine HCl 10 MG TAB PO ONE (16:28)
--- NOTE | 2018-11-11 16:29 | Hospitalist Progress Note ---
Date of Service November 11, 2018 Assessment & Plan (1) CHF (congestive heart failure): Acute on chronic right heart failure. Received diuretic therapy with IV furosemide and metoloazone with improvement. Weight down 82.1 kg --> 72.9 kg. Transitioned to metoloazone 2.5 mg daily + torsemide 100 mg daily. (2) Anasarca: Diuretic therapy as noted above. (3) Renal insufficiency: Serum creatinine 2.19 day of admission, cristhian as high as 3.74. CKD III with superimposed HANNAH. Nephrology consulted. Creatinine today = 2.36. Follow. (4) Hypokalemia: K as low as 3.0. K today = 3.4. Replace. Follow. (5) Hypertension: BP this morning = 129/65. Continue carvedilol and diuretics. (6) Cough: Congested cough. Afebrile. Chest x-ray 11/08 demonstrated improved pulmonary edema, no infiltrates. Influenza PCR negative. (7) DVT prophylaxis: SQ heparin. Ambulate as tolerated. (8) Discharge planning issues: Anticipated need for skilled care. Case Management following. Family Medicine follow-up with Dr. Seymour. Subjective Recheck for multiple medical problems. Patient was seen in her room around 1600. Ongoing malaise. No fever. Cough improved. No chest pain. Appetite fair. No nausea or vomiting. No diarrhea. Voiding without difficulty. Physical Exam 2 Vital Signs (Past 24 Hours): Last Vital Signs Temp 36.4 C L 11/11/18 15:23 Pulse 60 11/11/18 15:23 Resp 24 11/11/18 15:23 BP 134/47 L 11/11/18 15:23 Pulse Ox 94 11/11/18 15:23 Constitutional: + ill appearing; no acute distress Respiratory: no respiratory distress Auscultation: + rhonchi (few) Cardiovascular: Rate/Rhythm: regular rate and regular rhythm Heart Sounds: + murmur (II/ sys murmur LSB); no gallop and no cardiac rub Vessels: no JVD Extremities: + edema (1-2+); no calf tenderness Gastrointestinal (Abdomen): normal bowel sounds, soft, nontender, no hepatosplenomegaly Skin: no rashes, warm and dry Psychiatric: Orientation: alert and oriented x 3 _ (1) CHF (congestive heart failure) Heart failure chronicity: unspecified Heart failure type: unspecified Qualified Code(s): I50.9 - Heart failure, unspecified
[2018-11-11] MEDS: HYDROmorphone INJ 0.5 MG/0.5 ML SYR IV PRN (16:43)
[2018-11-11] MEDS: PRAVASTATIN SOD 20 MG TAB PO SCH (22:29)
[2018-11-11] MEDS: CARVEDILOL 3.125 MG TAB PO SCH (22:29)
[2018-11-12] MEDS: ACETAMINOPHEN 325 MG TAB PO SCH ×3 (01:01→15:36)
[2018-11-12] MEDS: hydrOXYzine HCl 10 MG TAB PO PRN ×3 (02:29→18:12)
[2018-11-12 07:02] LABS: Hematocrit (blood only) 27.7 % (37-47); Hemoglobin 8.5 g/dL (12.0-16.0); Mean Corpuscular Hgb Conc 30.7 g/dL (32-36); Mean Corpuscular Volume 78.7 fL (80-100); Mean Platelet Volume 9.8 fL (7.4-10.4); Platelet Count 112 K/uL (130-400); RDW Coefficient of Variation 22.4 % (11.5-14.5); RDW Standard Deviation 61.4 fL (36.4-46.3); Red Blood Count 3.52 M/uL (4.2-5.4); White Blood Count 5.97 K/uL (4.8-10.8)
[2018-11-12] MEDS: HEPARIN SOD 5,000 UNIT/0.5 ML VIAL SQ SCH (07:31)
[2018-11-12 07:35] LABS: BUN Creatinine Ratio 33.5 (10-20); Calcium 8.6 mg/dl (8.5-10.1); Creatinine Clr Calc Pharmacy 17.1 ml/min; Est GFR (African American) 22.5; Est GFR (Non-African American) 19.5; Potassium 3.4 mmol/L (3.5-5.1)
[2018-11-12] MEDS: TORSEMIDE 20 MG TAB PO SCH (08:46)
[2018-11-12] MEDS: metOLazone 2.5 MG TABLET PO SCH (08:46)
[2018-11-12] MEDS: FERROUS SULFATE 325 MG TAB PO SCH ×2 (08:46→15:36)
[2018-11-12] MEDS: IRON POLYSACCHARIDE COMPLEX 150 MG CAPSULE PO SCH ×2 (08:47→22:26)
[2018-11-12] MEDS: POTASSIUM CHLORIDE PWD 20 MEQ PACK PO SCH (08:47)
[2018-11-12] MEDS: PANTOprazole 40 MG TAB PO SCH (08:48)
--- NOTE | 2018-11-12 09:00 | Hospitalist Progress Note ---
Date of Service November 12, 2018 Assessment & Plan (1) CHF (congestive heart failure): Acute on chronic right heart failure. Received diuretic therapy with IV furosemide and metoloazone with improvement. Weight down 82.1 kg --> 72.6 kg. Transitioned to metoloazone 2.5 mg daily + torsemide 100 mg daily. (2) Anasarca: Diuretic therapy as noted above. (3) Renal insufficiency: Serum creatinine 2.19 day of admission, cristhian as high as 3.74. CKD III with superimposed HANNAH. Nephrology consulted. Creatinine today = 2.18. Follow. (4) Hypokalemia: K as low as 3.0. K today = 3.4. Replace. Liberalize K restriction in diet. Follow. (5) Hypertension: BP this morning = 139/60. Continue carvedilol and diuretics. Follow and titrate Rx. (6) Cough: Congested cough. Afebrile. Chest x-ray 11/08 demonstrated improved pulmonary edema, no infiltrates. Influenza PCR negative. (7) Hematuria: Hold aspirin and SQ heparin. Check UA with C&S if indicated. (8) DVT prophylaxis: Received SQ heparin. Now with hematuria. Hold heparin. SCD's. Ambulate as tolerated. (9) Discharge planning issues: Anticipated need for skilled care. Case Management following. Family Medicine follow-up with Dr. Seymour. Subjective Recheck for multiple medical problems. Patient was seen in her room around 0900. Ongoing malaise. No fever. Intermittent cough. No SOB at rest. No chest pain. Appetite fair. No nausea or vomiting. No diarrhea. Noted to have hematuria this morning. Complains of severe itching of her legs, apparently a chroni problem. Physical Exam 2 Vital Signs (Past 24 Hours): Last Vital Signs Temp 36.7 C 11/12/18 08:00 Pulse 68 11/12/18 08:00 Resp 21 11/12/18 08:00 BP 139/60 11/12/18 08:00 Pulse Ox 95 11/12/18 08:00 Constitutional: + ill appearing; no acute distress Respiratory: no respiratory distress Auscultation: + rhonchi (few, scattered) Cardiovascular: Rate/Rhythm: regular rate and regular rhythm Heart Sounds: + murmur (II/ sys murmur LSB); no gallop and no cardiac rub Vessels: no JVD Extremities: + edema (1-2+); no calf tenderness Gastrointestinal (Abdomen): normal bowel sounds, soft, nontender, no hepatosplenomegaly Skin: + rash (venous stasis dermatitis lower extremities below knees) Psychiatric: Orientation: alert and oriented x 3 Results & Data Laboratory Results Short CBC 11/12/18 Range/Units 06:44 WBC 5.97 (4.8-10.8) K/uL Hgb 8.5 L (12.0-16.0) g/dL Hct 27.7 L (37-47) % Plt Count 112 L (130-400) K/uL BMP 11/12/18 06:44 Sodium 137 Potassium 3.4 L Chloride 96 L Carbon Dioxide 34 H BUN 73 H Creatinine 2.18 H Glucose 92 Calcium 8.6 Urine 11/12/18 Range/Units 09:05 Urine Color Red Urine Appearance Cloudy H (Clear) Urine pH 7.0 (4.5-7.5) Ur Specific [place] 1.010 (1.000-1.030) Urine Protein 1+ H (Negative) Urine Glucose (UA) Negative (Negative) _ (1) CHF (congestive heart failure) Heart failure chronicity: unspecified Heart failure type: unspecified Qualified Code(s): I50.9 - Heart failure, unspecified
[2018-11-12 09:41] LABS: Appearance Urine Cloudy (Clear); Bilirubin Urine Negative (Negative); Blood Urine 3+ (Negative); Color Urine Red; Glucose Urine UA Negative (Negative); Ketones Urine Negative (Negative); Leukocyte Esterase Urine 1+ (Negative); Nitrite Urine Positive (Negative); Protein Urine 1+ (Negative); Urobilinogen Urine Negative (Negative)
[2018-11-12 09:53] LABS: RBC Urine >30 /hpf (0-4); WBC Urine >30 /hpf (0-5)
[2018-11-12 09:54] LABS: Bacteria Urine 2+ (Negative)
[2018-11-12] MEDS: TRIAMCINOLONE ACET 0.5% CR 15 GM TUBE EXT SCH ×2 (11:56→22:25)
[2018-11-12] MEDS: cefTRIAXone SODIUM 1,000 MG in DEXTROSE 5% 50 ML IV SCH (22:13)
[2018-11-12] MEDS: HYDROmorphone INJ 0.5 MG/0.5 ML SYR IV PRN (22:22)
[2018-11-12] MEDS: CARVEDILOL 3.125 MG TAB PO SCH (22:25)
[2018-11-12] MEDS: PRAVASTATIN SOD 20 MG TAB PO SCH (22:25)
[2018-11-13] MEDS: ACETAMINOPHEN 325 MG TAB PO SCH ×3 (01:25→16:45)
[2018-11-13] MEDS: ONDANSETRON INJ 2 MG/ML 2 ML VIAL IV PRN (03:50)
--- NOTE | 2018-11-13 07:05 | Nephrology Progress Note ---
Date of Service November 13, 2018 Assessment & Plan (1) Renal insufficiency: baseline creatinine per outside records 1.3-1.5 as of 09/2018; presenting creatinine 2.4, peak at 3.4. First standing wt from 11/04 was 79.4kg. Cr basically plateau'd at 2.2-2.4 since 11/09; today 2.2; volume status is improving. Weight steady 72.6 kg. Try to get standing weights whenever possible. -Monitor renal function with daily BMP in setting of diuresis -f/u today's labs whics show stable renal function -stopped metolazone d/t a few episodes of htn past 24 hrs; and put hold parameter on torsemide -will need f/u appt in CKD clinic in one month w/ or charis; will need bmp weekly (not tuesday) and daily standing wt, FR and Na R as she has had in house (2) Anasarca: from R HF; liver dysfunction likeliest from congestive hepatopathy >> given low plts, anemia/pancytopenia, mild elevation in INR; no nephrotic syndrome. CXR 11/08 still w/ layering effusions/passive atelectasis but improved / resolved plm edema -as of yesterday on reduced diuretics dose: metolazone 2.5 mg daily and torsemide 100mg mg daily. -cont FR 1.2L and <2 gm daily Na diet -Target net negative 1-1.5 liters daily. -cont daily po K supplement [address] Littlejohn stopped renal diet (3) Anemia of renal disease: Hb 8.6 yesterday. Recent iron sats of 20. Started ferrous sulfate 325mg po bid on 11/10. could consider epogen at some point -recheck cbc 11/14 ordered Subjective had gross hematuria yesterday; ua concerning for uti; on ceftriaxone; cx in proc ; some intermittent hypontesion and slept most of day -- did have dilaudid ON one dose no c/o pain except BL distal legs; denies voiding concerns; + ongoing cough; no sob. no n/v. not very hungry. BLE distal rash/scale. Physical Exam 2 Vital Signs (Past 24 Hours): Last Vital Signs Temp 36.4 C L 11/13/18 03:39 Pulse 78 11/13/18 03:39 Resp 18 11/13/18 03:39 BP 137/48 L 11/13/18 03:39 Pulse Ox 91 11/13/18 03:39 Constitutional: well developed and well nourished lying flat on RA, interactive Eyes: EOM intact bilaterally ENMT: Ears: no external ear abnormality Nose: no external nose abnormality Mouth: + dry oral mucous membranes [place] Neck: no nuchal rigidity Respiratory: no respiratory distress Auscultation: + diminished lung sounds Cardiovascular: Rate/Rhythm: regular rate and regular rhythm Extremities: + edema (1+) Gastrointestinal (Abdomen): Inspection/Auscultation: normal bowel sounds; abdomen not distended Percussion/Palpation: abdomen nontender Musculoskeletal: Extremities: + muscle atrophy; no cyanosis and no petechiae Skin: + rash (excoriations scale distal BLE) Neurologic: awake Motor/Sensory: normal movement Psychiatric: A+Ox3, euthymic affect Orientation: cooperative Eye Contact : good eye contact Motor Behavior: no abnormal motor movements and + psychomotor retardation Speech: normal rate/rhythm/volume of speech Affect : + flat affect Results & Data Laboratory Results Abnormal lab results 11/13/18 Range/Units 06:33 Sodium 135 L (136-145) mmol/L Chloride 96 L (98-107) mmol/L Carbon Dioxide 33 H (21-32) mmol/L BUN 75 H (7-18) mg/dl Creatinine 2.35 H (0.6-1.2) mg/dl BUN/Creatinine Ratio 31.9 H (10-20) Glucose 110 H (70-99) mg/dl Diagnostic Findings GNR x 2 types on urine cx
[2018-11-13 08:01] LABS: BUN Creatinine Ratio 31.9 (10-20); Calcium 8.5 mg/dl (8.5-10.1); Creatinine Clr Calc Pharmacy 15.8 ml/min; Est GFR (African American) 20.6; Est GFR (Non-African American) 17.8; Potassium 4.1 mmol/L (3.5-5.1)
[2018-11-13] MEDS: metOLazone 2.5 MG TABLET PO SCH (08:22)
[2018-11-13] MEDS: FERROUS SULFATE 325 MG TAB PO SCH ×2 (08:23→16:45)
[2018-11-13] MEDS: TORSEMIDE 20 MG TAB PO SCH (08:23)
[2018-11-13] MEDS: IRON POLYSACCHARIDE COMPLEX 150 MG CAPSULE PO SCH ×2 (08:23→20:59)
[2018-11-13] MEDS: PANTOprazole 40 MG TAB PO SCH (08:23)
[2018-11-13] MEDS: POTASSIUM CHLORIDE PWD 20 MEQ PACK PO SCH (08:24)
[2018-11-13] MEDS: TRIAMCINOLONE ACET 0.5% CR 15 GM TUBE EXT SCH ×2 (08:24→20:58)
--- NOTE | 2018-11-13 12:17 | Hospitalist Progress Note ---
Date of Service November 13, 2018 Assessment & Plan (1) CHF (congestive heart failure): Acute on chronic right heart failure. Received diuretic therapy with IV furosemide and metoloazone with improvement. Weight down 82.1 kg --> 72.6 kg. Transitioned to metoloazone 2.5 mg daily + torsemide 100 mg daily. (2) Anasarca: Diuretic therapy as noted above. (3) Renal insufficiency: Serum creatinine 2.19 day of admission, cristhian as high as 3.74. CKD III with superimposed HANNAH. Nephrology consulted. Creatinine today = 2.35. Follow. (4) Hypokalemia: K as low as 3.0. K today = 4.1. Replace. Liberalize K restriction in diet. Follow. (5) Hypertension: BP this morning = 123/52 Continue carvedilol and diuretics. Follow and titrate Rx. (6) Cough: Congested cough. Afebrile. Chest x-ray 11/08 demonstrated improved pulmonary edema, no infiltrates. Influenza PCR negative. (7) Hematuria: Hold aspirin and SQ heparin. UA showed WBC's and bacteria. Urine culture pending. Stated on IV ceftriaxone. (8) Anemia: Probably multifactorial, anemia of chronic kidney disease and other factors. Follow. (9) DVT prophylaxis: Received SQ heparin. Now with hematuria. Hold heparin. SCD's. Ambulate as tolerated. (10) Discharge planning issues: Anticipated need for skilled care. Case Management following. Family Medicine follow-up with Dr. Seymour. Subjective Recheck for multiple medical problems. Patient was seen in her room around 0940. Tires very easily. No fever. Intermittent cough. No chest pain. Appetite fair. No nausea or vomiting. No diarrhea. Noted to have hematuria this morning. Itching of legs improved. Physical Exam 2 Vital Signs (Past 24 Hours): Last Vital Signs Temp 36.3 C L 11/13/18 11:40 Pulse 61 11/13/18 11:40 Resp 16 11/13/18 11:40 BP 137/55 L 11/13/18 11:40 Pulse Ox 93 11/13/18 11:40 Constitutional: + ill appearing; no acute distress Respiratory: no respiratory distress Auscultation: + rhonchi (few, scattered) Cardiovascular: Rate/Rhythm: regular rate and regular rhythm Heart Sounds: + murmur (II/ sys murmur LSB); no gallop and no cardiac rub Vessels: no JVD Extremities: + edema (1+); no calf tenderness Gastrointestinal (Abdomen): normal bowel sounds, soft, nontender, no hepatosplenomegaly Skin: no rashes, warm and dry + rash (venous stasis dermatitis lower extremities below knees) Psychiatric: Orientation: alert and oriented x 3 Results & Data Laboratory Results [facility] 11/13/18 06:33 Sodium 135 L Potassium 4.1 D Chloride 96 L Carbon Dioxide 33 H BUN 75 H Creatinine 2.35 H Glucose 110 H Calcium 8.5 _ (1) CHF (congestive heart failure) Heart failure chronicity: unspecified Heart failure type: unspecified Qualified Code(s): I50.9 - Heart failure, unspecified
[2018-11-13] MEDS: cefTRIAXone SODIUM 1,000 MG in DEXTROSE 5% 50 ML IV SCH (20:56)
[2018-11-13] MEDS: CARVEDILOL 3.125 MG TAB PO SCH (20:57)
[2018-11-13] MEDS: PRAVASTATIN SOD 20 MG TAB PO SCH (20:58)
[2018-11-14] MEDS: ACETAMINOPHEN 325 MG TAB PO SCH ×3 (00:31→18:30)
[2018-11-14 06:28] LABS: Basophils # (auto) 0.03 K/uL (0-0.2); Basophils % (auto) 0.5 %; Eosinophils # (auto) 0.32 K/uL (0-0.5); Eosinophils % (auto) 5.9 %; Hematocrit (blood only) 28.4 % (37-47); Hemoglobin 8.5 g/dL (12.0-16.0); Immature Granulocytes # (auto) 0.01 K/uL (0.00-0.02); Immature Granulocytes % (auto) 0.2 %; Lymphocytes # (auto) 0.78 K/uL (1.2-3.4); Lymphocytes % (auto) 14.3 %; Mean Corpuscular Hgb Conc 29.9 g/dL (32-36); Mean Corpuscular Volume 81.1 fL (80-100); Mean Platelet Volume 10.5 fL (7.4-10.4); Monocytes # (auto) 0.79 K/uL (0.11-0.59); Monocytes % (auto) 14.5 %; Neutrophils # (auto) 3.53 K/uL (1.4-6.5); Neutrophils % (auto) 64.6 %; Platelet Count 114 K/uL (130-400); RDW Coefficient of Variation 23.4 % (11.5-14.5); RDW Standard Deviation 66.8 fL (36.4-46.3); White Blood Count 5.46 K/uL (4.8-10.8)
[2018-11-14 06:59] LABS: Anisocytosis Present; Microcytosis Present
[2018-11-14 07:00] LABS: BUN Creatinine Ratio 28.4 (10-20); Calcium 8.5 mg/dl (8.5-10.1); Creatinine Clr Calc Pharmacy 13.7 ml/min; Est GFR (African American) 17.3; Est GFR (Non-African American) 14.9; Potassium 3.9 mmol/L (3.5-5.1)
[2018-11-14] MEDS: IRON POLYSACCHARIDE COMPLEX 150 MG CAPSULE PO SCH ×2 (07:34→20:42)
[2018-11-14] MEDS: PANTOprazole 40 MG TAB PO SCH (07:34)
[2018-11-14] MEDS: POTASSIUM CHLORIDE PWD 20 MEQ PACK PO SCH (07:34)
[2018-11-14] MEDS: FERROUS SULFATE 325 MG TAB PO SCH ×2 (07:34→18:30)
[2018-11-14] MEDS: TORSEMIDE 20 MG TAB PO SCH (07:36)
[2018-11-14] MEDS: TRIAMCINOLONE ACET 0.5% CR 15 GM TUBE EXT SCH ×2 (07:37→20:43)
--- NOTE | 2018-11-14 08:42 | Nephrology Progress Note ---
Date of Service November 14, 2018 Assessment & Plan (1) Renal insufficiency: baseline creatinine per outside records 1.3-1.5 as of 09/2018; presenting creatinine 2.4, peak at 3.4. First standing wt from 11/04 was 79.4kg. Cr basically plateau'd at 2.2-2.4 since 11/09; today 2.2; volume status is improving. Weight steady 72.6 kg. Try to get standing weights whenever possible. -note she's not done standing wts for a few days -- ? if able -Monitor renal function with daily BMP in setting of diuresis -today's labs w/ worsened renal function: creat 2.4>2.7 >>>? d/t diminished po w/ decreased MS yesterday and w/ UTI -stopped metolazone yesterday; pt has hold parameter on torsemide which should continue -will need f/u appt in CKD clinic in one month w/ me or mukaya; will need bmp weekly (not tuesday) and daily standing wt, FR and Na R as she has had in house at d/c (2) Anasarca: from R HF; liver dysfunction likeliest from congestive hepatopathy >> given low plts, anemia/pancytopenia, mild elevation in INR; no nephrotic syndrome. CXR 11/08 still w/ layering effusions/passive atelectasis but improved / resolved plm edema -on reduced diuretics dose: torsemide 100mg mg daily. -cont FR 1.2L and <2 gm daily Na diet -cont daily po K supplement 20 MEq AND non renal diet (3) Anemia of renal disease: Hb 8.5 today. Recent iron sats of 20. Started ferrous sulfate 325mg po bid on 11/10. could consider epogen at some point but not now; no IV iron w/ question of active infection Subjective seen on rounds this am at 0900. c/o fatigue, dysuria. poorer po documented past 24 hrs intake. ongoing thick cough. no sob, stable edema, no chest pain, no n/v/d, no focal weakness/numbness, no palpitations Physical Exam 2 Vital Signs (Past 24 Hours): Last Vital Signs Temp 36.3 C L 11/14/18 07:39 Pulse 63 11/14/18 07:39 Resp 19 11/14/18 07:39 BP 132/43 L 11/14/18 07:39 Pulse Ox 90 11/14/18 07:39 Constitutional: well developed, well nourished and + lethargic wakens fully but tired/limbs heavy, on 02nc, thick heavy cough in exam Eyes: EOM intact bilaterally ENMT: Ears: no external ear abnormality Nose: no external nose abnormality Mouth: + dry oral mucous membranes Neck: no nuchal rigidity Respiratory: no respiratory distress Auscultation: + diminished lung sounds kyphotic spine Cardiovascular: Rate/Rhythm: regular rate and regular rhythm Extremities: + edema (trace - 1+) Gastrointestinal (Abdomen): Inspection/Auscultation: normal bowel sounds; abdomen not distended Percussion/Palpation: abdomen nontender Musculoskeletal: Extremities: + muscle atrophy; no cyanosis Skin: + rash (excoriations scale distal BLE) Neurologic: awake Motor/Sensory: + abnormal movement (delayed) Psychiatric: Orientation: oriented x 3 and cooperative Eye Contact: + fair eye contact Motor Behavior: no abnormal motor movements and + psychomotor retardation Affect: + flat affect Results & Data Laboratory Results Abnormal lab results 11/14/18 11/14/18 Range/Units 05:40 05:40 RBC 3.50 L (4.2-5.4) M/uL Hgb 8.5 L (12.0-16.0) g/dL Hct 28.4 L (37-47) % MCH 24.3 L (25-34) pg MCHC 29.9 L (32-36) g/dL RDW Std Deviation 66.8 H (36.4-46.3) fL RDW Coeff of Amos 23.4 H (11.5-14.5) % Plt Count 114 L (130-400) K/uL MPV 10.5 H (7.4-10.4) fL Lymph # (Auto) 0.78 L (1.2-3.4) K/uL [place] # (Auto) 0.79 H (0.11-0.59) K/uL Chloride 96 L (98-107) mmol/L Carbon Dioxide 33 H (21-32) mmol/L BUN 77 H (7-18) mg/dl Creatinine 2.72 H D (0.6-1.2) mg/dl BUN/Creatinine Ratio 28.4 H (10-20) Glucose 110 H (70-99) mg/dl
[2018-11-14] MEDS: MAGNESIUM HYDROXIDE SUSP 30 ML UDC PO PRN (11:40)
[2018-11-14] MEDS: ONDANSETRON INJ 2 MG/ML 2 ML VIAL IV PRN (12:59)
--- NOTE | 2018-11-14 13:40 | Hospitalist Progress Note ---
Date of Service November 14, 2018 Assessment & Plan (1) CHF (congestive heart failure): Acute on chronic right heart failure. Received diuretic therapy with IV furosemide and metoloazone with improvement. Weight down 82.1 kg --> 72.6 kg. Transitioned to torsemide 100 mg daily. (2) Anasarca: Diuretic therapy as noted above. (3) Renal insufficiency: Serum creatinine 2.19 day of admission, cristhian as high as 3.74. CKD III with superimposed HANNAH. Nephrology consulted. Creatinine today = 2.72. Follow. (4) Hypokalemia: K as low as 3.0. K today = 3.9. Replace Liberalize K restriction in diet. Follow. (5) Hypertension: Continue carvedilol and diuretics. Follow and titrate Rx. (6) Cough: Congested cough. Son had cold. Afebrile. Chest x-ray 11/08 demonstrated improved pulmonary edema, no infiltrates. Influenza PCR negative. (7) Hematuria: Hold aspirin and SQ heparin. UA showed WBC's and bacteria. Urine culture pending. Stated on IV ceftriaxone. (8) Anemia: Probably multifactorial, anemia of chronic kidney disease and other factors. Follow. (9) DVT prophylaxis: Received SQ heparin. Now with hematuria. Hold heparin. SCD's. Ambulate as tolerated. (10) Discharge planning issues: Anticipated need for skilled care. Case Management following. Family Medicine follow-up with Dr. Seymour. Subjective Recheck for multiple medical problems. Patient was seen in her room around 1230. Constipated. Fatigued. No fever. Intermittent cough. No chest pain. Appetite fair. No nausea or vomiting. No diarrhea. No dysuria. Itching of legs improved. Physical Exam 2 Vital Signs (Past 24 Hours): Last Vital Signs Temp 36.5 C 11/14/18 11:33 Pulse 65 11/14/18 11:33 Resp 14 11/14/18 11:33 BP 136/54 L 11/14/18 11:33 Pulse Ox 97 11/14/18 11:33 Constitutional: + frail appearing; no acute distress Respiratory: no respiratory distress Auscultation: + rhonchi (few, scattered) Cardiovascular: Rate/Rhythm: regular rate and regular rhythm Heart Sounds: + murmur (II/ sys murmur LSB); no gallop and no cardiac rub Vessels: no JVD Extremities: + edema (1+); no calf tenderness Gastrointestinal (Abdomen): normal bowel sounds, soft, nontender, no hepatosplenomegaly Skin: + rash (venous stasis dermatitis lower extremities below knees- improved ) Psychiatric: Orientation: alert and oriented x 3 _ (1) CHF (congestive heart failure) Heart failure chronicity: unspecified Heart failure type: unspecified Qualified Code(s): I50.9 - Heart failure, unspecified
[2018-11-14] MEDS ORDERED: PROMETHAZINE HCL 12.5 MG in SODIUM CHLORIDE 0.9% 50 ML IV ONE (15:15)
[2018-11-14] MEDS ORDERED: ONDANSETRON INJ 2 MG/ML 2 ML VIAL IV ONE (17:54)
--- NOTE | 2018-11-14 18:31 | XRay Report ---
KUB HISTORY: Acute nausea and vomiting nausea vomiting COMPARISON: CT abdomen and pelvis 10/31/2018. FINDINGS: The bowel gas pattern is non-obstructive. Prior cholecystectomy. 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 There is no organomegaly. No renal calculi. No ureteral calculi. No pneumoperitoneum or pneumatosis. No fracture. Levoscoliosis of the lumbar spine with advanced dege nerative changes. 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 Demineralized appearance of the bones. IMPRESSION: 1. Nonobstructive bowel gas pattern. 2. Prior cholecystectomy. Electronically signed by: Giancarlo Armstrong M.D. 11/14/2018 6:30 PM
[2018-11-14] MEDS: cefTRIAXone SODIUM 1,000 MG in DEXTROSE 5% 50 ML IV SCH (20:38)
[2018-11-14] MEDS: PRAVASTATIN SOD 20 MG TAB PO SCH (20:41)
[2018-11-14] MEDS: CARVEDILOL 3.125 MG TAB PO SCH (20:42)
[2018-11-14] MEDS ORDERED: GLYCERIN ADULT 12 EA SUPP PR ONE (21:00)
[2018-11-15] MEDS: ACETAMINOPHEN 325 MG TAB PO SCH ×4 (02:38→23:35)
[2018-11-15 04:32] LABS: Basophils # (auto) 0.02 K/uL (0-0.2); Basophils % (auto) 0.3 %; Eosinophils # (auto) 0.02 K/uL (0-0.5); Eosinophils % (auto) 0.3 %; Hematocrit (blood only) 30.7 % (37-47); Hemoglobin 9.4 g/dL (12.0-16.0); Immature Granulocytes # (auto) 0.01 K/uL (0.00-0.02); Immature Granulocytes % (auto) 0.2 %; Lymphocytes # (auto) 0.37 K/uL (1.2-3.4); Lymphocytes % (auto) 5.9 %; Mean Corpuscular Hgb Conc 30.6 g/dL (32-36); Mean Corpuscular Volume 81.2 fL (80-100); Mean Platelet Volume 9.6 fL (7.4-10.4); Monocytes # (auto) 0.27 K/uL (0.11-0.59); Monocytes % (auto) 4.3 %; Neutrophils # (auto) 5.59 K/uL (1.4-6.5); Platelet Count 115 K/uL (130-400); RDW Coefficient of Variation 23.8 % (11.5-14.5); RDW Standard Deviation 68.4 fL (36.4-46.3); Red Blood Count 3.78 M/uL (4.2-5.4); White Blood Count 6.28 K/uL (4.8-10.8)
[2018-11-15 04:39] LABS: HCO3 ABG 31 mmol/L (19-24); Oxygen Saturation ABG 94.2 % (90-95); PCO2 ABG 40 mmHg (35-46); PO2 ABG 74 mm/Hg (80-95)
[2018-11-15 04:41] LABS: Allen Test Pos (Pos)
[2018-11-15 04:50] LABS: Albumin Level 3.2 gm/dl (3.4-5.0); BUN Creatinine Ratio 27.7 (10-20); Calcium 8.9 mg/dl (8.5-10.1); Creatinine Clr Calc Pharmacy 12.5 ml/min; Est GFR (African American) 15.9; Est GFR (Non-African American) 13.7
[2018-11-15 04:56] LABS: Anisocytosis Present; Hypochromasia Present; Ovalocytes 1+
[2018-11-15 05:03] LABS: Albumin Globulin Ratio 0.7 (0.9-2); Bilirubin,Total 0.9 mg/dl (0.2-1); Globulin 4.5 gm/dl (2.5-4.0); Total Protein 7.7 gm/dl (6.4-8.2); Troponin I 0.093 ng/ml (0-0.045)
--- NOTE | 2018-11-15 06:39 | CT Scan Report ---
CT head/brain wo con CLINICAL HISTORY: confusion/lethargy COMPARISON STUDY: No previous studies for comparison. TECHNIQUE: Axial CT of the brain is performed from the vertex to the skull base. IV contrast was not administered for this examination. A dose lowering technique was utilized adhering to the principles of ALARA. CT DOSE: 844.62 mGy.cm FINDINGS: No intra or extra-axial mass lesions are visualized. There is no CT evidence of acute cortical infarc tion. There is no evidence of midline shift. There is no acute hemorrhage. No calvarial fractures ar e visualized. There are patchy white matter hypodensities likely on a small vessel basis. There is no evidence of pathologic ventricular dilatation. There is no evidence of acute sinusitis IMPRESSION: No acute intracranial findings Electronically signed by: Remigio Liu M.D. 11/15/2018 6:37 AM
--- NOTE | 2018-11-15 07:40 | XRay Report ---
XR chest 1V portable HISTORY: wheezing COMPARISON: Chest 11/08/2018. FINDINGS: The heart remains moderately enlarged. There are postoperative changes and a cardiac valve prosthesis. Left-sided dual-chamber pacemaker. No pneumothorax. Small bilateral pleural effusion with bibasilar densities persist. There is mild central pulmonary vascular congestion without overt edema . IMPRESSION: 1. Cardiomegaly with mild central pulmonary vascular congestion. 2. Small bilateral pleural effusions and bibasilar densities persist. Electronically signed by: Reid Silver M.D. 11/15/2018 7:38 AM
[2018-11-15] MEDS: FERROUS SULFATE 325 MG TAB PO SCH (08:33)
[2018-11-15] MEDS: TRIAMCINOLONE ACET 0.5% CR 15 GM TUBE EXT SCH ×2 (08:34→21:10)
[2018-11-15] MEDS: PANTOprazole 40 MG TAB PO SCH (08:34)
--- NOTE | 2018-11-15 08:40 | Nephrology Progress Note ---
Date of Service November 15, 2018 Assessment & Plan (1) Renal insufficiency: baseline creatinine per outside records 1.3-1.5 as of 09/2018; presenting creatinine 2.4, peak at 3.4. First standing wt from 11/04 was 79.4kg. Cr basically plateau'd at 2.2-2.4 11/09-11/13; now trending up and creat 2.9 today. Weight difficult to track > 72.6 on 11/12; Try to get standing weights whenever possible but pt cannot always do -Monitor renal function with daily BMP in setting of diuresis -today's labs again w/ worsened renal function: creat 2.4>2.7 > 2.9 >>>? d/t diminished po w/ decreased MS x 2 days and w/ UTI -stopped metolazone yesterday -torsemide on hold today and for IVF -at d/c (not imminent), will need f/u appt in CKD clinic in one month w/ me or charis; will need bmp weekly (not tuesday) and daily standing wt, FR and Na R as she has had in house at d/c (2) Anemia of renal disease: Hb 8.5 today. Recent iron sats of 20. Started ferrous sulfate 325mg po bid on 11/10. could consider epogen at some point but not now; no IV iron w/ question of active infection Subjective head CT, CXR, ABG 0400 this am d/t worse lethargy> mild metabolic alkalosis and hypoxemia; no other striking findings; NPO now; torsemide held and for 1L IVF today; noted later this am to have ammonia in 80s; unable to give ros to me this am Physical Exam 2 Vital Signs (Past 24 Hours): Last Vital Signs Temp 36.8 C 11/15/18 07:05 Pulse 60 11/15/18 07:05 Resp 20 11/15/18 07:05 BP 123/48 L 11/15/18 07:05 Pulse Ox 91 11/15/18 07:05 Constitutional: well developed, well nourished and + lethargic lying flat on 02nc, no resp distress Eyes: EOM intact bilaterally ENMT: Ears: no external ear abnormality Nose: no external nose abnormality Mouth: + dry oral mucous membranes Neck: no nuchal rigidity Respiratory: no respiratory distress Auscultation: + diminished lung sounds Cardiovascular: Rate/Rhythm: regular rate and regular rhythm Extremities: + edema (trace ) Gastrointestinal (Abdomen): Inspection/Auscultation: normal bowel sounds; abdomen not distended Percussion/Palpation: abdomen nontender Musculoskeletal: Extremities: + muscle atrophy; no cyanosis Skin: + rash (distal ble less) Neurologic: awake Motor/Sensory: + abnormal movement (delayed) Psychiatric: A+Ox3, euthymic affect Orientation: oriented x 3 and cooperative Eye Contact: + fair eye contact Motor Behavior: no abnormal motor movements and + psychomotor retardation Speech: normal rate/rhythm/ volume of speech Affect: + flat affect Results & Data Laboratory Results Abnormal lab results 11/15/18 11/15/18 11/15/18 Range/Units 04:23 04:23 04:23 RBC 3.78 L (4.2-5.4) M/uL Hgb 9.4 L (12.0-16.0) g/dL Hct 30.7 L (37-47) % MCH 24.9 L (25-34) pg MCHC 30.6 L (32-36) g/dL RDW Std Deviation 68.4 H (36.4-46.3) fL RDW Coeff of Amos 23.8 H (11.5-14.5) % Plt Count 115 L (130-400) K/uL Lymph # (Auto) 0.37 L (1.2-3.4) K/uL ABG pH 7.50 H (7.35-7.45) ABG pO2 74 L (80-95) mm/Hg ABG HCO3 31 H (19-24) mmol/L ABG Base Excess 6.9 H (-9-1.8) mEq/L Chloride 97 L (98-107) mmol/L BUN 81 H (7-18) mg/dl Creatinine 2.91 H (0.6-1.2) mg/dl BUN/Creatinine Ratio 27.7 H (10-20) Glucose 117 H (70-99) mg/dl POC Glucose (70-99) Troponin I 0.093 H* (0-0.045) ng/ml Albumin 3.2 L (3.4-5.0) gm/dl Globulin 4.5 H (2.5-4.0) gm/dl Albumin/Globulin Ratio 0.7 L (0.9-2) 11/15/18 Range/Units 04:25 RBC (4.2-5.4) M/uL Hgb (12.0-16.0) g/dL Hct (37-47) % MCH (25-34) pg MCHC (32-36) g/dL RDW Std Deviation (36.4-46.3) fL RDW Coeff of Amos (11.5-14.5) % Plt Count (130-400) K/uL Lymph # (Auto) (1.2-3.4) K/uL ABG pH (7.35-7.45) ABG pO2 (80-95) mm/Hg ABG HCO3 (19-24) mmol/L ABG Base Excess (-9-1.8) mEq/L Chloride (98-107) mmol/L BUN (7-18) mg/dl Creatinine (0.6-1.2) mg/dl BUN/Creatinine Ratio (10-20) Glucose (70-99) mg/dl POC Glucose 123 H (70-99) Troponin I (0-0.045) ng/ml Albumin (3.4-5.0) gm/dl Globulin (2.5-4.0) gm/dl Albumin/Globulin Ratio (0.9-2) Diagnostic Findings cxr 1. Cardiomegaly with mild central pulmonary vascular congestion. 2. Small bilateral pleural effusions and bibasilar densities persist. head ct IMPRESSION: No acute intracranial findings
[2018-11-15] MEDS ORDERED: D5W AND LACTATED RINGERS 1,000 ML IV SCH (09:00)
[2018-11-15] MEDS: cefTRIAXone SODIUM 1,000 MG in DEXTROSE 5% 50 ML IV SCH (19:47)
--- NOTE | 2018-11-15 20:23 | Hospitalist Progress Note ---
Date of Service November 15, 2018 Assessment & Plan (1) CHF (congestive heart failure): Acute on chronic right heart failure. Received diuretic therapy with IV furosemide and metoloazone with improvement. Weight down 82.1 kg --> 68.9 kg. Transitioned to torsemide 100 mg daily. Hold diuretics today because of worsening renal function. (2) Anasarca: Diuretic therapy as noted above. (3) Renal insufficiency: Serum creatinine 2.19 day of admission, cristhian as high as 3.74. CKD III with superimposed HANNAH. Nephrology consulted. Creatinine today = 2.91. Hold torsemide. IV fluids x 1 liter. Follow. (4) Hypokalemia: K as low as 3.0. K today = 4.0. Replace Liberalize K restriction in diet. Follow. (5) Hypertension: Continue carvedilol and diuretics. Follow and titrate Rx. (6) Cough: Congested cough. Son had cold. Afebrile. Chest x-ray 11/08 demonstrated improved pulmonary edema, no infiltrates. Influenza PCR negative. (7) Hematuria: Secondary to UTI. Hold aspirin and SQ heparin. (8) Urinary tract infection: Developed hematuria 11/12/18. UA showed WBC's and bacteria. Stated on IV ceftriaxone. Urine culture grew E coli and Enterobacter aerogenes, both sensitive to ceftriaxone. (9) Anemia: Probably multifactorial, anemia of chronic kidney disease and other factors. Follow. (10) Altered mental status: Fluctuating mental status since admission. Head CT showed chronic small vessel disease, no acute findings. Metabolic encephalopathy / delirium, multifactorial. (11) Hepatic encephalopathy: Serum ammonia 83. Hepatic encephalopathy. Suspect hepatic failure due to passive congestion of liver due to right sided CHF. Lactulose. (12) Elevated troponin level: Serum troponin slightly elevated. Doubt acute WI. Favor nonspecific elevation vs demand ischemia. (13) DVT prophylaxis: Received SQ heparin. Developed hematuria. Holding heparin. SCD's. Ambulate as tolerated. (14) Discharge planning issues: Advanced age with comorbidities- CHF, worsening renal function, worsening hepatic function. Long-term prognosis is poor. Palliative care and eventual transition to hospice discussed with family. Anticipated need for skilled care. Case Management following. Family Medicine follow-up with Dr. Seymour. Subjective Recheck for multiple medical problems. Patient was seen in her room around 0930. Constipated yesterday. Vomiting a few times last evening- no hematemsis. Moved bowels last night after receiving glycerine suppository. More confused during the night. Head CT did not show any acute changes. Somnolent this morning. Physical Exam 2 Vital Signs (Past 24 Hours): Last Vital Signs Temp 36.5 C 11/15/18 19:55 Pulse 61 11/15/18 19:55 Resp 18 11/15/18 19:55 BP 139/49 L 11/15/18 19:55 Pulse Ox 94 11/15/18 19:55 Constitutional: + ill appearing and + frail appearing; no acute distress Respiratory: no respiratory distress Auscultation: + rhonchi (few, scattered) Cardiovascular: Rate/Rhythm: regular rate and regular rhythm Heart Sounds: + murmur (II/ sys murmur LSB); no gallop and no cardiac rub Vessels: no JVD Extremities: + edema (1+); no calf tenderness Gastrointestinal (Abdomen): normal bowel sounds, soft, nontender, no hepatosplenomegaly Skin: no rashes, warm and dry + rash (venous stasis dermatitis lower extremities below knees- improved) Results & Data Laboratory Results Laboratory Results - last 24 hr 11/15/18 11/15/18 11/15/18 04:23 04:23 04:23 WBC 6.28 RBC 3.78 L Hgb 9.4 L Hct 30.7 L MCV 81.2 MCH 24.9 L MCHC 30.6 L RDW Std Deviation 68.4 H RDW Coeff of Amos 23.8 H Plt Count 115 L MPV 9.6 Immature Gran % (Auto) 0.2 Neut % (Auto) 89.0 Lymph % (Auto) 5.9 Jones % (Auto) 4.3 Eos % (Auto) 0.3 Baso % (Auto) 0.3 Immature Gran # (Auto) 0.01 Neut # (Auto) 5.59 Lymph # (Auto) 0.37 L [place] # (Auto) 0.27 Eos # (Auto) 0.02 Baso # (Auto) 0.02 Hypochromasia Present Anisocytosis Present Ovalocytes 1+ ABG pH 7.50 H ABG pCO2 40 ABG pO2 74 L ABG HCO3 31 H ABG O2 Saturation 94.2 ABG Base Excess 6.9 H Tez Test Pos Barometric Pressure 727.9 Oxygen Given 2L Sodium 136 Potassium 4.0 Chloride 97 L Carbon Dioxide 32 Anion Gap 7.0 BUN 81 H Creatinine 2.91 H Est Cr Clr Drug Dosing 12.5 Est GFR ( Amer) 15.9 Est GFR (Non-Af Amer) 13.7 BUN/Creatinine Ratio 27.7 H Glucose 117 H POC Glucose Calcium 8.9 Total Bilirubin 0.9 AST 21 ALT 15 Alkaline Phosphatase 53 Ammonia Troponin I 0.093 H* Total Protein 7.7 Albumin 3.2 L Globulin 4.5 H Albumin/Globulin Ratio 0.7 L 11/15/18 11/15/18 11/15/18 04:25 09:02 09:02 WBC RBC Hgb Hct MCV MCH MCHC RDW Std Deviation RDW Coeff of Amos Plt Count MPV Immature Gran % (Auto) Neut % (Auto) Lymph % (Auto) Jones % (Auto) Eos % (Auto) Baso % (Auto) Immature Gran # (Auto) Neut # (Auto) Lymph # (Auto) Jones # (Auto) Eos # (Auto) Baso # (Auto) Hypochromasia Anisocytosis Ovalocytes ABG pH ABG pCO2 ABG pO2 ABG HCO3 ABG O2 Saturation ABG Base Excess Tez Test Barometric Pressure Oxygen Given Sodium Potassium Chloride Carbon Dioxide Anion Gap BUN Creatinine Est Cr Clr Drug Dosing Est GFR ( Amer) Est GFR (Non-Af Amer) BUN/Creatinine Ratio Glucose POC Glucose 123 H Calcium Total Bilirubin AST ALT Alkaline Phosphatase Ammonia 83.0 H Troponin I 0.112 H* Total Protein Albumin Globulin Albumin/Globulin Ratio _ (1) CHF (congestive heart failure) Heart failure chronicity: unspecified Heart failure type: unspecified Qualified Code(s): I50.9 - Heart failure, unspecified
[2018-11-15] MEDS: LACTULOSE SYRUP 30 GM/45 ML UDP PO SCH (21:04)
[2018-11-15] MEDS: PRAVASTATIN SOD 20 MG TAB PO SCH (21:09)
[2018-11-15] MEDS: CARVEDILOL 3.125 MG TAB PO SCH (21:09)
[2018-11-16 07:13] LABS: BUN Creatinine Ratio 27.5 (10-20); Calcium 8.3 mg/dl (8.5-10.1); Creatinine Clr Calc Pharmacy 11.6 ml/min; Est GFR (African American) 14.6; Est GFR (Non-African American) 12.6; Potassium 3.3 mmol/L (3.5-5.1)
[2018-11-16] MEDS ORDERED: POTASSIUM CHLORIDE 40 MEQ in SODIUM CHLORIDE 0.9% 1000ML 1,000 ML IV SCH (07:30)
[2018-11-16] MEDS: PANTOprazole 40 MG TAB PO SCH (08:01)
[2018-11-16] MEDS: LACTULOSE SYRUP 30 GM/45 ML UDP PO SCH ×2 (08:01→21:51)
[2018-11-16] MEDS: TRIAMCINOLONE ACET 0.5% CR 15 GM TUBE EXT SCH ×2 (08:01→21:22)
[2018-11-16] MEDS: ACETAMINOPHEN 325 MG TAB PO SCH ×2 (08:01→15:56)
--- NOTE | 2018-11-16 10:29 | Hospitalist Progress Note ---
Date of Service November 16, 2018 Assessment & Plan (1) CHF (congestive heart failure): Acute on chronic right heart failure. Received diuretic therapy with IV furosemide and metoloazone with improvement. Weight down 82.1 kg --> 69.2 kg. Transitioned to torsemide 100 mg daily. Currently holding diuretics because of worsening renal function. (2) Anasarca: Diuretic therapy as noted above. (3) Renal insufficiency: Serum creatinine 2.19 day of admission, cristhian as high as 3.74. CKD III with superimposed HANNAH. Nephrology consulted. Creatinine today = 3.13. Holding torsemide. Repeat IV fluids x 1 liter. Follow. (4) Hypokalemia: K as low as 3.0. K today = 3.3. Replace Liberalized K restriction in diet. Follow. (5) Hypertension: Continue carvedilol and diuretics. Follow and titrate Rx. (6) Cough: Congested cough. Son had cold. Afebrile. Chest x-ray 11/08 demonstrated improved pulmonary edema, no infiltrates. Influenza PCR negative. Repeat chest x-ray 11/15- no definite infiltrates (bibasilar densities, probable atelectasis). (7) Hematuria: Secondary to UTI. Holding aspirin and SQ heparin. (8) Urinary tract infection: Developed hematuria 11/12/18. UA showed WBC's and bacteria. Started on IV ceftriaxone. Urine culture grew E coli and Enterobacter aerogenes, both sensitive to ceftriaxone. (9) Anemia: Probably multifactorial, anemia of chronic kidney disease and other factors. Follow. (10) Altered mental status: Fluctuating mental status since admission. Head CT showed chronic small vessel disease, no acute findings. Metabolic encephalopathy / delirium, multifactorial. (11) Hepatic encephalopathy: Serum ammonia 83. Hepatic encephalopathy. Suspect hepatic failure due to passive congestion of liver due to right sided CHF. Lactulose. (12) Elevated troponin level: Serum troponin slightly elevated. Doubt acute MO. Favor nonspecific elevation vs demand ischemia. (13) DVT prophylaxis: Received SQ heparin. Developed hematuria. Holding heparin. SCD's. Ambulate as tolerated. (14) Discharge planning issues: Advanced age with comorbidities- CHF, worsening renal function, worsening hepatic function. Long-term prognosis is poor. Palliative care and eventual transition to hospice discussed with family. Anticipated need for skilled care. Case Management following. Family Medicine follow-up with Dr. Seymour. Subjective Recheck for multiple medical problems. Patient was seen in her room around 0920. Confused during the night. No more emesis reported. Somnolent this morning. Physical Exam 2 Vital Signs (Past 24 Hours): Last Vital Signs Temp 36.8 C 11/16/18 07:47 Pulse 68 11/16/18 08:00 Resp 16 11/16/18 07:47 BP 130/62 11/16/18 07:47 Pulse Ox 98 11/16/18 07:47 Constitutional: + ill appearing and + frail appearing; no acute distress Respiratory: no respiratory distress Auscultation: + rhonchi (few, scattered) Cardiovascular: Rate/Rhythm: regular rate and regular rhythm Heart Sounds: + murmur (II/ sys murmur LSB); no gallop and no cardiac rub Vessels: no JVD Extremities: + edema (1+); no calf tenderness Gastrointestinal (Abdomen): normal bowel sounds, soft, nontender, no hepatosplenomegaly Skin: no rashes, warm and dry + rash (venous stasis dermatitis lower extremities below knees- improved) Psychiatric: somnolent Results & Data Laboratory Results Laboratory Results - last 24 hr 11/16/18 05:53 Sodium 139 Potassium 3.3 L D Chloride 99 Carbon Dioxide 32 Anion Gap 8.0 BUN 86 H Creatinine 3.13 H Est Cr Clr Drug Dosing 11.6 Est GFR ( Amer) 14.6 Est GFR (Non-Af Amer) 12.6 BUN/Creatinine Ratio 27.5 H Glucose 99 Calcium 8.3 L _ (1) CHF (congestive heart failure) Heart failure chronicity: unspecified Heart failure type: unspecified Qualified Code(s): I50.9 - Heart failure, unspecified
[2018-11-16] MEDS: cefTRIAXone SODIUM 1,000 MG in DEXTROSE 5% 50 ML IV SCH (21:21)
[2018-11-16] MEDS: CARVEDILOL 3.125 MG TAB PO SCH (21:22)
[2018-11-16] MEDS: IRON POLYSACCHARIDE COMPLEX 150 MG CAPSULE PO SCH (21:51)
[2018-11-16] MEDS ORDERED: LORATADINE 10 MG TAB PO ONE (22:00)
[2018-11-17] MEDS: ACETAMINOPHEN 325 MG TAB PO SCH ×3 (01:57→17:40)
[2018-11-17 05:55] LABS: Basophils # (auto) 0.02 K/uL (0-0.2); Basophils % (auto) 0.5 %; Eosinophils # (auto) 0.31 K/uL (0-0.5); Eosinophils % (auto) 7.2 %; Hematocrit (blood only) 30.4 % (37-47); Immature Granulocytes # (auto) 0.01 K/uL (0.00-0.02); Immature Granulocytes % (auto) 0.2 %; Lymphocytes # (auto) 0.69 K/uL (1.2-3.4); Lymphocytes % (auto) 16.1 %; Mean Corpuscular Hgb Conc 29.6 g/dL (32-36); Mean Corpuscular Volume 83.1 fL (80-100); Mean Platelet Volume 9.4 fL (7.4-10.4); Monocytes # (auto) 0.78 K/uL (0.11-0.59); Monocytes % (auto) 18.2 %; Neutrophils # (auto) 2.47 K/uL (1.4-6.5); Neutrophils % (auto) 57.8 %; Platelet Count 109 K/uL (130-400); RDW Standard Deviation 71.8 fL (36.4-46.3); Red Blood Count 3.66 M/uL (4.2-5.4); White Blood Count 4.28 K/uL (4.8-10.8)
[2018-11-17 06:12] LABS: INR 1.2 (0.9-1.1)
[2018-11-17 06:23] LABS: Anisocytosis Present; Hypochromasia Present
[2018-11-17 06:29] LABS: Albumin Level 2.9 gm/dl (3.4-5.0); BUN Creatinine Ratio 33.1 (10-20); Bilirubin Direct 0.3 mg/dl (0-0.2); Calcium 8.4 mg/dl (8.5-10.1); Creatinine Clr Calc Pharmacy 15.8 ml/min; Est GFR (African American) 21.1; Est GFR (Non-African American) 18.2; Potassium 3.8 mmol/L (3.5-5.1)
[2018-11-17 06:35] LABS: Albumin Globulin Ratio 0.7 (0.9-2); Bilirubin,Total 0.5 mg/dl (0.2-1); Globulin 4.3 gm/dl (2.5-4.0); Total Protein 7.2 gm/dl (6.4-8.2)
[2018-11-17] MEDS: LACTULOSE SYRUP 30 GM/45 ML UDP PO SCH ×2 (08:13→20:51)
[2018-11-17] MEDS: TRIAMCINOLONE ACET 0.5% CR 15 GM TUBE EXT SCH ×2 (08:13→21:06)
[2018-11-17] MEDS: IRON POLYSACCHARIDE COMPLEX 150 MG CAPSULE PO SCH ×2 (08:13→20:50)
[2018-11-17] MEDS: PANTOprazole 40 MG TAB PO SCH (08:13)
--- NOTE | 2018-11-17 14:14 | Palliative Care Consultation ---
Date of Consultation November 17, 2018 Assessment & Plan (1) Palliative care encounter: This is an 88 year old female with a long standing history of Right-sided CHF, CRF, and mental status changes who presented to the [facility] from her son's home on 10/31/18 with increased SOB, related to poor compliance of fluid restriction r/t CHF. Per review of the chart, she has had numerous inpatient hospitalizations over the past two months, mostly at [facility] in [place], [place] for A/C CHF exacerbations. At baseline, she does NOT require supplemental O2 and family has been consistent in not wanting to persue hemodialysis. Palliative Care was consulted to discuss GOALS OF CARE. -Met with patient and son, Skyler, at the bedside. Patient mental status is improving with decreasing Ammonia levels from Lactulose intake. -Discussed GOALS OF CARE and her wishes in the event she can't articulate such. 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 Patient was able to participate in this conversation and express she would like to remain a DNR and does not want to come back to the hospital, just wants to 'get her wings when its time to get her wings'. -I am; however, not certain that she understands the complexity of her illness, but she was able to tell me shes heard she has CHF. 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 She did lose one of her twins 14 years ago d/t a ruptured appendix. -I met separately with the patient's son in another empty room and discussed goals further. -Skyler would like her to go to [facility] for some rehabilitation, but wants to bring her home thereafter with Hospice and 24/7 care. -We discussed caregiver burnout and he is very understanding of having additional support and has the financial means to do so. I stressed it would not be safe for her to be alone even for a short timeframe bc of her mental status changes, which is likely related to hepatic congestion from her CHF. -A POLST form was completed and signed by Skyler indicating: DNR/DNI, Comfort measures only, trial antibiotics, and no artificial nutrition/hydration. We did discuss if she ahs a fall at a SNF/home and discussed surgical intervention of a suspected hip/bone fracture - we concluded that she likely would not be a surgical candidate and even if she was, prognosis and rehabilitation would likely be guarded; therefore, he would only like her transferred to the hospital post discharge, should her comfort needs not be met. The POLST was provided to the patients son and one placed on the chart as well. -I spoke with Franklyn, from Case Management who will provide 09/05 care duty list and hospice list. We did discuss [facility] does work closely with [facility] so may be helpful moving forward. PPS: 30% (2) Acute on chronic right heart failure: Managed by Hospitalists Acute on chronic right heart failure. Patient is responding with fluid restriction and her weight is down as well with diuretic therapy. That being said, diuretics are causing worsening renal function. This was discussed with the patient's son and plan is to eventually transition away from fluid restriction with comfort in mind. Pt and pt son state she does get pruritic in her lower extremities from the swelling. Would suggest scheduling an antihistamine for comfort, keeping in mind clearance and mental status changes with raphael BEERS criteria. (3) Hepatic encephalopathy: Managed by Hospitalists Likely hepatic congestion secondary to CHF Pt receiving Lactulose. Most recent Ammonia level was 83--> 36 with ingestion of Lactulose. Today, pt is mentating relatively clear. (4) Altered mental status: -Pt did have recent UTI, causing delirium. -Most recently related to hepatic encephalopathy which is being managed with Lactulose. -I did discuss with the pt. son, about quality of life and eventually stopping the Lactulose when looking at benefit vs risk and keeping in mind the patients comfort goal. (5) Anemia of renal disease: -Managed by hospitalists and Nephrology was on board as well. -Stage IV renal failure. -Pt and family have repeatedly declined hemodialysis; focus more on comfort. -PT creatinine fluctuates between 2-4 with most recent being 2.3, pt GFR 18 -Pt Hgb/Hct 9.0/30.4 Supervising Physician Co-Signing Physician Notes Chart reviewed, patient seen and examined-reviewed plan of care with KJ Luther Patient son and [id number] at bedside PE: Patient in no acute distress Respiratory: Decreased breath sounds bilaterally, Few rhonchi bilaterally, respirations unlabored CV:Regular rate, positive pitting edema lower extremities Abdomen: Soft, nontender Neuro: Patient alert and oriented Agree with above note, assessment and plan as per KJ Luther P-goal is to have patient participate in rehab at [facility] and then eventually return to the son's home. History of Present Illness Reason for Consultation: goals of care Requesting Physician: Dr. Ulloa Attending Physician: Regis Delgadillo MD History of Present Illness This is an 88 year old female with a long standing history of Right-sided CHF, CRF, and mental status changes who presented to the [facility] from her son's home on 10/31/18 with increased SOB, related to poor compliance of fluid restriction r/t CHF. Per review of the chart, she has had numerous inpatient hospitalizations over the past two months, mostly at [facility] in [place], [place] for A/C CHF exacerbations. At baseline, she does NOT require supplemental O2 and family has been consistent in not wanting to pursue hemodialysis. Palliative Care was consulted to discuss GOALS OF CARE. Please see Assessment and Plan for further details. Thank you kindly for involving us with this kameron patient and family. Allergies Allergy/AdvReac Type Severity Reaction Status Date / Time celecoxib Allergy Intermediate . Unverified 10/31/18 10:50 estrogens, conjugated Allergy Intermediate . Unverified 10/31/18 10:50 levofloxacin Allergy Intermediate . Unverified 10/31/18 10:50 nitrofurantoin Allergy Intermediate . Unverified 10/31/18 10:50 quinidine Allergy Intermediate HEART Unverified 10/31/18 10:50 ALMOST STOPPED tetanus toxoid, adsorbed Allergy Intermediate HIVES Unverified 10/31/18 10:50 sulfisoxazole AdvReac Intermediate HEADACHE Unverified 10/31/18 10:50 Home Medications Home Medications Medication Instructions Recorded Confirmed Type acetaminophen 325 mg PO Q6H PRN 10/31/18 10/31/18 History aspirin 81 mg PO QAM 10/31/18 10/31/18 History bacitracin 1 applic TOPICAL DAILY PRN 10/31/18 10/31/18 History carvedilol [Coreg] 3.125 mg PO HS 10/31/18 10/31/18 History dextromethorphan-guaifenesin 10 ml PO Q4 PRN 10/31/18 10/31/18 History [Robitussin Cough-Chest Joseph DM] diphenhydramine HCl [Benadryl] 25 mg PO Q8 PRN 10/31/18 10/31/18 History iron ag,[id number] 1 tab PO BID 10/31/18 10/31/18 History [Niferex (Sumalate-Quatrefolic)] losartan [Cozaar] 100 mg PO QAM 10/31/18 10/31/18 History magnesium hydroxide [Milk of 30 ml PO DAILY PRN 10/31/18 10/31/18 History Magnesia] pantoprazole [Protonix] 40 mg PO QAM 10/31/18 10/31/18 History phenyleph-min oil-petrolatum 1 applic SD BID PRN 10/31/18 10/31/18 History [Preparation H] potassium chloride [Klor-Con 10] 10 meq PO QAM 10/31/18 10/31/18 History pravastatin [Pravachol] 20 mg PO HS 10/31/18 10/31/18 History torsemide [Demadex] 20 mg PO BID 10/31/18 10/31/18 History Patient History Medical History HTN (hypertension) (Chronic) Surgical History Pacemaker (Chronic) Family History Other No pertinent family history Social History Current Living Situation: Family Other Information That Helps Us Care for You: No Feels Safe at Home: Yes Safety Concerns: Feels Safe At This Time Smoking Status: Never smoker Do You Dip or Chew Tobacco: No Second Hand Exposure: No Tobacco Cessation Education Requested by Patient: No Hx Alcohol Use: No Hx Substance Use: No Beliefs That Will Affect Care: None Communication Ability: Unable Review of Systems General: Patient denies overall pain HEENT: Pt denies CARTER, dizziness, visual changes CV: Pt denies heart palpitations, chest pain. Reports (+) swelling in her legs Resp: Pt reports cough and some difficulty breathing with activity GI/: Pt denies N/V/D, urinary changes Skin: Pt reports itching in her lower extremities Psych: Pt states she is "confused sometimes" Physical Exam 2 Vital Signs (Past 24 Hours): Last Vital Signs Temp 36.2 C L 11/17/18 07:10 Pulse 89 11/17/18 07:10 Resp 20 11/17/18 07:10 BP 161/52 H 11/17/18 07:10 Pulse Ox 94 11/17/18 11:22 Physical Exam: Pt was sitting up in her bed eating some lunch when I entered the room and was in NAD Constitutional: + ill appearing and + frail appearing Eyes: PERRL, conjunctivae normal, anicteric sclerae (no jaundice noted) Neck: trachea midline, no thyromegaly Respiratory: Auscultation: + crackles and + rhonchi on RA Cardiovascular: Vessels: + JVD (right sided JVD noted) Extremities: + edema (+2 LE B/L) and + varicosities Gastrointestinal (Abdomen): Inspection/Auscultation: abdomen normal to inspection and normal bowel sounds Percussion/Palpation: abdomen soft (non tender) Skin: normal turgor dusky LE B/L Psychiatric: Orientation: alert, oriented x 3 (patient with confusion to details and complexity of illness) and cooperative Eye Contact: good eye contact Affect: euthymic affect Insight: + limited insight Time Spent Midlevel Total time spent 70 minutes with > 50% of that time spent reviewing the chart, assessing the patient, discussing GOALS OF CARE with patient and son at the bedside and completing a POLST form with the patient's son.
[2018-11-17] MEDS: CARVEDILOL 3.125 MG TAB PO SCH (20:50)
--- NOTE | 2018-11-17 21:24 | Hospitalist Progress Note ---
Date of Service November 17, 2018 Assessment & Plan (1) CHF (congestive heart failure): Acute on chronic right heart failure. Received diuretic therapy with IV furosemide and metoloazone with improvement. Weight down 82.1 kg --> 69.2 kg. Transitioned to torsemide. Currently holding diuretics because of worsening renal function. Renal function improving. Resume torsemide tomorrow at dose of 80 mg dailiy. (2) Anasarca: Diuretic therapy as noted above. (3) Renal insufficiency: Serum creatinine 2.19 day of admission, cristhian as high as 3.74. CKD III with superimposed HANNAH. Nephrology consulted. Held diuretics. Received IV fluids. Creatinine today = 2.3. Resume torsemide tomorrow. Follow. (4) Hypokalemia: K as low as 3.0. Replaced. Liberalized K restriction in diet. K today = 3.8. Follow. (5) Hypertension: Continue carvedilol and diuretics. Follow and titrate Rx. (6) Cough: Congested cough. Son had cold. Afebrile. Chest x-ray 11/08 demonstrated improved pulmonary edema, no infiltrates. Influenza PCR negative. Repeat chest x-ray 11/15- no definite infiltrates (bibasilar densities, probable atelectasis). (7) Hematuria: Secondary to UTI. Holding aspirin and SQ heparin. (8) Urinary tract infection: Developed hematuria 11/12/18. UA showed WBC's and bacteria. Started on IV ceftriaxone. Urine culture grew E coli and Enterobacter aerogenes, both sensitive to ceftriaxone. (9) Anemia: Probably multifactorial, anemia of chronic kidney disease and other factors. Follow. (10) Altered mental status: Fluctuating mental status since admission. Head CT showed chronic small vessel disease, no acute findings. Metabolic encephalopathy / delirium, multifactorial. (11) Hepatic encephalopathy: Serum ammonia 83 11/15/18.. Hepatic encephalopathy. Suspect hepatic failure due to passive congestion of liver due to right sided CHF. Lactulose started. Encephalopathy improved. (12) Elevated troponin level: Serum troponin slightly elevated. Doubt acute NM. Favor nonspecific elevation vs demand ischemia. (13) DVT prophylaxis: Received SQ heparin. Developed hematuria. Holding heparin. SCD's. Ambulate as tolerated. (14) Discharge planning issues: Advanced age with comorbidities- CHF, worsening renal function, worsening hepatic function. Long-term prognosis is poor. Palliative care and consideration of eventual transition to hospice discussed with patient and family. Anticipated need for skilled care. Case Management following. Family Medicine follow-up with Dr. Seymour. Subjective Recheck for multiple medical problems. Patient was seen in her room around 1105. Confusion improved. Out of bed in chair. No fever. Occasional cough. No SOB. No chest pain. No nausea or vomiting. Physical Exam 2 Vital Signs (Past 24 Hours): Last Vital Signs Temp 36.7 C 11/17/18 16:31 Pulse 64 11/17/18 20:48 Resp 17 11/17/18 16:31 BP 172/64 H 11/17/18 20:48 Pulse Ox 95 11/17/18 20:48 Constitutional: + frail appearing; no acute distress Respiratory: no respiratory distress Auscultation: + rhonchi (few, scattered) Cardiovascular: Rate/Rhythm: regular rate and regular rhythm Heart Sounds: + murmur (II/ sys murmur LSB); no gallop and no cardiac rub Vessels: no JVD Extremities: + edema (1+); no calf tenderness Gastrointestinal (Abdomen): normal bowel sounds, soft, nontender, no hepatosplenomegaly Skin: no rashes, warm and dry + rash (venous stasis dermatitis lower extremities below knees- improved) Psychiatric: Orientation: alert and oriented x 3 _ (1) CHF (congestive heart failure) Heart failure chronicity: unspecified Heart failure type: unspecified Qualified Code(s): I50.9 - Heart failure, unspecified
[2018-11-18] MEDS: ACETAMINOPHEN 325 MG TAB PO SCH ×3 (01:44→17:16)
[2018-11-18 06:50] LABS: BUN Creatinine Ratio 35.6 (10-20); Calcium 8.7 mg/dl (8.5-10.1); Creatinine Clr Calc Pharmacy 21.2 ml/min; Est GFR (Non-African American) 25.9; Potassium 3.6 mmol/L (3.5-5.1)
[2018-11-18] MEDS: IRON POLYSACCHARIDE COMPLEX 150 MG CAPSULE PO SCH ×2 (07:35→21:02)
[2018-11-18] MEDS: PANTOprazole 40 MG TAB PO SCH (07:36)
[2018-11-18] MEDS: TRIAMCINOLONE ACET 0.5% CR 15 GM TUBE EXT SCH ×2 (07:40→21:01)
[2018-11-18] MEDS: TORSEMIDE 20 MG TAB PO SCH (07:44)
[2018-11-18] MEDS: HEPARIN SOD 5,000 UNIT/0.5 ML VIAL SQ SCH ×2 (07:45→21:06)
[2018-11-18] MEDS: LACTULOSE SYRUP 30 GM/45 ML UDP PO SCH ×2 (07:51→21:05)
--- NOTE | 2018-11-18 14:06 | Hospitalist Progress Note ---
Date of Service November 18, 2018 Assessment & Plan (1) CHF (congestive heart failure): Acute on chronic right heart failure. Received diuretic therapy with IV furosemide and metoloazone with improvement. Weight down 82.1 kg --> 69.2 kg. Transitioned to torsemide. Currently holding diuretics because of worsening renal function. Renal function improving. Resume torsemide at dose of 80 mg dailiy. (2) Anasarca: Diuretic therapy as noted above. (3) Renal insufficiency: Serum creatinine 2.19 day of admission, cristhian as high as 3.74. CKD III with superimposed HANNAH. Nephrology consulted. Held diuretics. Received IV fluids. Creatinine today = 1.72. Resume torsemide @ dose of 80 mg daily. Follow. (4) Hypokalemia: K as low as 3.0. Replaced. Liberalized K restriction in diet. K today = 3.6. Follow. (5) Hypertension: Continue carvedilol and diuretics. Follow and titrate Rx. (6) Cough: Congested cough. Son had cold. Afebrile. Chest x-ray 11/08 demonstrated improved pulmonary edema, no infiltrates. Influenza PCR negative. Repeat chest x-ray 11/15- no definite infiltrates (bibasilar densities, probable atelectasis). (7) Hematuria: Secondary to UTI. Holding aspirin and SQ heparin. (8) Urinary tract infection: Developed hematuria 11/12/18. UA showed WBC's and bacteria. Started on IV ceftriaxone. Urine culture grew E coli and Enterobacter aerogenes, both sensitive to ceftriaxone. (9) Anemia: Hgb 8-9. No gross GI bleeding. Probably multifactorial, anemia of chronic kidney disease and other factors. Follow. (10) Altered mental status: Fluctuating mental status since admission. Head CT showed chronic small vessel disease, no acute findings. Metabolic encephalopathy / delirium, multifactorial. (11) Hepatic encephalopathy: Serum ammonia 83 11/15/18.. Hepatic encephalopathy. Suspect hepatic failure due to passive congestion of liver due to right sided CHF. Lactulose started. Encephalopathy improved. (12) Elevated troponin level: Serum troponin slightly elevated. Doubt acute ND. Favor nonspecific elevation vs demand ischemia. (13) DVT prophylaxis: Received SQ heparin. Developed hematuria. Held heparin. SCD's. Heparin resumed once hematuria resolved. Ambulate as tolerated. (14) Discharge planning issues: Advanced age with comorbidities- CHF, worsening renal function, worsening hepatic function. Long-term prognosis is poor. Palliative care and consideration of eventual transition to hospice discussed with patient and family. Palliative Care team consulted. Anticipated short term need for skilled care to optimize functional status before returning to her son's home. Case Management following. Family Medicine follow-up with Dr. Seymour. Subjective Recheck for multiple medical problems. Patient was seen in her room around 1120. Confusion improved. More alert, conversant. No fever. Still has occasional cough. No SOB. No chest pain. No nausea or vomiting. Having intermittent loose stools on lactulose. Physical Exam 2 Vital Signs (Past 24 Hours): Last Vital Signs Temp 36.7 C 11/18/18 07:48 Pulse 70 11/18/18 07:48 Resp 18 11/18/18 07:48 BP 170/60 H 11/18/18 07:48 Pulse Ox 95 11/18/18 07:48 Constitutional: + frail appearing; no acute distress Respiratory: no respiratory distress Auscultation: + rhonchi (few, scattered) Cardiovascular: Rate/Rhythm: regular rate and regular rhythm Heart Sounds: + gallop (non appreciated) and + murmur (II/ sys murmur LSB) Vessels: no JVD Extremities: + edema (1+); no calf tenderness Gastrointestinal (Abdomen): normal bowel sounds, soft, nontender, no hepatosplenomegaly Skin: no rashes, warm and dry + rash (venous stasis dermatitis lower extremities below knees- improved) Psychiatric: Orientation: alert and oriented x 3 Results & Data Laboratory Results Laboratory Results - last 24 hr 11/18/18 05:36 Sodium 141 Potassium 3.6 Chloride 103 Carbon Dioxide 29 Anion Gap 9.0 BUN 61 H Creatinine 1.72 H D Est Cr Clr Drug Dosing 21.2 Est GFR ( Amer) 30.0 Est GFR (Non-Af Amer) 25.9 BUN/Creatinine Ratio 35.6 H Glucose 125 H Calcium 8.7 _ (1) CHF (congestive heart failure) Heart failure chronicity: unspecified Heart failure type: unspecified Qualified Code(s): I50.9 - Heart failure, unspecified
[2018-11-18] MEDS: CARVEDILOL 3.125 MG TAB PO SCH (21:00)
[2018-11-18] MEDS: POTASSIUM CHLORIDE 10 MEQ TABCR PO SCH (21:02)
[2018-11-18] MEDS: cefTRIAXone SODIUM 1,000 MG in DEXTROSE 5% 50 ML IV SCH (22:11)
[2018-11-19] MEDS: ACETAMINOPHEN 325 MG TAB PO SCH ×3 (01:01→16:47)
[2018-11-19] MEDS: IRON POLYSACCHARIDE COMPLEX 150 MG CAPSULE PO SCH ×2 (08:12→20:59)
[2018-11-19] MEDS: LACTULOSE SYRUP 30 GM/45 ML UDP PO SCH ×2 (08:12→20:58)
[2018-11-19] MEDS: TRIAMCINOLONE ACET 0.5% CR 15 GM TUBE EXT SCH ×2 (08:13→20:59)
[2018-11-19] MEDS: PANTOprazole 40 MG TAB PO SCH (08:14)
[2018-11-19] MEDS: POTASSIUM CHLORIDE 10 MEQ TABCR PO SCH ×2 (08:14→20:59)
[2018-11-19] MEDS: TORSEMIDE 20 MG TAB PO SCH (08:15)
[2018-11-19] MEDS: HEPARIN SOD 5,000 UNIT/0.5 ML VIAL SQ SCH ×2 (08:15→21:01)
--- NOTE | 2018-11-19 14:33 | Hospitalist Progress Note ---
Date of Service November 19, 2018 Assessment & Plan (1) CHF (congestive heart failure): Acute on chronic right heart failure. Received diuretic therapy with IV furosemide and metoloazone with improvement. Weight down 82.1 kg --> 69.2 kg. Transitioned to torsemide. Held diuretics because of worsening renal function. Renal function improving. Resumed torsemide at dose of 80 mg dailiy. (2) Anasarca: Diuretic therapy as noted above. (3) Renal insufficiency: Serum creatinine 2.19 day of admission, cristhian as high as 3.74. CKD III with superimposed HANNAH. Nephrology consulted. Held diuretics. Received IV fluids. Creatinine yesterday = 1.72. Resumed torsemide @ dose of 80 mg daily. Follow. (4) Hypokalemia: K as low as 3.0. Replaced. Liberalized K restriction in diet. K yesterday = 3.6. Follow. (5) Hypertension: Continue carvedilol and diuretics. Follow and titrate Rx. (6) Cough: Congested cough. Son had cold. Afebrile. Chest x-ray 11/08 demonstrated improved pulmonary edema, no infiltrates. Influenza PCR negative. Repeat chest x-ray 11/15- no definite infiltrates (bibasilar densities, probable atelectasis). (7) Hematuria: Secondary to UTI. Holding aspirin and SQ heparin. (8) Urinary tract infection: Developed hematuria 11/12/18. UA showed WBC's and bacteria. Started on IV ceftriaxone. Urine culture grew E coli and Enterobacter aerogenes, both sensitive to ceftriaxone. (9) Anemia: Hgb 8-9. No gross GI bleeding. Probably multifactorial, anemia of chronic kidney disease and other factors. Follow. (10) Altered mental status: Fluctuating mental status since admission. Head CT showed chronic small vessel disease, no acute findings. Metabolic encephalopathy / delirium, multifactorial. (11) Hepatic encephalopathy: Serum ammonia 83 11/15/18.. Hepatic encephalopathy. Suspect hepatic failure due to passive congestion of liver due to right sided CHF. Lactulose started. Encephalopathy improved. (12) Elevated troponin level: Serum troponin slightly elevated. Doubt acute [place]. Favor nonspecific elevation vs demand ischemia. (13) DVT prophylaxis: Received SQ heparin. Developed hematuria. Held heparin. SCD's. Heparin resumed once hematuria resolved. Ambulate as tolerated. (14) Discharge planning issues: Advanced age with comorbidities- CHF, worsening renal function, worsening hepatic function. Long-term prognosis is poor. Palliative care and consideration of eventual transition to hospice discussed with patient and family. Palliative Care team consulted. Anticipated short term need for skilled care to optimize functional status before returning to her son's home. Case Management following. Family Medicine follow-up with Dr. Seymour. Family visiting this afternoon and given update. Subjective Recheck for multiple medical problems. Patient was seen in her room around 0930. Confusion improved. No fever. Minimal cough. No SOB. No chest pain. No nausea or vomiting. Having intermittent loose stools on lactulose. Physical Exam 2 Vital Signs (Past 24 Hours): Last Vital Signs Temp 36.9 C 11/19/18 07:00 Pulse 62 11/19/18 07:00 Resp 23 11/19/18 07:00 BP 156/72 H 11/19/18 07:00 Pulse Ox 95 11/19/18 07:00 Constitutional: + frail appearing; no acute distress Respiratory: normal respiratory effort, lungs clear to auscultation no respiratory distress Cardiovascular: Rate/Rhythm: regular rate and regular rhythm Heart Sounds: + gallop (none appreciated) and + murmur (II/ sys murmur LSB); no cardiac rub Vessels: no JVD Extremities: + edema (1+); no calf tenderness Gastrointestinal (Abdomen): normal bowel sounds, soft, nontender, no hepatosplenomegaly Skin: no rashes, warm and dry + rash (venous stasis dermatitis lower extremities below knees- improved) Psychiatric: Orientation: alert and oriented x 3 _ (1) CHF (congestive heart failure) Heart failure chronicity: unspecified Heart failure type: unspecified Qualified Code(s): I50.9 - Heart failure, unspecified
[2018-11-19] MEDS: CARVEDILOL 3.125 MG TAB PO SCH (20:59)
[2018-11-19] MEDS: cefTRIAXone SODIUM 1,000 MG in DEXTROSE 5% 50 ML IV SCH ×2 (21:01→21:39)
[2018-11-19] MEDS ORDERED: cefTRIAXone SODIUM 1,000 MG in SYRINGE 0 ML IM ONE (22:15)
[2018-11-20] MEDS: ACETAMINOPHEN 325 MG TAB PO SCH ×2 (01:18→08:38)
[2018-11-20 06:24] LABS: Hematocrit (blood only) 30.9 % (37-47); Hemoglobin 9.4 g/dL (12.0-16.0); Mean Corpuscular Hgb Conc 30.4 g/dL (32-36); Mean Corpuscular Volume 83.3 fL (80-100); RDW Coefficient of Variation 24.4 % (11.5-14.5); RDW Standard Deviation 73.4 fL (36.4-46.3); Red Blood Count 3.71 M/uL (4.2-5.4); White Blood Count 3.87 K/uL (4.8-10.8)
[2018-11-20 06:50] LABS: Mean Platelet Volume 9.3 fL (7.4-10.4); Platelet Count 98 K/uL (130-400)
[2018-11-20 06:51] LABS: Platelet Estimate Decreased (Normal)
[2018-11-20 07:02] LABS: BUN Creatinine Ratio 30.1 (10-20); Calcium 8.6 mg/dl (8.5-10.1); Creatinine Clr Calc Pharmacy 21.6 ml/min; Est GFR (African American) 30.7; Est GFR (Non-African American) 26.5; Potassium 3.4 mmol/L (3.5-5.1)
[2018-11-20] MEDS: POTASSIUM CHLORIDE 10 MEQ TABCR PO SCH (08:34)
[2018-11-20] MEDS: PANTOprazole 40 MG TAB PO SCH (08:34)
[2018-11-20] MEDS: TORSEMIDE 20 MG TAB PO SCH (08:34)
[2018-11-20] MEDS: IRON POLYSACCHARIDE COMPLEX 150 MG CAPSULE PO SCH (08:34)
[2018-11-20] MEDS: LACTULOSE SYRUP 30 GM/45 ML UDP PO SCH ×2 (08:34→08:40)
[2018-11-20] MEDS: TRIAMCINOLONE ACET 0.5% CR 15 GM TUBE EXT SCH (08:35)
[2018-11-20] MEDS: HEPARIN SOD 5,000 UNIT/0.5 ML VIAL SQ SCH (08:39)
--- NOTE | 2018-11-20 11:36 | Hospitalist Progress Note ---
Date of Service November 20, 2018 Assessment & Plan (1) CHF (congestive heart failure): Acute on chronic right heart failure. Received diuretic therapy with IV furosemide and metoloazone with improvement. Weight down 82.1 kg --> 69.2 kg. Transitioned to torsemide. Held diuretics because of worsening renal function. Renal function improving. Resumed torsemide at dose of 80 mg daily. Follow labs, fluid status, weights. (2) Anasarca: Diuretic therapy as noted above. (3) Renal insufficiency: Serum creatinine 2.19 day of admission, cristhian as high as 3.74. 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 Nephrology consulted. Held diuretics. Received IV fluids. Creatinine day of discharge 1.69. Resumed torsemide @ dose of 80 mg daily. Follow. (4) Hypokalemia: K as low as 3.0. Replaced. Liberalized K restriction in diet. K day of discharge 3.4. Continue KCl. Follow. (5) Hypertension: Continue carvedilol and diuretics. Follow and titrate Rx. (6) Cough: Congested cough. Son had cold. Afebrile. Chest x-ray 11/08 demonstrated improved pulmonary edema, no infiltrates. Influenza PCR negative. Repeat chest x-ray 11/15- no definite infiltrates (bibasilar densities, probable atelectasis). Oxygenating well on RA. (7) Hematuria: Secondary to UTI. Held aspirin and SQ heparin- resumed without recurrence. (8) Urinary tract infection: Developed hematuria 11/12/18. UA showed WBC's and bacteria. Started on IV ceftriaxone. Urine culture grew E coli and Enterobacter aerogenes, both sensitive to ceftriaxone. Completed course of treatment. (9) Anemia: Hgb 8-9. No gross GI bleeding. Probably multifactorial, anemia of chronic kidney disease and other factors. Hgb day of discharge = 9.4. Follow. (10) Altered mental status: Fluctuating mental status since admission. Head CT showed chronic small vessel disease, no acute findings. Metabolic encephalopathy / delirium, multifactorial. (11) Hepatic encephalopathy: Serum ammonia 83 11/15/18.. Hepatic encephalopathy. Suspect hepatic failure due to passive congestion of liver due to right sided CHF. Lactulose started. Encephalopathy improved. Ammonia day of discharge 44.8. Titrate lactulose to sustain 2-3 stools / day. If patient unable to take lactulose syrup because of its taste, consider Kristalose. (12) Elevated troponin level: Serum troponin slightly elevated. Doubt acute SD. Favor nonspecific elevation vs demand ischemia. (13) DVT prophylaxis: Received SQ heparin. Developed hematuria. Held heparin. SCD's. Heparin resumed once hematuria resolved. Ambulate as tolerated. (14) Discharge planning issues: Advanced age with comorbidities- CHF, worsening renal function, worsening hepatic function. Long-term prognosis is poor. Palliative care and consideration of eventual transition to hospice discussed with patient and family. Palliative Care team consulted. Anticipate short term need for skilled care to optimize functional status before returning to her son's home. Case Management following. Family Medicine follow-up with Dr. Seymour. Family visiting and given update. Subjective Recheck for multiple medical problems. Patient was seen in her room around 0950. Doing well. No fever. Rare cough. No SOB. No chest pain. No nausea or vomiting. Loose stools on lactulose. No urinary symptoms. Physical Exam 2 Vital Signs (Past 24 Hours): Last Vital Signs Temp 36.8 C 11/20/18 08:00 Pulse 60 11/20/18 08:00 Resp 16 11/20/18 08:00 BP 128/71 11/20/18 08:00 Pulse Ox 94 11/20/18 08:00 Constitutional: no acute distress Respiratory: normal respiratory effort, lungs clear to auscultation no respiratory distress Cardiovascular: Rate/Rhythm: regular rate and regular rhythm Heart Sounds: + murmur (II/ sys murmur LSB); no cardiac rub Vessels: + JVD Extremities : + edema (1+); no calf tenderness Gastrointestinal (Abdomen): normal bowel sounds, soft, nontender, no hepatosplenomegaly Musculoskeletal: wearing elastic stockings Skin: no rashes, warm and dry Psychiatric: Orientation: alert and oriented x 3 _ (1) CHF (congestive heart failure) Heart failure chronicity: unspecified Heart failure type: unspecified Qualified Code(s): I50.9 - Heart failure, unspecified
--- NOTE | 2018-11-20 12:27 | Discharge Summary ---
Date of Service Date of admission: 10/31/18 Date of discharge: 11/20/18 Admission HPI Per Admitting Provider This is a 88 yo F with PMHx of HTN, HLD, CHF, baseline kidney disease, recent history of pneumonia. Discussion was held with her son over the phone as the patient is unable to provide adequate history. Pt was recently admitted to [facility] for about 6 weeks for possible cellulitis and pneumonia as well as CHF exacerbation. She was recently discharged from inpatient rehab on 10/27/18 and went to live with her son, Skyler in [place]. Prior to this admission at [facility] she was living at home by herself. Today the pt breathing worsened while sitting at rest, but had been progressively getting worse over the past ~3d. Patient is poorly compliant with fluid restriction guidelines and sodium restriction despite her excess of fluid and has chronically dry mouth. Patient's son notes she has had increased confusion as well with baseline difficulty with recall of events and lack of short term memory. She does use a walker at baseline. Does not require supplemental O2. Pt had increased nausea and vomiting, diarrhea which started last evening and called 911 this morning. Pts son and were home but report she did not remember that she was in her son's house, and thought that she was alone. Admission Exam Per Admitting Provider General: awake, alert, complaining of catheter, unable to provide history. Head: Normocephalic, atraumatic ENT: PERRL, EOMI, no pharyngeal exudate, mucous membranes dry Chest: + on 3L via NC, + crackles throughout, faint inspiratory wheeze Cardiac: Regular rate and rhythm, HR in 60s, faint murmur, 2+ JVD, normal peripheral pulses, good capillary refill, vertical chest scar and pacer in the L chest wall. Abdominal: + anasarca, NABS x 4 quadrants, +distended, nontender to light palpation, + grimace with deep palpation, no rebound, guarding or tenderness Extremities: +gross edema with 2+ pitting throughout BLE, no peripheral edema or erythema, calfs nontender to palpation Neuro: AA, oriented to self, not to date or place. speech is clear, + difficulty with recall of events, short-term memory Principal Diagnosis acute on chronic CHF (right-sided heart failure and left ventricular diastolic heart failure) pulmonary hypertension hypertension acute kidney injury CKD IV hypokalemia metabolic / hepatic encephalopathy urinary tract infection- E coli and Enterobacter aerogenes anemia Discharge Data Allergies Allergy/AdvReac Type Severity Reaction Status Date / Time celecoxib Allergy Intermediate . Unverified 10/31/18 10:50 estrogens, conjugated Allergy Intermediate . Unverified 10/31/18 10:50 levofloxacin Allergy Intermediate . Unverified 10/31/18 10:50 nitrofurantoin Allergy Intermediate . Unverified 10/31/18 10:50 quinidine Allergy Intermediate HEART Unverified 10/31/18 10:50 ALMOST STOPPED tetanus toxoid, adsorbed Allergy Intermediate HIVES Unverified 10/31/18 10:50 sulfisoxazole AdvReac Intermediate HEADACHE Unverified 10/31/18 10:50 Consultations 10/31/18 12:46 ED Decision to Admit Stat 10/31/18 17:05 Consult Case Management - Discharge Planning Routine Consult Health Information Management Stat 10/31/18 20:51 Consult Cardiology Routine 11/01/18 07:00 Consult Nephrology Routine 11/02/18 17:28 Consult Palliative Care Routine 11/03/18 15:29 Consult Case Management - Discharge Planning Routine Ordered Studies 10/31/18 09:17 CT abd pelvis wo con Stat 11/15/18 04:26 CT head/brain wo con Urgent Hospital Course (1) CHF (congestive heart failure): Acute on chronic right heart failure. Received diuretic therapy with IV furosemide and metoloazone with improvement. Weight down 82.1 kg --> 69.2 kg. Transitioned to torsemide. Held diuretics because of worsening renal function. Renal function improving. Resumed torsemide at dose of 80 mg daily. Follow labs, fluid status, weights. (2) Anasarca: Diuretic therapy as noted above. (3) Renal insufficiency: Serum creatinine 2.19 day of admission, cristhian as high as 3.74. 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 Nephrology consulted. Held diuretics. Received IV fluids. Creatinine day of discharge 1.69. Resumed torsemide @ dose of 80 mg daily. Follow. (4) Hypokalemia: K as low as 3.0. Replaced. Liberalized K restriction in diet. K day of discharge 3.4. Continue KCl. Follow. (5) Hypertension: Continue carvedilol and diuretics. Follow and titrate Rx. (6) Cough: Congested cough. Son had cold. Afebrile. Chest x-ray 11/08 demonstrated improved pulmonary edema, no infiltrates. Influenza PCR negative. Repeat chest x-ray 11/15- no definite infiltrates (bibasilar densities, probable atelectasis). Oxygenating well on RA. (7) Hematuria: Secondary to UTI. Held aspirin and SQ heparin- resumed without recurrence. (8) Urinary tract infection: Developed hematuria 11/12/18. UA showed WBC's and bacteria. Started on IV ceftriaxone. Urine culture grew E coli and Enterobacter aerogenes, both sensitive to ceftriaxone. Completed course of treatment. (9) Anemia: Hgb 8-9. No gross GI bleeding. Probably multifactorial, anemia of chronic kidney disease and other factors. Hgb day of discharge = 9.4. Follow. (10) Altered mental status: Fluctuating mental status since admission. Head CT showed chronic small vessel disease, no acute findings. Metabolic encephalopathy / delirium, multifactorial. Avoid medications with anticholinergic side-effects. (11) Hepatic encephalopathy: Serum ammonia 83 11/15/18.. Hepatic encephalopathy. Suspect hepatic failure due to passive congestion of liver due to right sided CHF. Lactulose started. Encephalopathy improved. Ammonia day of discharge 44.8. Titrate lactulose to sustain 2-3 stools / day. If patient unable to take lactulose syrup because of its taste, consider Kristalose. (12) Elevated troponin level: Serum troponin slightly elevated. Doubt acute [place]. Favor nonspecific elevation vs demand ischemia. (13) DVT prophylaxis: Received SQ heparin. Developed hematuria. Held heparin. SCD's. Heparin resumed once hematuria resolved. Ambulate as tolerated. (14) Discharge planning issues: Advanced age with comorbidities- CHF, worsening renal function, worsening hepatic function. Long-term prognosis is poor. Palliative care and consideration of eventual transition to hospice discussed with patient and family. Palliative Care team consulted. Anticipate short term need for skilled care to optimize functional status before returning to her son's home. Case Management following. Family Medicine follow-up with Dr. Seymour. Family visiting and given update. Total Time Total Time Spent Total Time Spent (In Minutes): 50 Discharge Plan Discharge Items Patient Disposition: Transfer [facility] Reason For Visit: CHF Discharge Diagnosis: CHF, anasarca, renal failure, altered mental status Condition: Fair Discharge Goals: Decrease discomfort and Improve disease control Activity: As commented below Activity Comment: with walker and assistance Non-emergency contact: Primary Care Provider, Hospitalist and Awning Finisher Call non-emergency contact if: you have any medication questions and your symptoms worsen Diet: Heart Healthy Addtl Provider Instructions: FOLLOW-UP APPOINTMENTS FAMILY MEDICINE Dr. Seymour Please call office for appointment at time of discharge. NEPHROLOGY Dr. Finn Please call office for appointment at time of discharge. Fall precautions. Aspiration precautions. Delirium precautions. Skin precautions. Knee-high elastic stockings during day. Basic metabolic profile 11/23/18, then every Tuesday. Please send copies to Dr. Finn ([facility]). Please note POLST instructions. Thank you for receiving this patient in transfer. Please call if you have any questions. Regis Delgadillo Prescriptions: New triamcinolone acetonide 0.5 % Cream 1 applic EXT BID PRN (Reason: rash) Qty: 15 RF: 0 torsemide 20 mg Tablet 80 mg PO QAM Qty: 120 RF: 0 potassium chloride [Klor-Con M10] 10 mEq Tablet,Er Particles/Crystals 10 meq PO BID Qty: 60 RF: 0 lactulose 20 gram/30 mL Solution 20 gm PO BID Qty: 1500 RF: 0 Continue acetaminophen 325 mg Tablet 325 mg PO Q6H PRN (Reason: Pain) RF: 0 aspirin 81 mg Tablet,Delayed Release (Dr/Ec) 81 mg PO QAM RF: 0 carvedilol [Coreg] 3.125 mg tablet 3.125 mg PO HS RF: 0 magnesium hydroxide [Milk of Magnesia] 400 mg/5 mL Suspension 30 ml PO DAILY PRN (Reason: Constipation) RF: 0 pantoprazole [Protonix] 40 mg Tablet,Delayed Release (Dr/Ec) 40 mg PO QAM RF: 0 iron [id number] [Niferex (Sumalate-Quatrefolic)] 150 mg iron- 60 mg-1 mg Tablet 1 tab PO BID RF: 0 Discontinued torsemide [Demadex] 20 mg Tablet 20 mg PO BID RF: 0 bacitracin 500 unit/gram Ointment 1 applic TOPICAL DAILY PRN (Reason: REMOVAL OF PICC) RF: 0 potassium chloride [Klor-Con 10] 10 mEq tablet extended release 10 meq PO QAM RF: 0 diphenhydramine HCl [Benadryl] 25 mg Capsule 25 mg PO Q8 PRN (Reason: Itching) RF: 0 pravastatin [Pravachol] 20 mg tablet 20 mg PO HS RF: 0 dextromethorphan-guaifenesin [Robitussin Cough-Chest Joseph DM] 5-100 mg/5 mL Liquid 10 ml PO Q4 PRN (Reason: Cough) RF: 0 losartan [Cozaar] 100 mg tablet 100 mg PO QAM RF: 0 phenyleph-min oil-petrolatum [Preparation H] 0.25-14-74.9 % Ointment 1 applic NM BID PRN (Reason: Itching) RF: 0 Stand-Alone Forms: [facility] Skilled Items Patient informed of condition?: Yes DNR: Yes Discharge Level of Care: Skilled Communicable Disease: No Discharge Prognosis: Improving Admission Data Admit Date/Time: 10/31/18 13:51 Attending Provider: Regis Delgadillo Admit Provider: Mady Roy Primary Care Provider: PCP,NO Other Providers: Felipe Jolley ; Mady Roy ; Kirk Hernandez ; Rosa Garcia ; Ana Ulloa Service: Medical Other Interventions: Discharge Summary Assessment (RN) Last Done: 11/20/18 11:52
== END 2018-11-20 14:44 | DRG 291 ==
LOC: ED 09:00 → SUATTDRO 13:51 → 2E 13:51 → 4E 11-16 12:08

== ENCOUNTER 2018-12-27 06:40 | Observation (INO) ==
--- NOTE | 2018-12-27 06:58 | Emergency Department Note ---
Entered by Maisha Dennison acting as a scribe for Santi Downing DO History of Present Illness General Chief complaint: Fall Time Seen by Provider: 12/27/18 06:41 Source: patient Mode of arrival: EMS History of Present Illness Provider complaint: fall Onset (ago): hour(s) 6 Location: left and right Pain Consistency: + other (episode) Quality: + other (fall) Associated symptoms: + other (back pain, swollen legs) The patient is an 88 year old female who presents to the Emergency Room with complaints of an episode of a fall beginning 6 hours ago. Nursing staff reports the patient fell from her wheelchair, and it is unclear if she lost consciousness. The patient reports mid-back pain. She states her legs are swollen, which nursing staff notes is chronic. Home Medications Home Medications Medication Instructions Recorded Confirmed Type No Known Home Medications 12/27/18 12/27/18 History Allergies Allergy/AdvReac Type Severity Reaction Status Date / Time celecoxib Allergy Intermediate . Unverified 12/27/18 06:56 estrogens, conjugated Allergy Intermediate . Unverified 12/27/18 06:56 levofloxacin Allergy Intermediate . Unverified 12/27/18 06:56 nitrofurantoin Allergy Intermediate . Unverified 12/27/18 06:56 quinidine Allergy Intermediate HEART Unverified 12/27/18 06:56 ALMOST STOPPED tetanus toxoid, adsorbed Allergy Intermediate HIVES Unverified 12/27/18 06:56 sulfisoxazole AdvReac Intermediate HEADACHE Unverified 12/27/18 06:56 Past Med/Surg History Medical History HTN (hypertension) (Chronic) Surgical History Pacemaker (Chronic) Family History Other No pertinent family history Social History Preferred Language: Occitan Beliefs That Will Affect Care: None Current Living Situation: Family Feels Safe at Home: Yes Smoking Status: Never smoker Hx Alcohol Use: No Hx Substance Use: No Review of Systems See HPI for pertinent positives & negatives. and A total of 10 systems reviewed and were otherwise negative Physical Exam Vital Signs Vital Signs - 24 hr 12/27/18 06:41 12/27/18 07:00 12/27/18 07:55 Temperature 36.4 C L Temperature Source Oral Sepsis Recent Fever Within 48 Hours No Sepsis Action Taken by Nursing No Action Required Pulse Rate 66 Pulse Rate [Apical] 60 Pulse Rate from SpO2 Sensor Pulse Rhythm Regular Pulse Strength Normal Respiratory Rate 18 20 Respiratory Effort / Characteristics Non-Labored Spontaneous Respiratory Depth Normal Blood Pressure 137/52 L Blood Pressure [Left Arm] 131/64 Blood Pressure Mean 80 Blood Pressure Mean [Left Arm] 86 Pulse Oximetry 92 92 92 Oxygen Delivery Method Room Air Room Air Room Air 12/27/18 08:00 12/27/18 08:30 Temperature Temperature Source Sepsis Recent Fever Within 48 Hours Sepsis Action Taken by Nursing Pulse Rate 62 61 Pulse Rate [Apical] Pulse Rate from SpO2 Sensor 62 61 Pulse Rhythm Pulse Strength Respiratory Rate 14 18 Respiratory Effort / Characteristics Respiratory Depth Blood Pressure 140/48 L 128/42 L Blood Pressure [Left Arm] Blood Pressure Mean 78 70 Blood Pressure Mean [Left Arm] Pulse Oximetry 92 92 Oxygen Delivery Method CONSTITUTIONAL/VITAL SIGNS: Reviewed / noted above. GENERAL: Non-toxic in appearance. INTEGUMENTARY: Warm, dry, and [place]. HEAD: Normocephalic. Two small contusions/abrasions to posterior head. EYES: without scleral icterus or trauma. ENT/OROPHARYNX: clear and moist. LYMPHADENOPATHY/NECK: Is supple without lymphadenopathy or meningismus. RESPIRATORY: Lungs clear and equal. CARDIOVASCULAR: Regular rate and rhythm. GI/ABDOMEN: Soft and nontender. No organomegaly or pulsatile mass. No rebound or guarding. Normal bowel sounds. EXTREMITIES: Warm and well perfused. Contusion to right posterior shoulder. Chronic lower extremity edema BACK: Nonspecific tenderness to entire spine. NEUROLOGICAL: Intact without focal deficits. PSYCHIATRIC: normal affect. MUSCULOSKELETAL: Normally developed with good muscle tone. Course 0642: Past medical records reviewed. The patient was evaluated in room C9, and a complete history and physical examination were performed. 0832: I spoke with the patient's son who states that the patient would not want neurosurgery if it was needed, however, he requested that the patient be observed here. 0845: I reviewed the patient's case with Felisha Ontiveros PA-C. She will evaluate the patient for further management. Consultations Consultation #1: Felisha Ontiveros PA-C Time: 08:45 Administered Medications Discontinued Medications Acetaminophen (Tylenol) 650 mg PO NOW STA Stop: 12/27/18 07:37 Last Admin: 12/27/18 07:45 Dose: 650 mg Documented by: [id number] Medical Decision Making Differential Diagnosis Differential includes acute cardiac dysrhythmia, microinfarction, CVA, TIA, dehydration, anemia, electrolyte disturbance, seizure, trauma, intracranial bleeding, acute vascular catastrophe, thoracic aortic dissection, PE, abdominal aortic aneurysm rupture, ectopic rupture. Medical Records Attestation: I reviewed the patient's medical records. Home Medications Current Medication List: was personally reviewed by me Imaging Data Radiologist's Impression: Radiology results as stated below per my review and the radiologist's interpretation: CT OF THE HEAD WITHOUT CONTRAST CLINICAL HISTORY: Fall. COMPARISON STUDY: Head CT November 15, 2018. TECHNIQUE: Helical axial images of the head were obtained without IV contrast. Automated exposure control was utilized for the study. A dose lowering technique was utilized adhering to the principles of ALARA. FINDINGS: Note is made of a 1.1 cm hyperdense intraparenchymal focus at the right frontoparietal convexity which is new since head CT of November 15, 2018. This represents hemorrhage. No additional sites of hemorrhage are present. Ventricular system is normal. The basilar cisterns are patent. There are no extra axial collections. No chondral fracture is present. Trace fluid within the left mastoid air cells is noted. IMPRESSION: 1. 1.1 cm intraparenchymal focus of acute hemorrhage at the right frontoparietal convexity which suggests a hemorrhagic contusion which is new since head CT of November 15, 2018. No additional sites of intracranial hemorrhage. 2. No calvarial fracture. Electronically signed by: Fredy Larson M.D. 12/27/2018 7:[address] SCAN OF THE LUMBAR SPINE WITHOUT IV CONTRAST CLINICAL HISTORY: Fall with low back pain. COMPARISON STUDY: Radiographs of the lumbar spine dated 04/26/2017. Abdominal CT dated 10/31/2018. TECHNIQUE: CT scan of lumbar spine is performed from the lower thoracic spine to the sacrum. Images are reviewed in the axial, sagittal, and coronal planes. IV contrast was not administered for this examination. The examination is degraded by motion artifact. A dose lowering technique was utilized adhering to the principles of ALARA. FINDINGS: The skeletal structures are osteopenic. There is no evidence of fracture or malalignment involving the lumbar spine. Vertebral body height and alignment are maintained. Lumbar levocurvature is centered at L3. Anterior and lateral marginal osteophytes are seen throughout. The transverse and spinous processes appear intact. No lytic or blastic lesion is seen. There is no evidence of spondylolysis. Moderate to advanced disc space narrowing is seen at all levels. There is no evidence of large disc herniation by CT. Posterior disc osteophyte complexes are seen at all lumbar levels. Moderate facet arthropathy is seen in the lower lumbar region. The visualized sacrum and bony pelvis are intact as imaged. There is fatty atrophy of the paraspinous musculature. Advanced atherosclerotic calcification is noted in the abdominal aorta. Bilateral pleural effusions are partially imaged. There is no retroperitoneal lymphadenopathy. The visualized kidneys demonstrate cortical atrophy. IMPRESSION: 1. There is no evidence of fracture or malalignment involving the lumbar spine. 2. Osteopenia with lumbosacral spondylosis and scoliosis as above. Electronically signed by: Kian Hassan M.D. 12/27/2018 7:[address] OF THE CERVICAL SPINE CLINICAL HISTORY: Neck pain status post trauma COMPARISON STUDY: No previous studies for comparison. CT DOSE: 3209.56 mGy.cm TECHNIQUE: CT scan of the cervical spine was performed from the skull base to the thoracic inlet. Images are reviewed in the axial, sagittal, and coronal planes. IV contrast was not administered for this examination. A dose lowering technique was utilized adhering to the principles of ALARA. FINDINGS: The visualized portions of the lung apices reveal no evidence of pneumothorax. The prevertebral soft tissues are normal. No fractures or traumatic subluxations are visualized. There are multilevel degenerative changes. 3 mm of anterior subluxation of C4 on C5 is felt to be degenerative. There is fusion of the C5-C6 and C7 vertebra. IMPRESSION: No evidence of acute fracture or traumatic subluxation. Electronically signed by: Remigio Liu M.D. 12/27/2018 7:[address] OF THE THORACIC SPINE WITHOUT CONTRAST CLINICAL HISTORY: Pain following fall. COMPARISON STUDY: No previous studies for comparison. TECHNIQUE: Axial images of the thoracic spine were obtained without IV contrast. Sagittal and coronal reconstructions were performed. Study was performed utilizing automated exposure control for dose reduction and according to ALARA principles. FINDINGS: Alignment of the thoracic spine is anatomic. Vertebral body heights are maintained. There is no acute fracture. There is mild multilevel disc space narrowing with extensive anterior osteophytosis within the thoracic spine. Facet joints are intact. There is no fracture within visualized portions of the posterior ribs. Central canal and neural foramen are suboptimally assessed by CT. Moderate right and small left pleural effusions are noted. There is mild pulmonary edema. Moderate cardiomegaly is noted. Pacer leads are partially imaged. There is a prosthetic aortic valve. There is evidence for volume overload. IMPRESSION: 1. No acute thoracic spine fracture or subluxation. 2. Extensive anterior osteophytosis of the thoracic spine. Mild multilevel disc space narrowing. 3. Moderate right and small left pleural effusions with associated airspace opacities which favor atelectasis. Mild pulmonary edema. 3. Moderate cardiomegaly. Electronically signed by: Fredy Larson M.D. 12/27/2018 8:12 AM SINGLE VIEW CHEST CLINICAL HISTORY: Fall. FINDINGS: An AP, portable, upright chest radiograph is compared to study dated 11/15/2018. The examination is degraded by portable technique and patient rotation. The patient is status post midline sternotomy. A 2-lead cardiac pacemaker is unchanged in position. The heart is enlarged and there is atherosclerotic calcification of the thoracic aorta. The pulmonary vasculature is noncongested. There are small pleural effusions with bibasilar consolidation. No pneumothorax is seen. The skeletal structures are osteopenic. There are healed right-sided rib fractures. Advanced degenerative change and chronic rotator cuff injuries are noted in the shoulders. IMPRESSION: 1. Cardiomegaly and cardiac pacemaker. There is no radiographic evidence of congestive failure. 2. There are small pleural effusions with bibasilar consolidation. This likely represents atelectasis. Clinical correlation will be required. Electronically signed by: Kian Hassan M.D. 12/27/2018 7:18 AM Blood Pressure Blood Pressure Findings: Low blood pressure Blood Pressure Disposition: further management by hospitalist Head Trauma GCS Score: 15 MDM Narrative This is an 88-year-old female who presents to the ED with a chief complaint of a fall out of a wheelchair. This occurred around 1 AM. The patient was complaining of some back pain at that time but started complaining of neck pain this morning and was sent to the ED for evaluation. The patient is a poor historian. The patient has a small contusion/abrasion to the back of the head. There is a contusion to the right posterior shoulder. She also has tenderness to palpation of the entire spine. There is no reported loss of consciousness. The patient has no other complaints. She does have chronic pedal edema. The CT scan of the brain reveals a 1.1 cm cerebral contusion. A chest x-ray was negative for acute disease. CT scan of the cervical, thoracic and lumbar spine did not show acute traumatic injury. Chest x-ray was negative for acute disease. I spoke with the sonSkyler on the phone about his mother. His phone number is [phone]. He states that he was speaking with the hospice nurse about starting the patient on hospice yesterday. This is not been completely set up but this is the plan. He was advised of the intracranial hemorrhage and preferred that the patient not be sent anywhere and just be observed here. He states that she would not want neurosurgical intervention if it were necessary. I spoke with the hospitalist, who will see the patient for further inpatient evaluation and care. Impression & Plan Cerebral contusion, Fall Discharge Plan Visit Data Chief Complaint: Fall ED Provider: Santi Downing Discharge Problem: Cerebral contusion, Fall Patient Disposition: Being Evaluated by Hospitalist Forms Stand Alone Forms: My [facility] [employer] Prescriptions Prescriptions: No Action No Known Home Medications RF: 0 Referrals Referrals: Yazmin Stock DO [Primary Care Provider] - Discharge Problem: Cerebral contusion Qualifiers: Encounter type: initial encounter Laterality: right Loss of consciousness presence/duration: without LOC Qualified Code(s): S06.310A - Contusion and laceration of right cerebrum without loss of consciousness, initial encounter Fall Qualifiers: Encounter type: initial encounter Qualified Code(s): W19.XXXA - Unspecified fall, initial encounter The scribe's documentation has been prepared under my direction and personally reviewed by me in its entirety. I confirm that the note above accurately reflects all work, treatment, procedures, and medical decision making performed by me.
--- NOTE | 2018-12-27 07:19 | XRay Report ---
SINGLE VIEW CHEST CLINICAL HISTORY: Fall. FINDINGS: An AP, portable, upright chest radiograph is compared to study dated 11/15/2018. The examina tion is degraded by portable technique and patient rotation. The patient is status post midline arango otomy. A 2-lead cardiac pacemaker is unchanged in position. The heart is enlarged and there is athero sclerotic calcification of the thoracic aorta. The pulmonary vasculature is noncongested. There are s mall pleural effusions with bibasilar consolidation. No pneumothorax is seen. The skeletal structures are osteopenic. There are healed right-sided rib fractures. Advanced degenerative change and chronic rotator cuff injuries are noted in the shoulders. IMPRESSION: 1. Cardiomegaly and cardiac pacemaker. There is no radiographic evidence of congestive failure. 2. There are small pleural effusions with bibasilar consolidation. This likely represents atelectasis . Clinical correlation will be required. Electronically signed by: Kian Hassan M.D. 12/27/2018 7:18 AM
[2018-12-27] MEDS ORDERED: ACETAMINOPHEN 325 MG TAB PO STA (07:36)
--- NOTE | 2018-12-27 07:57 | CT Scan Report ---
CT OF THE CERVICAL SPINE CLINICAL HISTORY: Neck pain status post trauma COMPARISON STUDY: No previous studies for comparison. CT DOSE: 3209.56 mGy.cm TECHNIQUE: CT scan of the cervical spine was performed from the skull base to the thoracic inlet. Juany ges are reviewed in the axial, sagittal, and coronal planes. IV contrast was not administered for thi s examination. A dose lowering technique was utilized adhering to the principles of ALARA. FINDINGS: The visualized portions of the lung apices reveal no evidence of pneumothorax. The prevertebral soft tissues are normal. No fractures or traumatic subluxations are visualized. There are multilevel degenerative changes. 3 mm of anterior subluxation of C4 on C5 is felt to be deg enerative. There is fusion of the C5-C6 and C7 vertebra. IMPRESSION: No evidence of acute fracture or traumatic subluxation. Electronically signed by: Remigio Liu M.D. 12/27/2018 7:55 AM
--- NOTE | 2018-12-27 08:00 | CT Scan Report ---
CT OF THE HEAD WITHOUT CONTRAST CLINICAL HISTORY: Fall. COMPARISON STUDY: Head CT November 15, 2018. TECHNIQUE: Helical axial images of the head were obtained without IV contrast. Automated exposure con trol was utilized for the study. A dose lowering technique was utilized adhering to the principles o f ALARA. FINDINGS: Note is made of a 1.1 cm hyperdense intraparenchymal focus at the right frontoparietal conv exity which is new since head CT of November 15, 2018. This represents hemorrhage. No additional sites of hemorrhage are present. Ventricular system is normal. The basilar cisterns are patent. There are no extra axial collections. No chondral fracture is present. Trace fluid within the left mastoid air cells is noted. IMPRESSION: 1. 1.1 cm intraparenchymal focus of acute hemorrhage at the right frontoparietal convexity which sugg ests a hemorrhagic contusion which is new since head CT of November 15, 2018. No additional sites of i ntracranial hemorrhage. 2. No calvarial fracture. Electronically signed by: Fredy Larson M.D. 12/27/2018 7:59 AM
--- NOTE | 2018-12-27 08:00 | CT Scan Report ---
CT SCAN OF THE LUMBAR SPINE WITHOUT IV CONTRAST CLINICAL HISTORY: Fall with low back pain. COMPARISON STUDY: Radiographs of the lumbar spine dated 04/26/2017. Abdominal CT dated 10/31/2018. TECHNIQUE: CT scan of lumbar spine is performed from the lower thoracic spine to the sacrum. Images a re reviewed in the axial, sagittal, and coronal planes. IV contrast was not administered for this exa mination. The examination is degraded by motion artifact. A dose lowering technique was utilized adhe ring to the principles of ALARA. FINDINGS: The skeletal structures are osteopenic. There is no evidence of fracture or malalignment in volving the lumbar spine. Vertebral body height and alignment are maintained. Lumbar levocurvature is centered at L3. Anterior and lateral marginal osteophytes are seen throughout. The transverse and sp inous processes appear intact. No lytic or blastic lesion is seen. There is no evidence of spondyloly sis. Moderate to advanced disc space narrowing is seen at all levels. There is no evidence of large d isc herniation by CT. Posterior disc osteophyte complexes are seen at all lumbar levels. Moderate fac et arthropathy is seen in the lower lumbar region. The visualized sacrum and bony pelvis are intact a s imaged. There is fatty atrophy of the paraspinous musculature. Advanced atherosclerotic calcificati on is noted in the abdominal aorta. Bilateral pleural effusions are partially imaged. There is no ret roperitoneal lymphadenopathy. The visualized kidneys demonstrate cortical atrophy. IMPRESSION: 1. There is no evidence of fracture or malalignment involving the lumbar spine. 2. Osteopenia with lumbosacral spondylosis and scoliosis as above. Electronically signed by: Kian Hassan M.D. 12/27/2018 7:58 AM
--- NOTE | 2018-12-27 08:13 | CT Scan Report ---
CT OF THE THORACIC SPINE WITHOUT CONTRAST CLINICAL HISTORY: Pain following fall. COMPARISON STUDY: No previous studies for comparison. TECHNIQUE: Axial images of the thoracic spine were obtained without IV contrast. Sagittal and coronal reconstructions were performed. Study was performed utilizing automated exposure control for dose re duction and according to ALARA principles. FINDINGS: Alignment of the thoracic spine is anatomic. Vertebral body heights are maintained. There i s no acute fracture. There is mild multilevel disc space narrowing with extensive anterior osteophyto sis within the thoracic spine. Facet joints are intact. There is no fracture within visualized portio ns of the posterior ribs. Central canal and neural foramen are suboptimally assessed by CT. Moderate right and small left pleural effusions are noted. There is mild pulmonary edema. Moderate cardiomegal y is noted. Pacer leads are partially imaged. There is a prosthetic aortic valve. There is evidence f or volume overload. IMPRESSION: 1. No acute thoracic spine fracture or subluxation. 2. Extensive anterior osteophytosis of the thoracic spine. Mild multilevel disc space narrowing. 3. Moderate right and small left pleural effusions with associated airspace opacities which favor ate lectasis. Mild pulmonary edema. 3. Moderate cardiomegaly. Electronically signed by: Fredy Larson M.D. 12/27/2018 8:12 AM
--- NOTE | 2018-12-27 09:04 | XRay Report ---
XR chest 1V portable CLINICAL HISTORY: Atypical chest pain COMPARISON STUDY: 12/27/2018 FINDINGS: The heart remains enlarged. There is a left subclavian dual-chamber central venous pacemake r. There is radiographic evidence of congestive failure/fluid overload. There are small bilateral ple ural effusions. There is no lobar consolidation.[ Bibasilar opacities remain stable and likely repres enting compressive atelectasis IMPRESSION: Cardiomegaly and radiographic evidence of mild congestive failure/fluid overload with sma ll bilateral pleural effusions and associated basilar opacities Electronically signed by: Remigio Liu M.D. 12/27/2018 9:02 AM
[2018-12-27 09:21] LABS: INR 1.2 (0.9-1.1); Prothrombin Time 12.1 Seconds (9.0-12.0)
[2018-12-27 09:28] LABS: Albumin Level 3.2 gm/dl (3.4-5.0); BUN Creatinine Ratio 28.3 (10-20); Calcium 8.8 mg/dl (8.5-10.1); Creatinine Clr Calc Pharmacy 14.3 ml/min; Est GFR (African American) 18.2; Est GFR (Non-African American) 15.7; Potassium 4.4 mmol/L (3.5-5.1)
[2018-12-27 09:37] LABS: Albumin Globulin Ratio 0.7 (0.9-2); Bilirubin,Total 0.8 mg/dl (0.2-1); Globulin 4.9 gm/dl (2.5-4.0); Total Protein 8.1 gm/dl (6.4-8.2)
[2018-12-27 09:45] LABS: Hematocrit (blood only) 27.4 % (37-47); Hemoglobin 8.5 g/dL (12.0-16.0); Mean Corpuscular Volume 79.7 fL (80-100); Mean Platelet Volume 9.8 fL (7.4-10.4); Platelet Count 159 K/uL (130-400); RDW Coefficient of Variation 20.8 % (11.5-14.5); RDW Standard Deviation 58.6 fL (36.4-46.3); Red Blood Count 3.44 M/uL (4.2-5.4); White Blood Count 6.53 K/uL (4.8-10.8)
--- NOTE | 2018-12-27 10:33 | History & Physical Report ---
Date of Service December 27, 2018 Assessment & Plan (1) Fall: (2) Cerebral contusion: This is a 88 year old female who has a significant PMH CKD stage 4, Right sided CHF, HTN, Anemia of chronic disease, hx of sick sinus syndrome s/p pacer, hepatic encephalopathy, pulmonary HTN who presents to [facility] ED s/p fall at [facility] that was unwitnessed. In ED Trauma work up revealed 1.1 cm intraparenchymal focus of acute hemorrhage at the right frontoparietal convexity which suggests a hemorrhagic contusion. Findings discussed with Son, Skyler who wishes patient be admitted overnight for observation and repeat CT in a.m. Pt recently transitioned to hospice service and son would not like patient transferred from facility and is requesting comfort care only He does not wish to pursue neurosurgical eval at tertiary facility He confirms patient DNR/DNI Further work up revealed HANNAH/CKD, hyperammonemia, and anemia of chronic disease as discussed below (3) Acute kidney injury superimposed on CKD: -baseline cr 1.7-2.0 -BUN 74 and cr 2.60 -hold diuretics and repeat lab in a.m. (4) CKD (chronic kidney disease), stage IV: (5) Hepatic encephalopathy: -on lactulose bid, NH3 62. -son feels more confused past week and requesting follow up NH3 levels, was 88 on prior admission -increase to tid, hold for more than 4 BM/24hrs (6) Anemia of renal disease: -H/H stable 8.5/27.4 -on iron supplement -recent iron study revealed iron 24, T sat 7, TIBC 327 (7) CHF (congestive heart failure): -no acute exacerbation -Last echo 10/2018 revealed EF 55%, severe right sided systolic dysfunction, mild pulm HTN -weight up to 79.5KG, previously was 69.2kg at discharge and with elevated renal function -holding torsemide and demadex in setting of worsened renal function (8) Hypertension: -blood pressure on lower side, hold diuretics but continue coreg (9) Pacemaker: (10) Hospice care: -[facility] for end stage CHF (11) DNR (do not resuscitate): (12) DVT prophylaxis: -SCDS given cerebral contusion Disposition: if stable likely d/c back to SNF in a.m. and return under hospice care Follow up: PCP Dr. Stock upon discharge Patient was seen in collaboration with Dr. Wilson, please see addendum Starting 12/28/18 patient will be under the care of Dr. Campa History of Present Illness Chief Complaint: Fall at [facility]. Primary Care Provider: Yazmin Stock DO This is a 88 year old female who has a significant PMH CKD stage 4-5, Right sided CHF, HTN, Anemia of chronic disease, hx of sick sinus syndrome s/p pacer, hepatic encephalopathy, pulmonary HTN who presents to [facility] ED s/p fall at [facility] that was unwitnessed. longterm staff found patient sitting up against closet, 2 abrasions to back of head and incontinent complaining of back pain; therefore, referred to ED for further evaluation. ROS unreliable given patient cognitive status. No family is at bedside; however, son Skyler was contacted. According to patient's son he met with hospice yesterday given patient's chronic and end-stage CHF and CKD. Subsequently patient recently hospitalized 10/31 to 11/20/18. Hospitalized secondary to acute on chronic right heart failure, renal insufficiency UTI, hepatic encephalopathy felt secondary to passive congestion from CHF in which lactulose was started. Cognitive status improved with lactulose. She was then discharged to subacute rehab at [facility]. During her last admission patient and son did meet with palliative care in which DNR/DNI was determined and hospice care was promoted. Patient currently denies any pain, but is requesting ice chips. Denies any chest pain, sob, cough, f/c/s but again unreliable. Patient does have chronic lower ext and upper ext swelling which is unchanged per nursing facility. She has had weight gain since last admission now 79.5 kg, was 69kg at last d/c. Allergies Allergy/AdvReac Type Severity Reaction Status Date / Time celecoxib Allergy Intermediate . Unverified 12/27/18 06:56 estrogens, conjugated Allergy Intermediate . Unverified 12/27/18 06:56 levofloxacin Allergy Intermediate . Unverified 12/27/18 06:56 nitrofurantoin Allergy Intermediate . Unverified 12/27/18 06:56 quinidine Allergy Intermediate HEART Unverified 12/27/18 06:56 ALMOST STOPPED tetanus toxoid, adsorbed Allergy Intermediate HIVES Unverified 12/27/18 06:56 sulfisoxazole AdvReac Intermediate HEADACHE Unverified 12/27/18 06:56 Home Medications Home Medications Medication Instructions Recorded Confirmed Type aspirin [Aspir-81] 81 mg PO DAILY 12/27/18 12/27/18 History carvedilol 3.125 mg PO HS 12/27/18 12/27/18 History lactulose 20 g PO BID 12/27/18 12/27/18 History metolazone 2.5 mg PO DAILY 12/27/18 12/27/18 History pantoprazole 40 mg PO DAILY 12/27/18 12/27/18 History polysaccharide iron complex 150 mg PO DAILY 12/27/18 12/27/18 History potassium chloride 10 meq PO BID 12/27/18 12/27/18 History torsemide 50 mg PO PM 12/27/18 12/27/18 History torsemide 100 mg PO DAILY 12/27/18 12/27/18 History tramadol 50 mg PO Q6H PRN 12/27/18 12/27/18 History Past Med/Surg History Medical History CKD (chronic kidney disease), stage IV DNR (do not resuscitate) Comfort measures only status [facility]osp[facility] care [facility] for end stage CHF Hepatic encephalopathy (Chronic) Anemia (Chronic) Anemia of renal disease (Chronic) HLD (hyperlipidemia) (Chronic) Anasarca (Chronic) CHF (congestive heart failure) (Chronic) Pacemaker (Chronic) Hypertension (Chronic) Sick sinus syndrome (Chronic) Contact dermatitis (Resolved) HTN (hypertension) (Chronic) Surgical History History of fusion of cervical spine History of cholecystectomy History of cardiac pacemaker in situ (Chronic) Pacemaker (Chronic) Family History Other Family history non-contributory Social History Preferred Language: Romanian Communication Ability: Impaired Beliefs That Will Affect Care: None Current Living Situation: Personal Care Facility Current Living Situation Comment: [facility] Other Information That Helps Us Care for You: No Feels Safe at Home: Yes Safety Concerns: Feels Safe At This Time Smoking Status: Never smoker Hx Alcohol Use: No Hx Substance Use: No Review of Systems Unobtainable due to cognitive status unreliable due to cognitive status Physical Exam Vital Signs (Past 24 Hours): Last Vital Signs Temp 36.4 C L 12/27/18 06:41 Pulse 61 12/27/18 10:00 Resp 13 12/27/18 10:00 BP 108/52 L 12/27/18 10:00 Pulse Ox 92 12/27/18 10:00 Physical Exam: Gen: Elderly, F, +anasarca, NAD, sitting up in bed, drowsy, but answers questions approp Head: Normocephalic, 2 abraisons to posterior head Eyes: Sclera normal, no conjunctival injection, PERRLA, EOMI ENT: Gross hearing intact, normal pharynx, mucous membranes dry, +blood in mouth, +biting of cheek, +growth to palate Neck: supple, no adenopathy, No JVD, no bruit, Resp: Clear to auscultation b/l, no wheeze, rales, rhonchi. Normal insp/exp effort, no accessory muscle use CV: Regular rate, regular rhythm, 2/6 TRENA noted throughout precordium, no rub, gallop, or ectopy Abd: +BS x 4, soft, nontender, nondistended Musculoskeletal: moves extremities active rom x 4, good feeder catcher strength Extremities: chronic b/l lower ext, venous stasis with +1 pitting edema extending to proximal thigh, b/l upper ext edema L > R, Skin: warm, moist, no rash, moderate turgor, cap refill < 2sec Neuro: Alert and oriented x 2, self and place but not time, speech normal, flat mood/affect, cran nerve 2-12 intact grossly, GCS 13 : deferred Results & Data Laboratory Results Short CBC 12/27/18 12/27/18 Range/Units 09:00 09:00 WBC 6.53 (4.8-10.8) K/uL Hgb 8.5 L (12.0-16.0) g/dL Hct 27.4 L (37-47) % Plt Count 159 (130-400) K/uL Potassium 4.4 (3.5-5.1) mmol/L BUN 74 H (7-18) mg/dl Creatinine 2.60 H (0.6-1.2) mg/dl Globulin 4.9 H (2.5-4.0) gm/dl BMP 12/27/18 09:00 Sodium 139 Potassium 4.4 Chloride 104 Carbon Dioxide 28 BUN 74 H Creatinine 2.60 H Glucose 117 H Calcium 8.8 Liver Function 12/27/18 Range/Units 09:00 Total Bilirubin 0.8 (0.2-1) mg/dl AST 21 (15-37) U/L ALT 19 (12-78) U/L Alkaline Phosphatase 86 (45-117) U/L Albumin 3.2 L (3.4-5.0) gm/dl Diagnostic Findings CXR: IMPRESSION: Cardiomegaly and radiographic evidence of mild congestive fail ure/fluid overload with small bilateral pleural effusions and associated basilar opacities Throacic spine CT: IMPRESSION: 1. No acute thoracic spine fracture or subluxation. 2. Extensive anterior osteophytosis of the thoracic spine. Mild multilevel disc space narrowing. 3. Moderate right and small left pleural effusions with associated airspace opacities which favor atelectasis. Mild pulmonary edema. 3. Moderate cardiomegaly. Lumbar CT: IMPRESSION: 1. There is no evidence of fracture or malalignment involving the lumbar spine. 2. Osteopenia with lumbosacral spondylosis and scoliosis as above Head CT: IMPRESSION: 1. 1.1 cm intraparenchymal focus of acute hemorrhage at the right frontoparietal convexity which suggests a hemorrhagic contusion which is new since head CT of November 15, 2018. No additional sites of intracranial hemorrhage. 2. No calvarial fracture. Cspine CT: IMPRESSION: No evidence of acute fracture or traumatic subluxation. Medications Administered Discontinued Medications Acetaminophen (Tylenol) 650 mg PO NOW STA Stop: 12/27/18 07:37 Last Admin: 12/27/18 07:45 Dose: 650 mg Documented by: [id number] ECG Rate (beats per minute): 64 Findings: + paced rhythm Code Status & VTE Plan Code Status DNR/DNI Comfort measures only VTE Prophylaxis Plan VTE Prophylaxis will be ordered: Yes Reason for no VTE drug order: Contraindicated Supervising Physician Co-Signing Physician Notes Attending addendum: She is a 88 year old female who has a significant PMH CKD stage 4, Right sided CHF, HTN, Anemia of chronic disease, hx of sick sinus syndrome s/p pacer, hepatic encephalopathy, pulmonary HTN who presents to [facility] ED s/p fall at [facility] that was unwitnessed. She has been under hospice care at [facility]. The patient was seen and examined in emergency room She is not in any acute distress and denies any significant symptoms secondary to recent hemorrhagic contusion in the pain as revealed in CAT scan of the head On examination No apparent distress at rest Hemodynamically stable Chest-decreased breath sounds bilaterally with minimal bibasilar crackles Heart-S1-S2 regular, Abdomen-soft, not distended, bowel sounds present Extremities-trace to 1+ edema bilaterally with chronic skin changes scaffolding helper-alert and awake, no facial asymmetry no deviation of the eyeballs, generally weak and moving all the limbs equally No focal motor neuro deficit Admission labs, EKG and imaging studies reviewed Status post fall with CT evidence of right frontoparietal hemorrhagic contusion of 1.1cm in size Has significant lab abnormality including increasing BUN and creatinine Condition remains critical but stable Likely to have repeat 6 CT scan in the morning and transfer back to [facility] with hospice care Discussed with son in detail Agree with assessment and plan as outlined above by Felisha Wilson (1) Cerebral contusion Encounter type: initial encounter Laterality: right Loss of consciousness presence/duration: without LOC Qualified Code(s): S06.310A - Contusion and laceration of right cerebrum without loss of consciousness, initial encounter (2) CHF (congestive heart failure) Heart failure chronicity: unspecified Heart failure type: unspecified Qualified Code(s): I50.9 - Heart failure, unspecified (3) Hypertension Hypertension type: essential hypertension Qualified Code(s): I10 - Essential (primary) hypertension (4) Fall Encounter type: initial encounter Qualified Code(s): W19.XXXA - Unspecified fall, initial encounter
[2018-12-27] MEDS ORDERED: TRAMADOL HCL 50 MG TABLET PO PRN (11:56)
[2018-12-27] MEDS ORDERED: POLYETHYLENE (MIRALAX) 17 GM PACK PO PRN (11:56)
[2018-12-27] MEDS ORDERED: ONDANSETRON INJ 2 MG/ML 2 ML VIAL IV PRN (11:56)
[2018-12-27] MEDS ORDERED: ACETAMINOPHEN 325 MG TAB PO PRN (11:56)
[2018-12-27] MEDS: LACTULOSE SYRUP 20 GM/30 ML UDC PO SCH ×2 (14:20→20:56)
[2018-12-27] MEDS: CARVEDILOL 3.125 MG TAB PO SCH (20:56)
[2018-12-28 08:21] LABS: Basophils # (auto) 0.03 K/uL (0-0.2); Basophils % (auto) 0.5 %; Eosinophils # (auto) 0.46 K/uL (0-0.5); Eosinophils % (auto) 7.8 %; Hematocrit (blood only) 26.9 % (37-47); Hemoglobin 8.3 g/dL (12.0-16.0); Immature Granulocytes # (auto) 0.01 K/uL (0.00-0.02); Immature Granulocytes % (auto) 0.2 %; Lymphocytes # (auto) 0.67 K/uL (1.2-3.4); Lymphocytes % (auto) 11.3 %; Mean Corpuscular Hgb Conc 30.9 g/dL (32-36); Mean Corpuscular Volume 79.4 fL (80-100); Mean Platelet Volume 9.5 fL (7.4-10.4); Monocytes # (auto) 0.82 K/uL (0.11-0.59); Monocytes % (auto) 13.9 %; Neutrophils # (auto) 3.92 K/uL (1.4-6.5); Neutrophils % (auto) 66.3 %; Platelet Count 145 K/uL (130-400); RDW Coefficient of Variation 21.1 % (11.5-14.5); RDW Standard Deviation 59.8 fL (36.4-46.3); Red Blood Count 3.39 M/uL (4.2-5.4); White Blood Count 5.91 K/uL (4.8-10.8)
[2018-12-28] MEDS: LACTULOSE SYRUP 20 GM/30 ML UDC PO SCH ×3 (08:21→21:13)
[2018-12-28] MEDS: PANTOprazole 40 MG TAB PO SCH (08:22)
[2018-12-28] MEDS: IRON POLYSACCHARIDE COMPLEX 150 MG CAPSULE PO SCH (08:22)
[2018-12-28 08:55] LABS: BUN Creatinine Ratio 31.8 (10-20); Calcium 8.7 mg/dl (8.5-10.1); Creatinine Clr Calc Pharmacy 15.1 ml/min; Est GFR (African American) 19.1; Est GFR (Non-African American) 16.5; Potassium 4.1 mmol/L (3.5-5.1)
--- NOTE | 2018-12-28 09:12 | CT Scan Report ---
CT OF THE HEAD WITHOUT CONTRAST CLINICAL HISTORY: 1.1cm intraparenchymal contusion follow up COMPARISON STUDY: Head CT December 27, 2018. CT DOSE: 1139.46 mGy.cm TECHNIQUE: Helical axial images of the head were obtained without IV contrast. Automated exposure con trol was utilized for the study. A dose lowering technique was utilized adhering to the principles o f ALARA. FINDINGS: A 1 cm hemorrhagic contusion within the right frontoparietal convexity is similar to previo us study. No additional sites of intracranial hemorrhage are present. Ventricular system is normal. T he basilar cisterns are patent. White matter hypodensity suggests small vessel disease. There is no c alvarial fracture. Trace fluid within the left mastoid air cells is noted. IMPRESSION: No change in a 1 cm hemorrhagic contusion within the right frontoparietal convexity. Electronically signed by: Fredy Larson M.D. 12/28/2018 9:11 AM
[2018-12-28 09:27] LABS: Anisocytosis Present; Echinocytes 1+; Microcytosis Present; Ovalocytes 1+
[2018-12-28] MEDS ORDERED: FUROSEMIDE 20 MG in SYRINGE 0 ML IV STA (11:59)
--- NOTE | 2018-12-28 13:11 | Hospitalist Progress Note ---
Date of Service December 28, 2018 Assessment & Plan (1) Fall: (2) Cerebral contusion: patient's son has preferrred medical management only repeat CT head: stable size of hemorrhagic area Neuro consulted (3) Acute kidney injury superimposed on CKD: -baseline cr 1.7-2.0 -BUN 74 and cr 2.60 - Metolazone and Torsemide held - crea still at 2.5 -480 ml fluid balance - (+) signs of volume overload today Lasix 20mg IV ordered discussed with patient's son Skyler over the phone informed him patient's kidney function may continue to deteriorate in 24-48 hours he is aware, understanding patient already in the process of transitioning to hospice at the SNF (4) CKD (chronic kidney disease), stage IV: management as noted above (5) Hepatic encephalopathy: mental status about the same NH4 level increased to 162 Start rifaximin 400 mg 3 times daily Continue lactulose Monitor closely (6) Anemia of renal disease: -H/H stable 8.5/27.4 -on iron supplement -recent iron study revealed iron 24, T sat 7, TIBC 327 (7) CHF (congestive heart failure): -no acute exacerbation -Last echo 10/2018 revealed EF 55%, severe right sided systolic dysfunction, mild pulm HTN -weight up to 79.5KG, previously was 69.2kg at discharge and with elevated renal function Positive signs of volume overload today Diuretic management as noted above (8) Hypertension: Monitor closely (9) Pacemaker: (10) Hospice care: -[facility]ly [facility]18 for end stage CHF (11) DNR (do not resuscitate): (12) DVT prophylaxis: -SCDS given cerebral contusion Disposition: Pending Physical Exam Vital Signs (Past 24 Hours): Last Vital Signs Temp 36.7 C 12/28/18 07:14 Pulse 61 12/28/18 07:14 Resp 18 12/28/18 07:14 BP 145/77 H 12/28/18 07:14 Pulse Ox 94 12/28/18 07:14 (1) Fall Encounter type: initial encounter Qualified Code(s): W19.XXXA - Unspecified fall, initial encounter (2) Cerebral contusion Encounter type: initial encounter Laterality: right Loss of consciousness presence/duration: without LOC Qualified Code(s): S06.310A - Contusion and laceration of right cerebrum without loss of consciousness, initial encounter (3) CHF (congestive heart failure) Heart failure chronicity: unspecified Heart failure type: unspecified Qualified Code(s): I50.9 - Heart failure, unspecified (4) Hypertension Hypertension type: essential hypertension Qualified Code(s): I10 - Essential (primary) hypertension
--- NOTE | 2018-12-28 15:18 | Neurology Consultation ---
Date of Consultation December 28, 2018 Assessment & Plan (1) Cerebral contusion: 1. CT head- No change in a 1 cm hemorrhagic contusion within the right frontoparietal convexity. 2. hold aspirin 81 mg for now 3. repeat CT head in 1 week if no change aspirin 81 mg can be restarted 4. comfort measures only DNR/DNI no further recommendations at this time from neurology Supervising Physician Co-Signing Physician Notes I have seen and discussed above patient with Dr Regis Vasques, neurology I have seen much more today, who examined her, reviewed her images and discussed her case with Imelda Scott PA-C I agree totally with the above recommendations. This unfortunate woman has end-stage congestive heart failure is a DO NOT RESUSCITATE DO NOT INTUBATE should be on comfort care she has had a post traumatic hemorrhage involving the right posterior parietal region which is currently asymptomatic. We are going to recommend that her aspirin be held, another CT done of the head in a week and if this is stable or improved and simply reinstitute the aspirin. I do not think neurology needs to follow her up unless her attending physician and [facility] where she currently resides feels this would be necessary Regis Vasques MD History of Present Illness Reason for Consultation: [facility] Requesting Physician: Melquiades Campa MD Attending Physician: Melquiades Campa MD History of Present Illness Jamaal is a 88 year old female PMH CKD stage 4-5, Right sided CHF, HTN, Anemia of chronic disease, sick sinus syndrome s/p pacer, hepatic encephalopathy, pulmonary HTN s/p fall at [facility] that was unwitnessed. She was found patient sitting up against closet, 2 abrasions to back of head and incontinent complaining of back pain. No family is at bedside. Son met with hospice yesterday chronic and end-stage CHF and CKD. She was hospitalized 10/31 to 11/20/18 secondary to acute on chronic right heart failure, renal insufficiency UTI, hepatic encephalopathy felt secondary to passive congestion from CHF in which lactulose was started and her cognitive did improve. She was then discharged to subacute rehab at [facility]. During her last admission patient and son did meet with palliative care in which DNR/DNI was determined and hospice care was promoted. Currently she states she is fine but thinks she still lives in [facility]. denies CP, SOB, abdominal pain, LE weakness, N, V. Allergies Allergy/AdvReac Type Severity Reaction Status Date / Time celecoxib Allergy Intermediate . Unverified 12/27/18 06:56 estrogens, conjugated Allergy Intermediate . Unverified 12/27/18 06:56 levofloxacin Allergy Intermediate . Unverified 12/27/18 06:56 nitrofurantoin Allergy Intermediate . Unverified 12/27/18 06:56 quinidine Allergy Intermediate HEART Unverified 12/27/18 06:56 ALMOST STOPPED tetanus toxoid, adsorbed Allergy Intermediate HIVES Unverified 12/27/18 06:56 sulfisoxazole AdvReac Intermediate HEADACHE Unverified 12/27/18 06:56 Home Medications Home Medications Medication Instructions Recorded Confirmed Type aspirin [Aspir-81] 81 mg PO DAILY 12/27/18 12/27/18 History carvedilol 3.125 mg PO HS 12/27/18 12/27/18 History lactulose 20 g PO BID 12/27/18 12/27/18 History metolazone 2.5 mg PO DAILY 12/27/18 12/27/18 History pantoprazole 40 mg PO DAILY 12/27/18 12/27/18 History polysaccharide iron complex 150 mg PO DAILY 12/27/18 12/27/18 History potassium chloride 10 meq PO BID 12/27/18 12/27/18 History torsemide 50 mg PO PM 12/27/18 12/27/18 History torsemide 100 mg PO DAILY 12/27/18 12/27/18 History tramadol 50 mg PO Q6H PRN 12/27/18 12/27/18 History Patient History Medical History CKD (chronic kidney disease), stage IV DNR (do not resuscitate) Comfort measures only status [facility] care [facility] for end stage CHF Hepatic encephalopathy (Chronic) Anemia (Chronic) Anemia of renal disease (Chronic) HLD (hyperlipidemia) (Chronic) Anasarca (Chronic) CHF (congestive heart failure) (Chronic) Pacemaker (Chronic) Hypertension (Chronic) Sick sinus syndrome (Chronic) Contact dermatitis (Resolved) HTN (hypertension) (Chronic) Surgical History History of fusion of cervical spine History of cholecystectomy History of cardiac pacemaker in situ (Chronic) Pacemaker (Chronic) Family History Other Family history non-contributory Social History Preferred Language: Swazi Communication Ability: Impaired Beliefs That Will Affect Care: None Current Living Situation: Personal Care Facility Current Living Situation Comment: [facility] Other Information That Helps Us Care for You: No Feels Safe at Home: Yes Safety Concerns: Feels Safe At This Time Smoking Status: Never smoker Hx Alcohol Use: No Hx Substance Use: No Physical Exam Vital Signs (Past 24 Hours): Last Vital Signs Temp 36.7 C 12/28/18 07:14 Pulse 61 12/28/18 07:14 Resp 18 12/28/18 07:14 BP 145/77 H 12/28/18 07:14 Pulse Ox 94 12/28/18 07:14 Physical Exam: Constitutional: appearance nourished, ill appearing Ears, Nose, Mouth and Throat: mucous membranes moist, no injection and skin normal, eyes normal Cardiovascular: irregular Respiratory: course breath sounds Musculoskeletal: 2++ pitting edema bilateral LE, venous status with toughness of skin Skin: LUE edema Eyes: extraocular muscles intact (EOMI) and pupils equal, round and reactive to light (PERRL) NEUROLOGIC EXAMINATION: Mental status: Alert and interactive Oriented states hospital Oriented to person Speech fluent with no evidence of aphasia Cranial Nerves smile eye brow raise symmetric Reflexes: Deep tendon reflexes were symmetrical brisk, down going toes Sensory: decreased sensation to light and cool touch Coordination: finger to nose no bi pass Gait/Stance: Posture lying in bed Motor: Negative for pronator drift of out stretched arms with eyes closed. Strength: biceps tricepts hand police captain 4+/5, hip flex 2/5 bilaterally Results & Data Laboratory Results Abnormal lab results 12/28/18 12/28/18 12/28/18 Range/Units 07:43 07:43 12:05 RBC 3.39 L (4.2-5.4) M/uL Hgb 8.3 L (12.0-16.0) g/dL Hct 26.9 L (37-47) % MCV 79.4 L (80-100) fL MCH 24.5 L (25-34) pg MCHC 30.9 L (32-36) g/dL RDW Std Deviation 59.8 H (36.4-46.3) fL RDW Coeff of Amos 21.1 H (11.5-14.5) % Lymph # (Auto) 0.67 L (1.2-3.4) K/uL [place]es # (Auto) 0.82 H (0.11-0.59) K/uL BUN 80 H (7-18) mg/dl Creatinine 2.50 H (0.6-1.2) mg/dl BUN/Creatinine Ratio 31.8 H (10-20) Glucose 108 H (70-99) mg/dl Ammonia 125.3 H (11-32) umol/L Diagnostic Findings CT c spine- No evidence of acute fracture or traumatic subluxation. CT head-1.1 No change in a 1 cm hemorrhagic contusion within the right frontoparietal convexity. which suggests a hemorrhagic contusion which is new since head CT of November 15, 2018. No additional sites of intracranial hemorr inna. No calvarial fracture. CT L spine-There is no evidence of fracture or malalignment involving the lumbar spine. Osteopenia with lumbosacral spondylosis and scoliosis as above. CT T spine-No acute thoracic spine fracture or subluxation. Extensive anterior osteophytosis of the thoracic spine. Mild multilevel disc space narrowing. Moderate right and small left pleural effusions with associated airspace opacities which favor atelectasis. Mild pulmonary edema. . Moderate cardiomegaly. CXR-. Cardiomegaly and cardiac pacemaker. There is no radiographic evidence of congestive failure. There are small pleural effusions with bibasilar consolidation. This likely represents atelectasis. CT head-repeated- 12/28-No change in a 1 cm hemorrhagic contusion within the right frontoparietal convexity. (1) Cerebral contusion Encounter type: initial encounter Laterality: right Loss of consciousness presence/duration: without LOC Qualified Code(s): S06.310A - Contusion and laceration of right cerebrum without loss of consciousness, initial encounter
[2018-12-28] MEDS: RIFAXIMIN 200 MG TABLET PO SCH ×2 (15:54→21:13)
--- NOTE | 2018-12-28 19:30 | Nephrology Consultation ---
Date of Consultation December 28, 2018 Assessment & Plan (1) CKD (chronic kidney disease), stage IV: really difficult to determine her baseline creatinine over past 2 months >> while she did leave hospital in early Nov w/ creatinine 1.7 (after holding diuretics which were resumed after d/c) , she was in this range only for 2 days; otherwise her creatinine that admission ran in 2's and even 3's; I consider 2.6 acceptable creatinine in this frail pt w/ end stage heart failure and severe/symptomatic volume overload. -would probably not call her HANNAH at this point -not a dialysis canddiate d/t comorbidities; pt already on comfort measures -defer to primary service for best way to pursue comfort here but I would resume diuretics -- IV here so we are not dependent on her to be able to take pills < altered MS currently -for now daily bmp if we are trying to mange diuretic dosing but if she is truly comfort measures, consider suspending labs Present on Admission?: Yes (2) Anasarca: -one time torsemide dose for AM though not clear she will waken enough to take pills -will give lasix 80 mg IV in am x 1, give additional dose if dyapnea develops -need to clarify goals of care here >> whether to use diuretics for comfort only/ to improve immediate respiratory status or to use standing diuretics Present on Admission?: Yes History of Present Illness Reason for Consultation: HANNAH on CKD 4 Requesting Physician: Dr Campa Attending Physician: Melquiades Campa MD History of Present Illness 88 y/o F w/ baseline CKD4 whom I'm asked to see for worsening renal dysfunction. I met her during admission here about 6 wks back from 10/31-11/20. She was d/c to [facility]. she there yesterday had unwitnessed fall w/ 1.1 cm R frontoparietal convexity hemorrhage. Her baseline creatinine is mid 2's w/ some lability at least at early Nov d/c. Pt recently transitioned to hospice [employer] [facility] d/t advanced HF/liver failure/ renal failure and so no ag gressive/intensification of care planned. PMH includes CKD 4, congestive hepatopathy w/ R HF; pulmonary HTN, sick sinus syndrome, chronic/multifactorial volume overload, baseline cognitive impairment c/b frequent hepatic encephalopathy, chronic ambulatory dysfunction. SHe was slowly diuresed at last admission and left at 69 .2 kg; comes in this admission at 79 kg. neurology saw pt > recommends holding asa, repeat head CT one week and consider resuming asa at that time pending ct findings. She was d/c on torsemide 80 mg daily; comes back in on torsemide 100 /50. her presenting creatinine was 2.6 and her diuretics were held. When I went to see pt, she was arouseable but unable to provide hx/ros. Allergies Allergy/AdvReac Type Severity Reaction Status Date / Time celecoxib Allergy Intermediate . Unverified 12/27/18 06:56 estrogens, conjugated Allergy Intermediate . Unverified 12/27/18 06:56 levofloxacin Allergy Intermediate . Unverified 12/27/18 06:56 nitrofurantoin Allergy Intermediate . Unverified 12/27/18 06:56 quinidine Allergy Intermediate HEART Unverified 12/27/18 06:56 ALMOST STOPPED tetanus toxoid, adsorbed Allergy Intermediate HIVES Unverified 12/27/18 06:56 sulfisoxazole AdvReac Intermediate HEADACHE Unverified 12/27/18 06:56 Home Medications Home Medications Medication Instructions Recorded Confirmed Type aspirin [Aspir-81] 81 mg PO DAILY 12/27/18 12/27/18 History carvedilol 3.125 mg PO HS 12/27/18 12/27/18 History lactulose 20 g PO BID 12/27/18 12/27/18 History metolazone 2.5 mg PO DAILY 12/27/18 12/27/18 History pantoprazole 40 mg PO DAILY 12/27/18 12/27/18 History polysaccharide iron complex 150 mg PO DAILY 12/27/18 12/27/18 History potassium chloride 10 meq PO BID 12/27/18 12/27/18 History torsemide 50 mg PO PM 12/27/18 12/27/18 History torsemide 100 mg PO DAILY 12/27/18 12/27/18 History tramadol 50 mg PO Q6H PRN 12/27/18 12/27/18 History Patient History Medical History CKD (chronic kidney disease), stage IV DNR (do not resuscitate) Comfort measures only status [facility] care [facility] for end stage CHF Hepatic encephalopathy (Chronic) Anemia (Chronic) Anemia of renal disease (Chronic) HLD (hyperlipidemia) (Chronic) Anasarca (Chronic) CHF (congestive heart failure) (Chronic) Pacemaker (Chronic) Hypertension (Chronic) Sick sinus syndrome (Chronic) Contact dermatitis (Resolved) HTN (hypertension) (Chronic) Surgical History History of fusion of cervical spine History of cholecystectomy History of cardiac pacemaker in situ (Chronic) Pacemaker (Chronic) Family History Other Family history non-contributory Social History Preferred Language: Syriac Communication Ability: Impaired Beliefs That Will Affect Care: None Current Living Situation: Personal Care Facility Current Living Situation Comment: [facility] Other Information That Helps Us Care for You: No Feels Safe at Home: Yes Safety Concerns: Feels Safe At This Time Smoking Status: Never smoker Hx Alcohol Use: No Hx Substance Use: No Review of Systems unable to obtain d/t clinical condition Physical Exam Vital Signs (Past 24 Hours): Last Vital Signs Temp 36.6 C 12/28/18 16:03 Pulse 59 L 12/28/18 16:03 Resp 18 12/28/18 16:03 BP 170/69 H 12/28/18 16:03 Pulse Ox 97 12/28/18 16:03 Constitutional: well developed and + frail appearing; not in distress difficult to arouse; opens eyes briefly w/ minimal speech Eyes: EOM intact bilaterally ENMT: Ears: no external ear abnormality Nose: no external nose abnormality Mouth: + dry oral mucous membranes Neck: no nuchal rigidity Respiratory: + labored breathing (slight), + prolonged expiratory phase and + paradoxical thoraco-abdominal movement Auscultation: + diminished lung sounds and + wheezes (occasional exp) Cardiovascular: Rate/Rhythm: regular rate and regular rhythm Heart Sounds: + murmur Extremities: + edema (2+ BLE) Gastrointestinal (Abdomen): Inspection/Auscultation: normal bowel sounds Percussion/Palpation: abdomen soft; abdomen nontender Musculoskeletal: Extremities: strength 5/5 throughout Skin: no rashes, warm and dry Neurologic: gaona, no tremor; very fatigued Psychiatric: unable to evaluate Results & Data Laboratory Results Abnormal lab results 12/28/18 12/28/18 12/28/18 Range/Units 07:43 07:43 12:05 RBC 3.39 L (4.2-5.4) M/uL Hgb 8.3 L (12.0-16.0) g/dL Hct 26.9 L (37-47) % MCV 79.4 L (80-100) fL MCH 24.5 L (25-34) pg MCHC 30.9 L (32-36) g/dL RDW Std Deviation 59.8 H (36.4-46.3) fL RDW Coeff of Amos 21.1 H (11.5-14.5) % Lymph # (Auto) 0.67 L (1.2-3.4) K/uL Mcduffie # (Auto) 0.82 H (0.11-0.59) K/uL BUN 80 H (7-18) mg/dl Creatinine 2.50 H (0.6-1.2) mg/dl BUN/Creatinine Ratio 31.8 H (10-20) Glucose 108 H (70-99) mg/dl Ammonia 125.3 H (11-32) umol/L
[2018-12-28] MEDS: CARVEDILOL 3.125 MG TAB PO SCH (21:13)
[2018-12-29 07:43] VITALS: TEMP 97.9; O2SAT 91
[2018-12-29] MEDS ORDERED: FUROSEMIDE 80 MG in SYRINGE 0 ML IV ONE (08:00)
[2018-12-29] MEDS: PANTOprazole 40 MG TAB PO SCH (09:36)
[2018-12-29] MEDS: RIFAXIMIN 200 MG TABLET PO SCH (09:36)
[2018-12-29] MEDS: IRON POLYSACCHARIDE COMPLEX 150 MG CAPSULE PO SCH (09:36)
[2018-12-29] MEDS: LACTULOSE SYRUP 20 GM/30 ML UDC PO SCH (09:36)
[2018-12-29 10:15] LABS: BUN Creatinine Ratio 34.9 (10-20); Calcium 8.6 mg/dl (8.5-10.1); Creatinine Clr Calc Pharmacy 17.7 ml/min; Est GFR (African American) 22.8; Est GFR (Non-African American) 19.7; Potassium 4.1 mmol/L (3.5-5.1)
--- NOTE | 2018-12-29 10:24 | Palliative Care Consultation ---
Date of Consultation December 29, 2018 Assessment & Plan (1) Palliative care encounter: This is an 88 year old female who is known to the Palliative Care Service from previous admission in November with a long standing history of Right-sided CHF, CRF, and mental status changes who presented to the [facility] s/p unwitnessed fall at [facility]. She has had numerous inpatient hospitalizations over the past two months, mostly at [facility] in [place], [place] for A/C CHF exacerbations.Upon evaluation here in the ED a 1.1 cm Right sided fronto- parietal acute hemorrhage was discovered. Upon discussion with the patient and son yesterday, conservative measures were to be taken with a goal to focus on comfort and return to [facility]. Palliative Care was consulted for continuity in care and to confirm goals of care. -Patient is a resident of [facility] -Patient is AAO x 4 and was able to recall her fall, but the details were 'fuzzy'. She states she does not have any pain at this time. -In discussion with patient, she would like to return to [facility]. -Per son, hospice services are currently being instituted at [facility] ([place] The goal is to have her remain at [facility] once she returns unless pain or symptoms are unable to managed there. -Per discussion with nursing staff, plans are to return to [facility] this afternoon and I would support her stability for the transfer. -Palliative Performance Scale: 30% (2) Fall: -Patient sustained unwitnessed fall at [facility] -1.1 cm Right fronto-parietal acute hemorrhage noted -Per review of notes, repeat CT to be done today prior to return to [facility]. -Conservative measures at this time Encounter type: initial encounter Qualified Code(s): W19.XXXA - Unspecified fall, initial encounter (3) CKD (chronic kidney disease), stage IV: History of Present Illness Reason for Consultation: GOALS OF CARE Requesting Physician: Dr. Campa Attending Physician: Melquiades Campa MD History of Present Illness This is an 88 year old female who is known to the Palliative Care Service from previous admission in November with a long standing history of Right-sided CHF, CRF, and mental status changes who presented to the [facility] s/p unwitnessed fall at [facility]. She has had numerous inpatient hospitalizations over the past two months, mostly at [facility] in [place], [place] for A/C CHF exacerbations.Upon evaluation here in the ED a 1.1 cm Right sided fronto-parietal acute hemorrhage was discovered. Upon discussion with the patient and son yesterday, conservative measures were to be taken with a goal to focus on comfort and return to [facility]. Palliative Care was consulted for continuity in care and to confirm goals of care. Please see Assessment and Plan for further details. Thank you kindly for involving us with this kameron patient and family. Allergies Allergy/AdvReac Type Severity Reaction Status Date / Time celecoxib Allergy Intermediate . Unverified 12/27/18 06:56 estrogens, conjugated Allergy Intermediate . Unverified 12/27/18 06:56 levofloxacin Allergy Intermediate . Unverified 12/27/18 06:56 nitrofurantoin Allergy Intermediate . Unverified 12/27/18 06:56 quinidine Allergy Intermediate HEART Unverified 12/27/18 06:56 ALMOST STOPPED tetanus toxoid, adsorbed Allergy Intermediate HIVES Unverified 12/27/18 06:56 sulfisoxazole AdvReac Intermediate HEADACHE Unverified 12/27/18 06:56 Home Medications Home Medications Medication Instructions Recorded Confirmed Type aspirin [Aspir-81] 81 mg PO DAILY 12/27/18 12/27/18 History carvedilol 3.125 mg PO HS 12/27/18 12/27/18 History lactulose 20 g PO BID 12/27/18 12/27/18 History metolazone 2.5 mg PO DAILY 12/27/18 12/27/18 History pantoprazole 40 mg PO DAILY 12/27/18 12/27/18 History polysaccharide iron complex 150 mg PO DAILY 12/27/18 12/27/18 History potassium chloride 10 meq PO BID 12/27/18 12/27/18 History torsemide 50 mg PO PM 12/27/18 12/27/18 History torsemide 100 mg PO DAILY 12/27/18 12/27/18 History tramadol 50 mg PO Q6H PRN 12/27/18 12/27/18 History Patient History Medical History CKD (chronic kidney disease), stage IV DNR (do not resuscitate) Comfort measures only status [facility] care [facility] for end stage CHF Hepatic encephalopathy (Chronic) Anemia (Chronic) Anemia of renal disease (Chronic) HLD (hyperlipidemia) (Chronic) Anasarca (Chronic) CHF (congestive heart failure) (Chronic) Pacemaker (Chronic) Hypertension (Chronic) Sick sinus syndrome (Chronic) Contact dermatitis (Resolved) HTN (hypertension) (Chronic) Surgical History History of fusion of cervical spine History of cholecystectomy History of cardiac pacemaker in situ (Chronic) Pacemaker (Chronic) Family History Other Family history non-contributory Social History Preferred Language: Welsh Communication Ability: Impaired Beliefs That Will Affect Care: None Current Living Situation: Personal Care Facility Current Living Situation Comment: [facility] Other Information That Helps Us Care for You: No Feels Safe at Home: Yes Safety Concerns: Feels Safe At This Time Smoking Status: Never smoker Hx Alcohol Use: No Hx Substance Use: No Review of Systems General: Pt denies pain HEENT: Pt denies CARTER, dizziness, visual changes CV: Pt denies chest pain, palpitations Resp: Pt denies breathing distress/SOB GI: Pt wishes she could eat more, but denies pain with swallowing or N/V/D : Pt denies urinary changes Skin: Pt denies skin changes Physical Exam Vital Signs (Past 24 Hours): Last Vital Signs Temp 36.6 C 12/29/18 07:42 Pulse 68 12/29/18 08:00 Resp 20 12/29/18 07:42 BP 157/61 H 12/29/18 07:42 Pulse Ox 91 12/29/18 07:42 Physical Exam: Pt sitting upright in her bed upon my entering the room Constitutional: + ill appearing, + frail appearing and + edematous Eyes: PERRL, conjunctivae normal, anicteric sclerae ENMT: external ear and nose normal, oropharynx normal Neck: trachea midline, no thyromegaly Respiratory: normal respiratory effort Auscultation: + diminished lung sounds Cardiovascular: Rate/Rhythm: regular rate and regular rhythm Heart Sounds: normal S1, normal S2 and + murmur (Grade III/ LSB) Vessels: no JVD Extremities: normal capillary refill and + edema (B/L LE +2) Gastrointestinal (Abdomen): normal bowel sounds, soft, nontender, no hepatosplenomegaly Skin: no rashes, warm and dry Psychiatric: Affect: euthymic affect Insight: good insight Judgement: good judgement Time Spent Midlevel Total time spent 50 minutes with > 50% of that time spent reviewing the chart, assessing the patient, discussing POC with staff
[2018-12-29 12:25] VITALS: BP 145/68; PULSE 60
--- NOTE | 2018-12-29 12:37 | Hospitalist Progress Note ---
Date of Service December 29, 2018 Assessment & Plan (1) Fall: (2) Cerebral contusion: patient's son has preferrred medical management only repeat CT head: stable size of hemorrhagic area Neuro consulted Dr. Vasques. Recommend to repeat CT head in 1 week, and if the hemorrhagic area is stable, may resume aspirin 81 mg p.o. daily. Fall precautions, monitor patient more frequently especially at night (3) Acute kidney injury superimposed on CKD: -baseline cr 1.7-2.0 -BUN 74 and cr 2.60 - Metolazone and Torsemide held - crea still at 2.5 -480 ml fluid balance -Lasix IV ordered, nephrology consulted Patient diuresed, respiratory status stable Still has lower leg edema, Discussed with nephrology, recommend to resume oral diuretics and titrate accordingly (4) CKD (chronic kidney disease), stage IV: management as noted above (5) Hepatic encephalopathy: mental status about the same NH4 level increased to 162 Started rifaximin 400 mg 3 times daily Plus increased to 20 mg 3 times daily Ammonia level improved to 60 Continue lactulose Monitor closely (6) Anemia of renal disease: -H/H stable 8.5/27.4 -on iron supplement -recent iron study revealed iron 24, T sat 7, TIBC 327 (7) CHF (congestive heart failure): -no acute exacerbation -Last echo 10/2018 revealed EF 55%, severe right sided systolic dysfunction, mild pulm HTN -weight up to 79.5KG, previously was 69.2kg at discharge and with elevated renal function Diuretic management as noted above (8) Hypertension: Continue carvedilol (9) Pacemaker: (10) Hospice care: -[facility]ly placed [facility] for end stage CHF (11) DNR (do not resuscitate): (12) DVT prophylaxis: Disposition: Return to [facility] today continue hospice care services, primary care physician care due to peripheral edge Subjective Follow-up for hemorrhagic contusion, acute renal failure Initially seen sleeping but easily awakened, comfortable, not in distress, on 2 L of nasal cannula Later on patient was awake alert, talking to the nurses, requesting for drink Denies shortness of breath, chest pain has some mild back pain Urine output about 1.5 L yesterday Other symptoms or signs noted Physical Exam Vital Signs (Past 24 Hours): Last Vital Signs Temp 36.6 C 12/29/18 12:22 Pulse 60 12/29/18 12:22 Resp 20 12/29/18 12:22 BP 145/68 H 12/29/18 12:22 Pulse Ox 91 12/29/18 12:22 Physical Exam: General- oriented x 2, not in distress, speaks in sentences with no effort or accessory muscle use Eyes- anicteric Neck- no JVD Lungs- clear breath sounds bilaterally Heart- normal rate, regular rhythm; no murmurs Abdomen- normal bowel sounds, nondistended, soft, nontender Extremities- (+) grade 1-2 lower leg edema, (+) moderate edema of left forearm, no calf tenderness Neuro- alert, oriented x2; somewhat confused, no gross focal neurologic deficits Skin- warm & dry Results & Data Laboratory Results Laboratory Results - last 24 hr 12/28/18 12/29/18 12/29/18 12:05 09:25 09:32 Sodium 137 Potassium 4.1 Chloride 103 Carbon Dioxide 28 Anion Gap 6.0 BUN 75 H Creatinine 2.16 H D Est Cr Clr Drug Dosing 17.7 Est GFR ( Amer) 22.8 Est GFR (Non-Af Amer) 19.7 BUN/Creatinine Ratio 34.9 H Glucose 119 H Calcium 8.6 Ammonia 125.3 H 60.1 H (1) Cerebral contusion Encounter type: initial encounter Laterality: right Loss of consciousness presence/duration: without LOC Qualified Code(s): S06.310A - Contusion and laceration of right cerebrum without loss of consciousness, initial encounter (2) CHF (congestive heart failure) Heart failure chronicity: unspecified Heart failure type: unspecified Qualified Code(s): I50.9 - Heart failure, unspecified (3) Hypertension Hypertension type: essential hypertension Qualified Code(s): I10 - Essential (primary) hypertension (4) Fall Encounter type: initial encounter Qualified Code(s): W19.XXXA - Unspecified fall, initial encounter
--- NOTE | 2018-12-29 13:22 | Discharge Summary ---
Date of Service December 29, 2018 Admission HPI Per Admitting Provider This is a 88 year old female who has a significant PMH CKD stage 4-5, Right sided CHF, HTN, Anemia of chronic disease, hx of sick sinus syndrome s/p pacer, hepatic encephalopathy, pulmonary HTN who presents to [facility] ED s/p fall at [facility] that was unwitnessed. longterm staff found patient sitting up against closet, 2 abrasions to back of head and incontinent complaining of back pain; therefore, referred to ED for further evaluation. ROS unreliable given patient cognitive status. No family is at bedside; however, son Skyler was contacted. According to patient's son he met with hospice yesterday given patient's chronic and end-stage CHF and CKD. Subsequently patient recently hospitalized 10/31 to 11/20/18. Hospitalized secondary to acute on chronic right heart failure, renal insufficiency UTI, hepatic encephalopathy felt secondary to passive congestion from CHF in which lactulose was started. Cognitive status improved with lactulose. She was then discharged to subacute rehab at [facility]. During her last admission patient and son did meet with palliative care in which DNR/DNI was determined and hospice care was promoted. Patient currently denies any pain, but is requesting ice chips. Denies any chest pain, sob, cough, f/c/s but again unreliable. Patient does have chronic lower ext and upper ext swelling which is unchanged per nursing facility. She has had weight gain since last admission now 79.5 kg, was 69kg at last d/c. Admission Exam Per Admitting Provider Vital Signs (Past 24 Hours): Last Vital Signs Temp 36.4 C L 12/27/18 06:41 Pulse 61 12/27/18 10:00 Resp 13 12/27/18 10:00 BP 108/52 L 12/27/18 10:00 Pulse Ox 92 12/27/18 10:00 Physical Exam: Gen: Elderly, F, +anasarca, NAD, sitting up in bed, drowsy, but answers questions approp Head: Normocephalic, 2 abraisons to posterior head Eyes: Sclera normal, no conjunctival injection, PERRLA, EOMI ENT: Gross hearing intact, normal pharynx, mucous membranes dry, +blood in mout h, +biting of cheek, +growth to palate Neck: supple, no adenopathy, No JVD, no bruit, Resp: Clear to auscultation b/l, no wheeze, rales, rhonchi. 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 Extremities: chronic b/l lower ext, venous stasis with +1 pitting edema extending to proximal thigh, b/l upper ext edema L > R, Skin: warm, moist, no rash, moderate turgor, cap refill < 2sec Neuro: Alert and oriented x 2, self and place but not time, speech normal, flat mood/affect, cran nerve 2-12 intact grossly, GCS 13 : deferred Principal Diagnosis Hemorrhagic contusion, right frontoparietal convexity Discharge Exam Vital Signs (Past 24 Hours): Last Vital Signs Temp 36.6 C 12/29/18 12:22 Pulse 60 12/29/18 12:22 Resp 20 12/29/18 12:22 BP 145/68 H 12/29/18 12:22 Pulse Ox 91 12/29/18 12:22 Physical Exam: General- oriented x 2, not in distress, speaks in sentences with no effort or accessory muscle use Eyes- anicteric Neck- no JVD Lungs- clear breath sounds bilaterally Heart- normal rate, regular rhythm; no murmurs Abdomen- normal bowel sounds, nondistended, soft, nontender Extremities- (+) grade 1-2 lower leg edema, (+) moderate edema of left forearm, no calf tenderness Neuro- alert, oriented x2; somewhat confused, no gross focal neurologic deficits Skin- warm & dry Discharge Data Allergies Allergy/AdvReac Type Severity Reaction Status Date / Time celecoxib Allergy Intermediate . Unverified 12/27/18 06:56 estrogens, conjugated Allergy Intermediate . Unverified 12/27/18 06:56 levofloxacin Allergy Intermediate . Unverified 12/27/18 06:56 nitrofurantoin Allergy Intermediate . Unverified 12/27/18 06:56 quinidine Allergy Intermediate HEART Unverified 12/27/18 06:56 ALMOST STOPPED tetanus toxoid, adsorbed Allergy Intermediate HIVES Unverified 12/27/18 06:56 sulfisoxazole AdvReac Intermediate HEADACHE Unverified 12/27/18 06:56 Consultations 12/27/18 08:55 ED Decision to Admit Stat 12/27/18 11:56 Consult Case Management - Discharge Planning Routine 12/28/18 11:59 Consult Nephrology Routine Consult Neurology Routine 12/28/18 12:13 Consult Palliative Care Routine Ordered Studies 12/27/18 06:46 CT cervical spine wo con Stat No evidence of acute fracture or traumatic subluxation. CT head/brain wo con Stat FINDINGS: Note is made of a 1.1 cm hyperdense intraparenchymal focus at the right frontoparietal convexity which is new since head CT of November 15, 2018. This represents hemorrhage. No additional sites of hemorrhage are present. Ventricular system is normal. The basilar cisterns are patent. There are no extra axial collections. No chondral fracture is present. Trace fluid within the left mastoid air cells is noted. IMPRESSION: 1. 1.1 cm intraparenchymal focus of acute hemorrhage at the right frontoparietal convexity which suggests a hemorrhagic contusion which is new since head CT of November 15, 2018. No additional sites of intracranial hemorrhage. 2. No calvarial fracture. CT lumbar spine wo con Stat 1. There is no evidence of fracture or malalignment involving the lumbar spine. 2. Osteopenia with lumbosacral spondylosis and scoliosis as above. CT thoracic spine wo con Stat IMPRESSION: 1. No acute thoracic spine fracture or subluxation. 2. Extensive anterior osteophytosis of the thoracic spine. Mild multilevel disc space narrowing. 3. Moderate right and small left pleural effusions with associated airspace opacities which favor atelectasis. Mild pulmonary edema. 4. Moderate cardiomegaly. 12/28/18 09:00 CT head/brain wo con Routine FINDINGS: A 1 cm hemorrhagic contusion within the right frontoparietal convexity is similar to previous study. No additional sites of intracranial hemorrhage are present. Ventricular system is normal. The basilar cisterns are patent. White matter hypodensity suggests small vessel disease. There is no calvarial fracture. Trace fluid within the left mastoid air cells is noted. IMPRESSION: No change in a 1 cm hemorrhagic contusion within the right frontoparietal convexity. Hospital Course (1) Fall: (2) Cerebral contusion: This is a 88 year old female who has a significant PMH CKD stage 4, Right sided CHF, HTN, Anemia of chronic disease, hx of sick sinus syndrome s/p pacer, hepatic encephalopathy, pulmonary HTN who presents to [facility] ED s/p fall at [facility] that was unwitnessed. In ED Trauma work up revealed 1.1 cm intraparenchymal focus of acute hemorrhage at the right frontoparietal convexity which suggests a hemorrhagic contusion. Findings discussed with SonSkyler who wishes patient be admitted overnight for observation and repeat CT in a.m. Pt recently transitioned to hospice service and son would not like patient transferred from facility and is requesting comfort care only repeat CT head: No change in a 1 cm hemorrhagic contusion within the right frontoparietal convexity. Neuro consulted- Dr. Vasques. Recommend to repeat CT head in 1 week, and if the hemorrhagic area is stable, may resume aspirin 81 mg p.o. daily. Fall precautions, monitor patient more frequently especially at night (3) Acute kidney injury superimposed on CKD: -baseline cr 1.7-2.0 - on admission, BUN 74 and cr 2.60 - Metolazone and Torsemide held - crea still at 2.5 -480 ml fluid balance -Lasix IV ordered, nephrology consulted Patient diuresed, respiratory status stable Still has lower leg edema, Discussed with nephrology, recommend to resume oral diuretics and titrate accordingly (4) CKD (chronic kidney disease), stage IV: management as noted above (5) Hepatic encephalopathy: NH4 level increased to 162 Lactulose increased to 20 mg 3 times daily Started rifaximin 400 mg 3 times daily Ammonia level improved to 60 Continue lactulose Monitor closely (6) Anemia of renal disease: -H/H stable 8.5/27.4 -on iron supplement -recent iron study revealed iron 24, T sat 7, TIBC 327 (7) CHF (congestive heart failure): -Last echo 10/2018 revealed EF 55%, severe right sided systolic dysfunction, mild pulm HTN -weight up to 79.5KG, previously was 69.2kg at discharge and with elevated crea Diuretic management as noted above (8) Hypertension: Continue carvedilol (9) Pacemaker: (10) Hospice care: -[facility]ly placed [facility] for end stage CHF (11) DNR (do not resuscitate): (12) DVT prophylaxis: Disposition: Return to [facility] today continue hospice care services, primary care physician care due to peripheral edge Total Time Total Time Spent Total Time Spent (In Minutes): 40 minutes Discharge Plan Discharge Items Patient Disposition: Hospice - Medical Facility Reason For Visit: INTRAPARENCHYMAL HEMORRHAGIC CONTUSION Discharge Diagnosis: Hemorrhagic contusion, right frontoparietal convexity Discharge Goals: Diagnostic testing and Therapeutic intervention Activity: As commented below Activity Comment: Fall precautions, monitor more frequently especially at night Non-emergency contact: Primary Care Provider Call non-emergency contact if: you have any medication questions, your symptoms worsen and you have a fever Follow-up/Referrals: Yazmin Stock DO [Primary Care Provider] - Diet: Regular Diet Comment: Aspiration precautions Addtl Provider Instructions: Fall precautions. Please monitor more frequently especially at night. Monitor respiratory and mental status. Continue hospice care services at [facility]. Please refer to accompanying hospital discharge summary for further details. Prescriptions: New Xifaxan 200 mg Tablet 400 mg PO TID 30 Days Qty: 180 RF: 0 lactulose 20 gram/30 mL Solution 30 ml PO TID 30 Days Qty: 2700 RF: 0 Continued torsemide 20 mg Tablet 100 mg PO DAILY RF: 0 carvedilol 3.125 mg Tablet 3.125 mg PO HS RF: 0 metolazone 2.5 mg Tablet 2.5 mg PO DAILY RF: 0 torsemide 20 mg Tablet 50 mg PO PM RF: 0 polysaccharide iron complex 150 mg iron Capsule 150 mg PO DAILY RF: 0 tramadol 50 mg Tablet 50 mg PO Q6H PRN (Reason: Pain) RF: 0 pantoprazole 40 mg Tablet,Delayed Release (Dr/Ec) 40 mg PO DAILY RF: 0 Discontinued aspirin [Aspir-81] 81 mg Tablet,Delayed Release (Dr/Ec) 81 mg PO DAILY RF: 0 potassium chloride 10 mEq Tablet Extended Release 10 meq PO BID RF: 0 lactulose 20 gram/30 mL Solution 20 g PO BID RF: 0 Stand-Alone Forms: [facility] Discharge Orders: Discharge Order (Routine); Ordered 12/29/18 Ordered By: Melquiades Campa Admission Data Admit Date/Time: 12/27/18 09:32 Attending Provider: Melquiades Campa Admit Provider: Alhaji Wilson Primary Care Provider: aYzmin Stock Other Providers: Alhaji Wilson ; Tariq Chavarria ; Rosa Garcia ; Solo Clements ; Lashell Peters I ; Sarah Bhandari ; Magalis Andino ; Taylor Finn ; Imelda Scott ; Regis Vasques ; Imelda Muro ; Jared Roberson ; Jay Blandon ; Angeline Hirsch ; Vickie Andrade Service: Telemetry Other Interventions: Discharge Summary Assessment (RN) Last Done: 12/29/18 12:22
--- NOTE | 2018-12-29 18:30 | Nephrology Progress Note ---
Date of Service December 29, 2018 Assessment & Plan (1) CKD (chronic kidney disease), stage IV: really difficult to determine her baseline creatinine over past 2 months >> while she did leave hospital in early Nov w/ creatinine 1.7 (after holding diuretics which were resumed after d/c) , she was in this range only for 2 days; otherwise her creatinine that admission ran in 2's and even 3's; I consider 2.6 acceptable creatinine in this frail pt w/ end stage heart failure and severe/symptomatic volume overload. creat this am 2.2 after holding diuretics -would probably not call her [facility] at this point -not a dialysis canddiate d/t comorbidities; pt already on comfort measures -defer to primary service and palliative and family for best way to pursue hospice/comfort measures here but I would resume diuretics -- had 40 mg po IV this am; could tolerate po diuretics given her alertness -for now daily bmp if we are trying to mange diuretic dosing but if she is truly comfort measures, consider suspending labs (2) Anasarca: -resume torsemide as tolerated if consistent with goals of care -will give lasix 80 mg IV in am x 1, give additional dose if dyspnea develops -need to clarify goals of care here >> whether to use diuretics for comfort only/ to improve immediate respiratory status or to use standing diuretics thank you for including me in the care of this pt Subjective seen on rounds this am; pt much brighter/more alert and lucid this am. does however state "I've had better mornings." + thirst. does feel her inspirations are short at times; feels LE edema more noticeable. denies sob; denies musculoskeletal pain, denies voiding difficulties/ sx; no n/v/D. Physical Exam Vital Signs (Past 24 Hours): Last Vital Signs Temp 36.6 C 12/29/18 13:54 Pulse 60 12/29/18 13:54 Resp 20 12/29/18 13:54 BP 145/68 H 12/29/18 13:54 Pulse Ox 91 12/29/18 13:54 Constitutional: well developed and + frail appearing; not in distress sitting up in bed looking around, on 02NC; needs help to find call button sitting on her stomach Eyes: EOM intact bilaterally ENMT: Ears: no external ear abnormality Nose: no external nose abnormality Mouth: + dry oral mucous membranes Neck: no nuchal rigidity Respiratory: + labored breathing (slight), + prolonged expiratory phase and + paradoxical thoraco-abdominal movement Auscultation: + diminished lung sounds (galilea R base) Cardiovascular: Rate/Rhythm: regular rate and regular rhythm Heart Sounds: + murmur Extremities: + edema (2-3+ BLE) Gastrointestinal (Abdomen): Inspection/Auscultation: normal bowel sounds Percussion/Palpation: abdomen soft; abdomen nontender Musculoskeletal: Extremities: strength 5/5 throughout Skin: no rashes, warm and dry Neurologic: gaona, fluent speech; mild confusion; forgetful too Psychiatric: Orientation: alert Eye Contact: + fair eye contact Speech: normal rate/rhythm/volume of speech Affect: + flat affect Insight: + limited insight Judgement: + limited judgement Genitourinary: no li Results & Data Laboratory Results Abnormal lab results 12/29/18 12/29/18 Range/Units 09:25 09:32 BUN 75 H (7-18) mg/dl Creatinine 2.16 H D (0.6-1.2) mg/dl BUN/Creatinine Ratio 34.9 H (10-20) Glucose 119 H (70-99) mg/dl Ammonia 60.1 H (11-32) umol/L
== END 2018-12-29 13:15 | disposition hospice, inpatient (51) ==
LOC: ED 06:40 → 2W 06:40 → SUATTDRO 09:32 → 2W 10:11